=== PATIENT | female | born 1960 | race Caucasian/White ===

== ENCOUNTER → 2016-11-24 | Outpatient (CLI) | payer BC ==
[~2016-11-24] MED LIST: ACHD5005 PO; ASP325T PO; ATEN50TA PO; DULO60CA6 PO; GLIM4TAB PO; LOSA1TAB20 PO; LOVA20TA2 PO; OMEP-10 PO; SIMV20TA3 PO; SITA1TAB2 PO
--- NOTE | 2016-11-28 09:29 | Diagnostic Imaging Report ---
Bilateral screening mammogram The current study was also evaluated with a Computer Aided Detection (CAD) system. Indication: Screening. No current complaints stated on the questionnaire. COMPARISON: 6--16 FINDINGS: The breasts are composed of scattered fibroglandular densities. There are occasional benign-appearing calcifications. Allowing for technique and positional differences, no suspicious change is seen. IMPRESSION: No significant change. ACR BI-RADS Category 2: Benign findings. Result letter will be mailed to the patient. Note: At least 10% of breast cancer is not imaged by mammography. Dictated by: Dictated on workstation # [id number]
== END ==
LOC: RAD 12:47
PROVIDERS: ATTEND Obstetrics & Gynecology
DX: Z12.31 Encounter for screening mammogram for malignant neoplasm of breast (principal)
CPT/HCPCS: 77067

== ENCOUNTER → 2016-12-08 | Outpatient (CLI) | payer BC ==
--- NOTE | 2016-12-08 16:01 | Diagnostic Imaging Report ---
INDICATION: Knee pain, grinding. EXAMINATION: Three views of the right knee were obtained. FINDINGS: Tricompartmental osteoarthritic changes, medial greater than lateral, and most notably at the patellofemoral compartment. No opaque loose body. No fracture. IMPRESSION: Osteoarthritis with no acute bony abnormality. Dictated by: Dictated on workstation # [id number]
== END ==
LOC: RAD 13:23
PROVIDERS: ATTEND Nurse Practitioner Family
DX: M17.11 Unilateral primary osteoarthritis, right knee (principal)
CPT/HCPCS: 73562

== ENCOUNTER → 2016-12-27 | Outpatient (CLI) | payer BC ==
--- NOTE | 2016-12-27 11:31 | Diagnostic Imaging Report ---
PROCEDURE: MRI right joint lower extremity without contrast. TECHNIQUE: Multiplanar, multisequence MR imaging of the right knee was performed without contrast. COMPARISON: Knee radiographs of 12/08/2016. INDICATION: Knee pain. FINDINGS: MENISCI Medial meniscus: There is a complete versus near complete radial tear through the posterior horn of the medial meniscus. The posterior root insertional fibers have a heterogeneous frayed appearance but some may remain intact. The body of the medial meniscus is partially extruded into the medial gutter. Lateral meniscus: Mild degenerative free edge truncation of the posterior horn of the lateral meniscus. LIGAMENTS ACL: Intact. PCL: Intact. MCL: MCL is intact with moderate thickening of the proximal aspect, indicative of old MCL injury which has healed through mature scar formation. LCL: The lateral collateral ligamentous complex is intact. EXTENSOR MECHANISM The extensor mechanism is intact. CARTILAGE Medial compartment: Multifocal partial-thickness chondral fissuring and chondral loss. There is full-thickness chondral fissuring within the posterior weightbearing surface. Lateral compartment: Low-grade partial-thickness chondral wear throughout the lateral compartment without superimposed full-thickness chondromalacia. Patellofemoral compartment: Diffuse full-thickness chondral loss throughout the lateral patellar facet with underlying subchondral bone marrow edema and cystic change. There is full-thickness chondromalacia of the opposing lateral femoral trochlea as well. BONE No fracture, stress fracture or osteonecrosis. SOFT TISSUE: Small knee joint effusion with mild synovitis. Small Viramontes's cyst with partial rupture as fluid is seen tracking along the superficial aspect of the medial head of the gastrocnemius. IMPRESSION: 1. Complete versus near-complete radial tear of the posterior horn of the medial meniscus. The body of the medial meniscus is partially extruded into the gutter. 2. 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 3. Small Viramontes's cyst which is partially ruptured. 4. Small knee joint effusion with synovitis. Dictated by: Dictated on workstation # [id number]
== END ==
LOC: RAD 10:08
PROVIDERS: ATTEND Nurse Practitioner Family
DX: S83.241A Other tear of medial meniscus, current injury, right knee, initial encounter (principal); M22.41 Chondromalacia patellae, right knee; M71.21 Synovial cyst of popliteal space [Baker], right knee; M25.461 Effusion, right knee; X58.XXXA Exposure to other specified factors, initial encounter; Y99.8 Other external cause status
CPT/HCPCS: 73721

== ENCOUNTER → 2018-04-29 | Outpatient (CLI) | payer BC ==
--- NOTE | 2018-04-30 10:54 | Diagnostic Imaging Report ---
Digital mammogram. Bilateral screening with 3-D tomosynthesis. The study was compared to the prior exams of 11/24/2016, 11/11/2015, and 09/24/2014. At this time there are no current complaints. The current study was also evaluated with a Computer Aided Detection (CAD) system. FINDINGS: There are scattered fibroglandular densities in both breasts which could obscure a lesion. Overall, there does not appear to have been any significant change when compared to the prior exam. No primary or secondary sign of malignancy is noted. IMPRESSION: There is no radiographic evidence for malignancy. ACR BI-RADS Category 1: Negative. Result letter will be mailed to the patient. Note: At least 10% of breast cancer is not imaged by mammography. Dictated by: Dictated on workstation # [id number]
== END ==
LOC: RAD 07:53
PROVIDERS: ATTEND Obstetrics & Gynecology
DX: Z12.31 Encounter for screening mammogram for malignant neoplasm of breast (principal)
CPT/HCPCS: 77067

== ENCOUNTER 2018-05-30 12:28 | Outpatient (CLI) | payer BC ==
[~2018-05-30] VITALS: Ht 170.2 cm; Wt 108.4 kg
[~2018-05-30 12:28] MED LIST changes: +DULA0.75 SQ; +DULO20CA18 PO; +METF-397 PO
== END 2018-05-30 12:30 | disposition home or self-care (01) ==
LOC: PREOP 12:28
PROVIDERS: ATTEND Internal Medicine
DX: Z01.818 Encounter for other preprocedural examination (principal)

== ENCOUNTER 2018-05-31 07:25 | Day surgery (SDC) | payer BC ==
--- NOTE | 2018-05-17 06:04 | HISTORY AND PHYSICAL ---
DATE OF SERVICE: COLONOSCOPY HISTORY AND PHYSICAL HISTORY OF PRESENT ILLNESS: The patient is a 57-year-old white female referred by Dr. Salinas for screening colonoscopy. She was evaluated in the office on 05/09/2018. She is deemed to be a little higher than average risk as she has a grandmother diagnosed with colon cancer in her 60s. She reports that she has been feeling well. Dr. Salinas, local senior software development manager wanted my opinion on some lesions on her back. Sometimes, she has some itching associated. She has no history of skin cancer and is not aware of any family history for melanoma. She has had no change in bowel habit. Denies bright red blood per rectum or melena and has had no reported abdominal pain. PAST MEDICAL HISTORY: Significant for type 2 diabetes mellitus, hypertension, hyperlipidemia with no known history of vascular disease. MEDICATIONS ON ADMISSION: Include: 1. Trulicity 1.5 mg subcu weekly. 2. Atenolol 100 mg daily. 3. Simvastatin 40 mg daily. 4. Losartan and HCT 100/12.5 daily. 5. Glimepiride 4 mg daily. 6. Metformin 500 mg daily. 7. Duloxetine 30 mg daily. FAMILY HISTORY: Pertinent for colon cancer in grandmother diagnosed in her 60s. Both parents are living in their 80s. One may have had a history of colon polyps. 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 She has a 15 pack smoking history, but quit many years ago with no history of illicit drug use. PHYSICAL EXAMINATION: GENERAL: Reveals a pleasant white female in no acute distress. VITAL SIGNS: Weight is 243.8 pounds, he is up eight pounds from 5 years ago. Blood pressure 142/62. Heart rate 72 and regular. HEENT: Unremarkable. Sclerae nonicteric. CHEST: Clear to auscultation. CARDIOVASCULAR: Reveals regular rate and rhythm without murmur, S3 or S4. ABDOMEN: Soft, supple without mass, organomegaly or tenderness. EXTREMITIES: Reveal no cyanosis, clubbing or edema. SKIN: She has multiple lentigines on her back. No evidence for neoplasia is identified. Skin is slightly dry. ASSESSMENT AND PLAN: 1. The patient was set up for screening colonoscopy on . Prep instructions with Suprep kit were given and questions were answered. 2. The patient was reassured about multiple lentigines on her back. Discussed the importance of sunscreen. 3. Mild dyshidrotic eczema. Discussed the importance of moisturizing and avoiding soap to the back or extremities unless visible dirt is present. Otherwise, she is using it in moist areas of the body. I thank you for the referral of this pleasant lady. Sincerely, Job ID: [id number] DocumentID: [id number] Dictated Date: 05/09/2018 16:53:41 Regulatory Associate Date: 05/09/2018 18:02:46 Dictated By: LIBORIO العلي MD
[~2018-05-31] VITALS: Ht 170.2 cm; Wt 108.4 kg
[2018-05-31] MEDS ORDERED: D5 LR IV SOLUTION 1,000 ML IV ONE (07:36)
[2018-05-31 07:54] VITALS: BP 140/73
[2018-05-31] MEDS ORDERED: D5 LR IV SOLUTION 1,000 ML IV STA (08:05)
[2018-05-31] MEDS ORDERED: LIDOCAINE JELLY 2% 6 ML SYRINGE ONE (08:12)
[2018-05-31] MEDS ORDERED: MIDAZOLAM 2 MG/2 ML (VERSED) VIAL ONE ×3 (08:12)
[2018-05-31] MEDS ORDERED: fentaNYL INJECTION 100 MCG/2 ML AMP ONE ×2 (08:12→08:47)
[2018-05-31] MEDS ORDERED: LIDOCAINE JELLY 2% 6 ML SYRINGE MM PRN (08:15)
[2018-05-31] MEDS ORDERED: fentaNYL INJECTION 100 MCG/2 ML AMP IVP ONE (08:15)
[2018-05-31] MEDS ORDERED: MIDAZOLAM 2 MG/2 ML (VERSED) VIAL IVP ONE (08:15)
[2018-05-31 09:15] VITALS: BP 126/61
--- OUTSIDE RECORDS SUMMARY | 2018-05-31 09:15 | XMS REPORT | CCD ---
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 Name Role Phone PP Unavailable CCM Unavailable Summary Purpose Interface Exchange Insurance Providers Payer name Policy type / Coverage type Covered alliance party ID Effective Begin Date Effective End Date Blue Cross [facility] Blue Cross/[facility] [id number] Unknown Unknown Family history Mother Diagnosis Age At Onset Diabetes mellitus Type 2 Unknown Depression Unknown Brother Diagnosis Age At Onset Hypertension Unknown Diabetes mellitus Type 2 Unknown Daughter Diagnosis Age At Onset Hypertension Unknown Father Diagnosis Age At Onset Hypertension Unknown Social History Social History Element Codes Description Effective Dates Marital status Unknown Stuart 07/03/2017 Number of children Unknown 2 01/11/2015 Employment Unknown Currently employed [employer] 01/11/[address]: 0638688 Quit over 10 years ago 01/11/2015 Number of years using tobacco Unknown 10 - 20 01/11/2015 Number of cigarettes/day Unknown 20 (One Pack) 01/11/2015 Alcohol history Unknown occasionally drinks alcohol 01/11/2015 Allergies, Adverse Reactions, Alerts Substance Reaction Codes Entered Date Inactivated Date Status * NO KNOWN FOOD ALLERGIES Unknown 01/11/2015 No Inactive Date Active * NO KNOWN DRUG ALLERGIES Unknown 01/11/2015 No Inactive Date Active Past Medical History Illness Codes Condition Status Onset Date Resolved Date Encounter for screening mammogram for malignant neoplasm of breast ICD-9: V76.10 ICD-10: Z12.31 Active 05/03/2018 Unknown Acute laryngopharyngitis ICD-9: 465.0 ICD-10: J06.0 Active 07/03/2017 Unknown Acute upper respiratory infection, unspecified ICD-9: 465.9 ICD-10: J06.9 Active 01/09/2017 Unknown Gastro-esophageal reflux disease without esophagitis ICD-9: 530.81 ICD-10: K21.9 Active 04/05/2018 Unknown Other allergic rhinitis ICD-9: 477.8 ICD-10: J30.89 Active 07/03/2017 Unknown Rash and other nonspecific skin eruption ICD-9: 782.1 ICD-10: R21 Active 04/05/2018 Unknown Ocular pain, left eye ICD-9: 379.91 ICD-10: H57.12 Active 11/09/2017 Unknown Pain in right knee ICD -9: 719.46 ICD-10: M25.561 Active 12/08/2016 Unknown Other malaise ICD-9: 780.79 ICD-10: R53.81 Active 07/03/2017 Unknown Essential (primary) hypertension ICD-9: 401.9 ICD-10: I10 Active 06/12/2016 Unknown Type 2 diabetes mellitus without complications ICD-9: 250.00 ICD-10: E11.9 Active 12/13/2015 Unknown Cough ICD-9: 786.2 ICD-10: R05 Active 06/12/2016 Unknown Other instability, right knee ICD-9: 718.86 ICD-10: M25.361 Active 12/20/2016 Unknown Mixed hyperlipidemia ICD-9: 272.4 ICD-10: E78.2 Active 07/11/2015 Unknown Acute recurrent maxillary sinusitis ICD-9: 461.0 ICD-10: J01.01 Active 06/12/2016 Unknown Actinic keratosis ICD- 9: 702.0 ICD-10: L57.0 Active 12/13/2015 Unknown Diabetes Unknown Active 01/11/2015 Unknown Hyperlipidemia Unknown Active 01/11/2015 Unknown Hypertension Unknown Active 01/11/2015 Unknown ANXIETY STATE ICD-9: 300.00 Active 01/10/2015 Unknown DIABETES TYPE II ICD-9 : 250.00 Active 01/10/2015 Unknown ESSENTIAL HYPERTENSION ICD-9: 401.9 Active 01/10/2015 Unknown HYPERLIPIDEMIA ICD-9: 272.4 Active 01/10/2015 Unknown Problems Condition Codes Effective Dates Condition Status Encounter for screening mammogram for malignant neoplasm of breast ICD-9: V76.10 ICD-10: Z12.31 05/03/2018 Active Acute laryngopharyngitis ICD-9: 465.0 ICD-10: J06.0 07/03/2017 Active Acute upper respiratory infection, unspecified ICD-9: 465.9 ICD-10: J06.9 01/09/2017 Active Gastro-esophageal reflux disease without esophagitis ICD-9: 530.81 ICD-10: K21.9 04/05/2018 Active Other allergic rhinitis ICD-9: 477.8 ICD-10: J30.89 07/03/2017 Active Rash and other nonspecific skin eruption ICD-9: 782.1 ICD-10: R21 04/05/2018 Active Ocular pain, left eye ICD-9: 379.91 ICD-10: H57.12 11/09/2017 Active Pain in right knee ICD -9: 719.46 ICD-10: M25.561 12/08/2016 Active Other malaise ICD-9: 780.79 ICD-10: R53.81 07/03/2017 Active Essential (primary) hypertension ICD-9: 401.9 ICD-10: I10 06/12/2016 Active Type 2 diabetes mellitus without complications ICD-9: 250.00 ICD-10: E11.9 12/13/2015 Active Cough ICD-9: 786.2 ICD-10: R05 06/12/2016 Active Other instability, right knee ICD-9: 718.86 ICD-10: M25.361 12/20/2016 Active Mixed hyperlipidemia ICD-9: 272.4 ICD-10: E78.2 07/11/2015 Active Acute recurrent maxillary sinusitis ICD-9: 461.0 ICD-10: J01.01 06/12/2016 Active Actinic keratosis ICD- 9: 702.0 ICD-10: L57.0 12/13/2015 Active Diabetes Unknown 01/11/2015 Active Hyperlipidemia Unknown 01/11/2015 Active Hypertension Unknown 01/11/2015 Active ANXIETY STATE ICD-9: 300.00 01/10/2015 Active DIABETES TYPE II ICD-9 : 250.00 01/10/2015 Active ESSENTIAL HYPERTENSION ICD-9: 401.9 01/10/2015 Active HYPERLIPIDEMIA ICD-9: 272.4 01/10/2015 Active Medications Medication Codes Instructions Start Date Stop Date Status Fill Instructions ketoconazole 2 % topical cream RxNorm: 016356 1 Application TOP BID 04/05/2018 No Stop Date Active Zithromax Z-Vignesh 250 mg tablet RxNorm: 716043 1 Tablet(s) PO UD 04/05/2018 No Stop Date Active triamcinolone acetonide 0.025 % topical cream RxNorm: 7205156 1 Application TOP BID 04/05/2018 No Stop Date Active Diflucan 150 mg tablet RxNorm: 864835 1 Tablet(s) PO daily dont start until z- pack is finished 04/05/2018 04/11/2018 Inactive losartan 100 mg-hydrochlorothiazide 12.5 mg tablet RxNorm: 072679 TAKE ONE TABLET BY MOUTH DAILY 02/20/2018 07/19/2018 Active Cymbalta 30 mg capsule,delayed release RxNorm: 948302 TAKE ONE CAPSULE BY MOUTH DAILY 02/19/2018 07/18/2018 Active atenolol 100 mg tablet RxNorm: 116585 TAKE ONE TABLET BY MOUTH DAILY 01/25/2018 07/18/2019 Active glimepiride 4 mg tablet RxNorm: 964105 1 Tablet(s) PO daily -Managed by Dr. Hsu 11/09/2017 No Stop Date Active gentamicin 0.3 % eye drops RxNorm: 133079 2 Drop(s) ophthalmic (eye) QID 11/09/2017 11/15/2017 Inactive atenolol 100 mg tablet RxNorm: 180736 1 Tablet(s) PO daily TAKE ONE TABLET BY MOUTH DAILY 08/01/2017 01/24/2018 Inactive Cymbalta 30 mg capsule,delayed release RxNorm: 647811 TAKE ONE CAPSULE BY MOUTH DAILY 07/30/2017 01/25/2018 Inactive losartan 100 mg-hydrochlorothiazide 12.5 mg tablet RxNorm: 185759 TAKE ONE TABLET BY MOUTH DAILY 07/30/2017 01/25/2018 Inactive Trulicity 1.5 mg/0.5 mL subcutaneous pen injector RxNorm: 9378282 1 injection SQ QW -Managed by Dr. Hsu 07/03/2017 No Stop Date Active Zithromax Z-Vignesh 250 mg tablet RxNorm: 166082 1 Tablet(s) PO UD 07/03/2017 07/29/2017 Inactive Cymbalta 30 mg capsule,delayed release RxNorm: 152916 TAKE ONE CAPSULE BY MOUTH DAILY 03/12/2017 07/09/2017 Inactive losartan 100 mg-hydrochlorothiazide 12.5 mg tablet RxNorm: 881453 TAKE ONE TABLET BY MOUTH DAILY 03/07/2017 07/04/2017 Inactive Diflucan 150 mg tablet RxNorm: 445880 1 Tablet(s) PO daily 12/201601/21/2017 Inactive Diflucan 150 mg tablet RxNorm: 106424 1 Tablet(s) PO daily 12/201601/14/2017 Inactive ceftriaxone 500 mg solution for injection RxNorm: 0946477 1 Milliliter(s) Inj 01/09/2017 01/09/2017 Inactive Augmentin 875 mg-125 mg tablet RxNorm: 723738 1 Tablet(s) PO BID 01/09/2017 01/15/2017 Inactive Voltaren 1 % topical gel RxNorm: 767632 1 Application TOP TID as needed 12/08/2016 No Stop Date Active losartan 100 mg-hydrochlorothiazide 12.5 mg tablet RxNorm: 129973 TAKE ONE TABLET BY MOUTH DAILY 12/01/2016 02/28/2017 Inactive atenolol 100 mg tablet RxNorm: 523494 TAKE ONE TABLET BY MOUTH DAILY 12/01/2016 02/28/2017 Inactive atenolol 100 mg tablet RxNorm: 960619 1 Tablet(s) PO daily 11/30/2016 Inactive losartan 100 mg-hydrochlorothiazide 12.5 mg tablet RxNorm: 926330 1 Tablet(s) PO daily 11/01/2016 11/30/2016 Inactive atenolol 50 mg tablet RxNorm: 535630 TAKE ONE TABLET BY MOUTH DAILY 08/04/2016 10/23/2016 Inactive Cymbalta 30 mg capsule,delayed release RxNorm: 269290 TAKE ONE CAPSULE BY MOUTH DAILY 08/04/2016 12/31/2016 Inactive losartan 50 mg-hydrochlorothiazide 12.5 mg tablet RxNorm: 466804 TAKE ONE TABLET BY MOUTH DAILY 06/19/2016 10/23/2016 Inactive doxycycline hyclate 100 mg tablet RxNorm: 742477 1 Tablet(s) PO BID 06/13/2016 06/19/2016 Inactive Kenalog 40 mg/mL suspension for injection RxNorm: 1778033 Milliliter(s) Inj 06/13/2016 06/13/2016 Inactive atenolol 50 mg tablet RxNorm: 419360 1 Tablet(s) PO daily 201511/09/2015 Inactive atenolol 50 mg tablet RxNorm: 615201 1 Tablet(s) PO daily 201505/07/2016 Inactive Cymbalta 30 mg capsule,delayed release RxNorm: 097396 TAKE ONE CAPSULE BY MOUTH DAILY 09/16/2015 03/13/2016 Inactive losartan 50 mg-hydrochlorothiazide 12.5 mg tablet RxNorm: 315670 TAKE ONE TABLET BY MOUTH DAILY 08/06/2015 02/01/2016 Inactive Cymbalta 30 mg capsule,delayed release RxNorm: 732866 TAKE ONE CAPSULE BY MOUTH DAILY 06/28/2015 08/26/2015 Inactive losartan 50 mg-hydrochlorothiazide 12.5 mg tablet RxNorm: 104814 1 Tablet(s) PO daily 05/05/2015 07/03/2015 Inactive Cymbalta 60 mg capsule,delayed release RxNorm: 243512 1 Capsule(s) PO QHS 03/15/2015 07/11/2015 Inactive Cymbalta 30 mg capsule,delayed release RxNorm: 249857 1 Capsule(s) PO daily 01/11/2015 04/10/2015 Inactive Cymbalta 60 mg capsule,delayed release RxNorm: 742304 1 Capsule(s) PO QHS please call office for appointment 11/23/2014 Inactive Cymbalta 60 mg capsule,delayed release RxNorm: 809769 1 Capsule(s) PO QHS please call office for appointment 11/23/2014 Inactive simvastatin 20 mg tablet RxNorm: 864636 1 Tablet(s) PO daily No Start Date Active metformin 500 mg tablet RxNorm: 619259 2 Tablet(s) PO BID No Start Date Active glimepiride 4 mg tablet RxNorm: 020213 2 Tablet(s) PO daily No Start Date 11/08/2017 Inactive Lantus 100 unit/mL subcutaneous solution RxNorm: 148872 12 Unit(s) SQ QHS No Start Date 01/21/2017 Inactive atenolol oral RxNorm: 1202 oral No Start Date 12/14/2015 Inactive Bydureon 2 mg/0.65 mL subcutaneous pen injector RxNorm: 6272546 Milliliter(s) SQ weekly No Start Date 12/13/2015 Inactive losartan 50 mg-hydrochlorothiazide 12.5 mg tablet RxNorm: 480940 1 Tablet(s) PO daily No Start Date 05/04/2015 Inactive Trulicity 0.75 mg/0.5 mL subcutaneous pen injector RxNorm: 8266593 Milliliter(s) SQ QW No Start Date 07/02/2017 Inactive Medication Administered Medication Codes Instructions Start Date Status ceftriaxone 500 mg solution for injection RxNorm: 0373136 1Milliliter 01/09/2017 No longer Active Kenalog 40 mg/mL suspension for injection RxNorm: 1181772 Milliliter 06/13/2016 No longer Active Immunizations No Immunization data Assessments Condition Codes Effective Dates Encounter for screening mammogram for malignant neoplasm of breast ICD-10: Z12.31 ICD-9: V76.10 05/03/2018 Gastro-esophageal reflux disease without esophagitis ICD-10 : K21.9 ICD-9: 530.81 04/05/2018 Acute upper respiratory infection, unspecified ICD-10: J06.9 ICD-9: 465.9 04/05/2018 Other allergic rhinitis ICD-10: J30.89 ICD-9: 477.8 04/05/2018 Rash and other nonspecific skin eruption ICD-10: R21 ICD-9: 782.1 04/05/2018 Pain in right knee ICD-10: M25.561 ICD-9: 719.46 11/09/2017 Ocular pain, left eye ICD-10: H57.12 ICD-9: 379.91 11/09/2017 Acute laryngopharyngitis ICD-10: J06.0 ICD-9: 465.0 07/03/2017 Other malaise ICD-10: R53.81 ICD-9: 780.79 07/03/2017 Type 2 diabetes mellitus without complications ICD-10: E11.9 ICD-9: 250.00 03/30/2017 Essential (primary) hypertension ICD-10: I10 ICD-9: 401.9 03/30/2017 Cough ICD-10: R05 ICD-9: 786.2 01/09/2017 Other instability, right knee ICD-10: M25.361 ICD-9: 718.86 12/20/2016 Mixed hyperlipidemia ICD-10: E78.2 ICD-9: 272.4 09/29/2016 Acute recurrent maxillary sinusitis ICD-10: J01.01 ICD-9: 461.0 06/13/2016 Actinic keratosis ICD-10: L57.0 ICD-9: 702.0 12/14/2015 ESSENTIAL HYPERTENSION ICD-9: 401.9 01/11 ANXIETY STATE ICD-9: 300.00 01/11/2015 HYPERLIPIDEMIA ICD-9: 272.4 01/11/2015 DIABETES TYPE II ICD-9: 250.00 2014 Reason For Visit Reason For Visit Effective Dates Notes gastroesophageal reflux 04/05/2018 eyelid edema 11/09/2017 cough 07/03/2017 hypertension 03/30/2017 earache 01/09/2017 knee pain 12/20/2016 knee pain 12/08/2016 hypertension 11/30/2016 medication follow up 11/01/2016 hypertension 10/18/2016 anxiety 09/29/2016 sinus congestion 06/13/2016 skin lesion 12/14/2015 anxiety 07/12/2015 anxiety 01/11/2015 Results Observation Observation Code Item Item Code Result Date C A/B FLU 7269494 Influenza A Scr Negative 07/03/2017 C A/B FLU 0634800 Influenza B Scr Negative 07/03/2017 C A/B FLU 2475976 Influenza Intrp B AG: PRID:PT:NOSE:NOM:IF See Footnote 07/03/2017 Review of Systems System Result Effective Dates Constitutional recent illness 04/05/2018 Constitutional chills 04/05/2018 Constitutional No diaphoresis 04/05/2018 Eyes No eye erythema 04/05/2018 Ears/Nose/Throat/Neck nasal allergies Ears/Nose/Throat/Neck nasal discharge Ears/Nose/Throat/Neck postnasal drip Ears/Nose/Throat/Neck sinus congestion Cardiovascular No chest pain/pressure Cardiovascular No dyspnea 04/05/2018 Respiratory No chest congestion 2017 Respiratory cough 04/05/2018 Respiratory No dyspnea 04/05/2018 Gastrointestinal No constipation 2017 Gastrointestinal No diarrhea 04/05/2018 Gastrointestinal No nausea 04/05/2018 Gastrointestinal No vomiting 04/05/2018 Neurologic No alteration of consciousness 04/05/2018 Neurologic No mental status change 2017 Constitutional No fever 04/05/2018 Gastrointestinal gastroesophageal reflux 04/05/2018 Dermatologic rash 04/05/2018 Constitutional recent illness 11/09/2017 Constitutional No anorexia 11/09/2017 Constitutional No night sweats 2017 Constitutional No chills 11/09/2017 Constitutional No diaphoresis 11/09/2017 Constitutional No fatigue 11/09/2017 Constitutional No fever 11/09/2017 Constitutional No insomnia 11/09/2017 Constitutional No malaise 11/09/2017 Constitutional No weight loss 11/09/2017 Constitutional No weight gain 11/09/2017 Eyes eye erythema 11/09/2017 Ears/Nose/Throat/Neck nasal allergies 06/2017 Ears/Nose/Throat/Neck nasal discharge 06/2017 Musculoskeletal joint complaint 2017 Dermatologic No rash 11/09/2017 Neurologic No alteration of consciousness 11/09/2017 Respiratory No cough 11/09/2017 Constitutional recent illness 07/03/2017 Constitutional chills 07/03/2017 Constitutional No diaphoresis 07/03/2017 Constitutional fever 07/03/2017 Eyes No eye erythema 07/03/2017 Ears/Nose/Throat/Neck nasal allergies Ears/Nose/Throat/Neck nasal discharge Ears/Nose/Throat/Neck postnasal drip Ears/Nose/Throat/Neck sinus congestion Ears/Nose/Throat/Neck sore throat 2017 Cardiovascular No chest pain/pressure Cardiovascular No dyspnea 07/03/2017 Respiratory No chest congestion 2017 Respiratory cough 07/03/2017 Respiratory No dyspnea 07/03/2017 Gastrointestinal No constipation 2017 Gastrointestinal No diarrhea 07/03/2017 Gastrointestinal No nausea 07/03/2017 Gastrointestinal No vomiting 07/03/2017 Dermatologic No rash 07/03/2017 Neurologic No alteration of consciousness 07/03/2017 Neurologic No mental status change 2017 Constitutional No recent illness 2016 Constitutional No chills 03/30/2017 Constitutional No diaphoresis 03/30/2017 Constitutional No fever 03/30/2017 Eyes No blindness 03/30/2017 Ears/Nose/Throat/Neck No nasal allergies 03/30/2017 Ears/Nose/Throat/Neck No nasal discharge 03/30/2017 Cardiovascular No chest pain/pressure Cardiovascular No dyspnea 03/30/2017 Respiratory No cough 03/30/2017 Respiratory No dyspnea 03/30/2017 Dermatologic No rash 03/30/2017 Neurologic No alteration of consciousness 03/30/2017 Neurologic No mental status change 2016 Gastrointestinal No abdominal pain 2016 Gastrointestinal No constipation 2016 Gastrointestinal No diarrhea 03/30/2017 Genitourinary/Nephrology No dysuria 03/30 Musculoskeletal joint complaint 2016 Psychiatric No depression 03/30/2017 Endocrine No dry or coarse skin 2016 Constitutional recent illness 01/09/2017 Constitutional No anorexia 01/09/2017 Constitutional night sweats 01/09/2017 Constitutional chills 01/09/2017 Constitutional diaphoresis 01/09/2017 Constitutional fatigue 01/09/2017 Constitutional No fever 01/09/2017 Constitutional No insomnia 01/09/2017 Constitutional No malaise 01/09/2017 Constitutional No weight loss 01/09/2017 Constitutional No weight gain 01/09/2017 Eyes No eye erythema 01/09/2017 Eyes No eye discharge 01/09/2017 Ears/Nose/Throat/Neck No dizziness 2016 Ears/Nose/Throat/Neck headache 2016 Ears/Nose/Throat/Neck nasal allergies 06/2016 Ears/Nose/Throat/Neck nasal discharge 06/2016 Ears/Nose/Throat/Neck otalgia 01/09/2017 Ears/Nose/Throat/Neck sore throat 2016 Cardiovascular No chest pain/pressure 06/2016 Cardiovascular No dyspnea 01/09/2017 Cardiovascular No edema 01/09/2017 Respiratory No productive sputum 2016 Respiratory No chest congestion 2016 Respiratory cough 01/09/2017 Gastrointestinal No abdominal pain 2016 Gastrointestinal No constipation 2016 Gastrointestinal No diarrhea 01/09/2017 Genitourinary/Nephrology No dysuria 01/09 Musculoskeletal No joint complaint 2016 Dermatologic No rash 01/09/2017 Neurologic No alteration of consciousness 01/09/2017 Constitutional No recent illness 2016 Constitutional No chills 12/20/2016 Constitutional No diaphoresis 12/20/2016 Constitutional No fever 12/20/2016 Eyes No eye erythema 12/20/2016 Ears/Nose/Throat/Neck No nasal allergies 12/20/2016 Ears/Nose/Throat/Neck No nasal discharge 12/20/2016 Cardiovascular No chest pain/pressure 05/2017 Cardiovascular No dyspnea 12/20/2016 Respiratory No cough 12/20/2016 Respiratory No dyspnea 12/20/2016 Musculoskeletal joint complaint 2016 Dermatologic No rash 12/20/2016 Neurologic No alteration of consciousness 12/20/2016 Neurologic No mental status change 2016 Constitutional No recent illness 2016 Constitutional No chills 12/08/2016 Constitutional No diaphoresis 12/08/2016 Constitutional No fever 12/08/2016 Eyes No eye erythema 12/08/2016 Ears/Nose/Throat/Neck No nasal allergies 12/08/2016 Ears/Nose/Throat/Neck No nasal discharge 12/08/2016 Cardiovascular No chest pain/pressure Cardiovascular No dyspnea 12/08/2016 Respiratory No cough 12/08/2016 Respiratory No dyspnea 12/08/2016 Musculoskeletal joint complaint 2016 Dermatologic No rash 12/08/2016 Neurologic No alteration of consciousness 12/08/2016 Neurologic No mental status change 2016 Constitutional No recent illness 2016 Constitutional No chills 11/30/2016 Constitutional No diaphoresis 11/30/2016 Constitutional No fever 11/30/2016 Eyes No eye erythema 11/30/2016 Ears/Nose/Throat/Neck No nasal allergies 11/30/2016 Ears/Nose/Throat/Neck No nasal discharge 11/30/2016 Cardiovascular No chest pain/pressure Cardiovascular No dyspnea 11/30/2016 Cardiovascular hypertension 11/30/2016 Respiratory No cough 11/30/2016 Respiratory No dyspnea 11/30/2016 Neurologic No alteration of consciousness 11/30/2016 Neurologic No mental status change 2016 Dermatologic No rash 11/30/2016 Constitutional No recent illness 2016 Constitutional No fever 11/01/2016 Constitutional No chills 11/01/2016 Constitutional No diaphoresis 11/01/2016 Eyes No eye erythema 11/01/2016 Ears/Nose/Throat/Neck No nasal discharge 11/01/2016 Ears/Nose/Throat/Neck No nasal allergies 11/01/2016 Cardiovascular No chest pain/pressure Cardiovascular No dyspnea 11/01/2016 Cardiovascular hypertension 11/01/2016 Respiratory No cough 11/01/2016 Respiratory No dyspnea 11/01/2016 Neurologic No alteration of consciousness 11/01/2016 Neurologic No mental status change 2016 Constitutional No recent illness 2016 Constitutional No chills 10/18/2016 Constitutional No diaphoresis 10/18/2016 Constitutional No fever 10/18/2016 Eyes No eye erythema 10/18/2016 Ears/Nose/Throat/Neck No nasal discharge 10/18/2016 Ears/Nose/Throat/Neck No nasal allergies 10/18/2016 Cardiovascular No chest pain/pressure 03/2017 Cardiovascular No dyspnea 10/18/2016 Cardiovascular hypertension 10/18/2016 Cardiovascular No palpitations 2016 Respiratory No cough 10/18/2016 Respiratory No dyspnea 10/18/2016 Gastrointestinal No vomiting 10/18/2016 Gastrointestinal No nausea 10/18/2016 Gastrointestinal No abdominal pain 2016 Dermatologic No rash 10/18/2016 Neurologic No alteration of consciousness 10/18/2016 Neurologic No mental status change 2016 Neurologic headache 10/18/2016 Constitutional No recent illness 2016 Constitutional No anorexia 09/29/2016 Constitutional No night sweats 2016 Constitutional No chills 09/29/2016 Constitutional No diaphoresis 09/29/2016 Constitutional No fatigue 09/29/2016 Constitutional No fever 09/29/2016 Constitutional No insomnia 09/29/2016 Constitutional No malaise 09/29/2016 Constitutional No weight loss 09/29/2016 Constitutional No weight gain 09/29/2016 Eyes No eye discharge 09/29/2016 Eyes No eye erythema 09/29/2016 Ears/Nose/Throat/Neck No nasal allergies 09/29/2016 Ears/Nose/Throat/Neck No nasal discharge 09/29/2016 Cardiovascular No chest pain/pressure Cardiovascular No dyspnea 09/29/2016 Cardiovascular No edema 09/29/2016 Respiratory No productive sputum 2016 Gastrointestinal No abdominal pain 2016 Gastrointestinal No constipation 2016 Genitourinary/Nephrology No dysuria 09/29 Musculoskeletal joint complaint 2016 Neurologic No alteration of consciousness 09/29/2016 Endocrine No dry or coarse skin 2016 Gastrointestinal No diarrhea 09/29/2016 Dermatologic No rash 09/29/2016 Psychiatric anxiety 09/29/2016 Constitutional recent illness 06/13/2016 Constitutional No anorexia 06/13/2016 Constitutional night sweats 06/13/2016 Constitutional chills 06/13/2016 Constitutional diaphoresis 06/13/2016 Constitutional fatigue 06/13/2016 Constitutional fever 06/13/2016 Constitutional No insomnia 06/13/2016 Constitutional No malaise 06/13/2016 Constitutional No weight loss 06/13/2016 Constitutional No weight gain 06/13/2016 Eyes No eye erythema 06/13/2016 Eyes No eye discharge 06/13/2016 Ears/Nose/Throat/Neck dizziness 2016 Ears/Nose/Throat/Neck headache 2016 Ears/Nose/Throat/Neck nasal discharge 08/2016 Ears/Nose/Throat/Neck otalgia 06/13/2016 Ears/Nose/Throat/Neck No sinus congestion 06/13/2016 Ears/Nose/Throat/Neck No sore throat 08/2016 Cardiovascular No chest pain/pressure 08/2016 Respiratory cough 06/13/2016 Gastrointestinal No abdominal pain 2016 Gastrointestinal No constipation 2016 Gastrointestinal No diarrhea 06/13/2016 Gastrointestinal nausea 06/13/2016 Genitourinary/Nephrology No dysuria 06/13 Musculoskeletal No joint complaint 2016 Dermatologic No rash 06/13/2016 Neurologic No alteration of consciousness 06/13/2016 Constitutional No recent illness 2015 Constitutional No anorexia 12/14/2015 Constitutional No night sweats 2015 Constitutional No chills 12/14/2015 Constitutional No diaphoresis 12/14/2015 Constitutional No fever 12/14/2015 Constitutional No fatigue 12/14/2015 Constitutional No insomnia 12/14/2015 Constitutional No malaise 12/14/2015 Constitutional No weight loss 12/14/2015 Constitutional No weight gain 12/14/2015 Dermatologic actinic keratosis 2015 Musculoskeletal No joint complaint 2015 Genitourinary/Nephrology No dysuria 12/13 Gastrointestinal No abdominal pain 2015 Gastrointestinal No constipation 2015 Gastrointestinal diarrhea 12/14/2015 Eyes No eye discharge 12/14/2015 Eyes No eye erythema 12/14/2015 Ears/Nose/Throat/Neck No nasal discharge 12/14/2015 Ears/Nose/Throat/Neck No nasal allergies 12/14/2015 Cardiovascular No chest pain/pressure 10/2015 Cardiovascular No dyspnea 12/14/2015 Cardiovascular No edema 12/14/2015 Respiratory No productive sputum 2015 Neurologic No alteration of consciousness 12/14/2015 Endocrine No dry or coarse skin 2015 Constitutional No recent illness 2015 Constitutional No anorexia 07/12/2015 Constitutional night sweats 07/12/2015 Constitutional No chills 07/12/2015 Constitutional No diaphoresis 07/12/2015 Constitutional No fatigue 07/12/2015 Constitutional No fever 07/12/2015 Constitutional No insomnia 07/12/2015 Constitutional No malaise 07/12/2015 Constitutional No weight loss 07/12/2015 Constitutional No weight gain 07/12/2015 Eyes No eye discharge 07/12/2015 Eyes No eye erythema 07/12/2015 Ears/Nose/Throat/Neck No dizziness 2015 Ears/Nose/Throat/Neck No headache 2015 Ears/Nose/Throat/Neck nasal discharge 06/2015 Ears/Nose/Throat/Neck No sinus congestion 07/12/2015 Cardiovascular No chest pain/pressure 06/2015 Cardiovascular No dyspnea 07/12/2015 Cardiovascular No edema 07/12/2015 Respiratory cough 07/12/2015 Respiratory dyspnea on exertion 2015 Gastrointestinal No abdominal pain 2015 Gastrointestinal No constipation 2015 Gastrointestinal No diarrhea 07/12/2015 Genitourinary/Nephrology No dysuria 07/12 Dermatologic No rash 07/12/2015 Neurologic No alteration of consciousness 07/12/2015 Psychiatric anxiety 07/12/2015 Endocrine No dry or coarse skin 2015 Ears/Nose/Throat/Neck nasal allergies 06/2015 Musculoskeletal joint complaint 2015 Constitutional No recent illness 2014 Constitutional No anorexia 01/11/2015 Constitutional night sweats 01/11/2015 Constitutional No chills 01/11/2015 Constitutional No diaphoresis 01/11/2015 Constitutional No fatigue 01/11/2015 Constitutional No fever 01/11/2015 Constitutional No insomnia 01/11/2015 Constitutional No malaise 01/11/2015 Constitutional No weight loss 01/11/2015 Constitutional No weight gain 01/11/2015 Eyes No eye discharge 01/11/2015 Eyes No eye erythema 01/11/2015 Ears/Nose/Throat/Neck No dizziness 2014 Ears/Nose/Throat/Neck No headache 2014 Ears/Nose/Throat/Neck nasal discharge 08/2014 Ears/Nose/Throat/Neck No sinus congestion 01/11/2015 Cardiovascular No chest pain/pressure 08/2014 Cardiovascular No dyspnea 01/11/2015 Cardiovascular No edema 01/11/2015 Respiratory dyspnea on exertion 2014 Respiratory No cough 01/11/2015 Gastrointestinal No abdominal pain 2014 Gastrointestinal No constipation 2014 Gastrointestinal No diarrhea 01/11/2015 Genitourinary/Nephrology No dysuria 01/11 Musculoskeletal joint complaint 2014 Dermatologic No rash 01/11/2015 Neurologic No alteration of consciousness 01/11/2015 Psychiatric anxiety 01/11/2015 Endocrine No dry or coarse skin 2014 Physical Exam Exam Name System Name Item Name Status Result Effective Dates Notes Full Exam - ENT Constitutional general appearance Overall: well nourished 04/05/2018 None Full Exam - ENT Constitutional general appearance Overall: well developed 04/05/2018 None Full Exam - ENT Constitutional general appearance Overall: in no acute distress 04/05/2018 None Full Exam - ENT Ears/Nose/Throat otoscopic exam Overall: external auditory canals normal 04/05/2018 None Full Exam - ENT Ears/Nose/Throat otoscopic exam Left tympanic membrane: air -fluid level 04/05/2018 None Full Exam - ENT Ears/Nose/Throat otoscopic exam Right tympanic membrane: air-fluid level 04/05/2018 None Full Exam - ENT Ears/Nose/Throat lips/ teeth/gingiva Overall: benign lips 04/05/2018 None Full Exam - ENT Ears/Nose/Throat oropharynx Overall: oral mucosa clear 04/05/2018 None Full Exam - ENT Ears/Nose/Throat oropharynx Posterior Pharynx: clear post nasal drainage 04/05/2018 None Full Exam - ENT Ears/Nose/Throat oropharynx Posterior Pharynx: erythema 04/05/2018 None Full Exam - ENT Respiratory inspection Overall: no retractions 04/05/2018 None Full Exam - ENT Respiratory inspection Overall: normal rate None Full Exam - ENT Respiratory auscultation Overall: breath sounds clear bilaterally 04/05/2018 None Full Exam - ENT Cardiovascular auscultation of heart Rate: normal rate 04/05/2018 None Full Exam - ENT Cardiovascular auscultation of heart Rhythm: regular rhythm 04/05/2018 None Full Exam - ENT Lymphatic palpation of lymph nodes Overall: anterior cervical chain benign 04/05/2018 None Full Exam - ENT Lymphatic palpation of lymph nodes Overall: posterior cervical chain benign 04/05/2018 None Full Exam - ENT Neurologic mood and affect Overall: normal mood 04/05/2018 None Full Exam - ENT Neurologic mood and affect Overall: normal affect 04/05/2018 None Full Exam - ENT Neurologic orientation Overall: oriented to person, place and time 04/05/2018 None Full Exam - ENT Abdomen abdominal exam Overall: normal bowel sounds 04/05/2018 None Full Exam - ENT Abdomen abdominal exam Epigastric: tender to palpation 04/05/2018 None Full Exam - ENT Abdomen abdominal exam Epigastric: dull pain None Full Exam - ENT Abdomen abdominal exam Epigastric: no guarding 04/05/2018 None Full Exam - ENT Abdomen abdominal exam Epigastric: no rebound tenderness 04/05/2018 None Full Exam - ENT Abdomen abdominal exam Epigastric: soft 2017 None Full Exam - ENT Integument inspection of skin Location: back None Full Exam - ENT Integument inspection of skin Rash/Lesions: patch 04/05/2018 None Full Exam - General 1994 Constitutional general appearance Overall: well developed 11/09/2017 None Full Exam - General 1994 Constitutional general appearance Overall: in no acute distress 11/09/2017 None Full Exam - General 1994 Constitutional general appearance Overall: well nourished 11/09/2017 None Full Exam - General 1994 Ears/Nose/Throat lips/teeth/gingiva Overall: benign lips 11/09/2017 None Full Exam - General 1994 Ears/Nose/Throat oral cavity/pharynx/larynx Overall: oral mucosa clear 11/09/2017 None Full Exam - General 1994 Respiratory auscultation Overall: breath sounds clear bilaterally 11/09/2017 None Full Exam - General 1994 Respiratory respiratory effort/rhythm Overall: no retractions 11/09/2017 None Full Exam - General 1994 Respiratory respiratory effort/rhythm Overall: normal rate 11/09/2017 None Full Exam - General 1994 Cardiovascular auscultation of heart Overall: regular rate 11/09/2017 None Full Exam - General 1994 Cardiovascular auscultation of heart Overall: normal heart sounds 11/09/2017 None Full Exam - General 1994 Musculoskeletal head and neck Overall: head atraumatic 11/09/2017 None Full Exam - General 1994 Neurologic cranial nerves Overall: crainial nerves 2 - 12 grossly intact 11/09/2017 None Full Exam - General 1994 Psychiatric orientation/consciousness Overall: oriented to person, place and time 11/09/2017 None Full Exam - General 1994 Psychiatric mood and affect Overall: normal mood and affect 11/09/2017 None Full Exam - General 1994 Psychiatric appearance Overall: well-groomed, good eye contact 11/09/2017 None Full Exam - General 1994 Musculoskeletal lower extremity Inspection - knee: swelling 11/09/2017 None Full Exam - General 1994 Musculoskeletal lower extremity Palpation - knee: crepitus 11/09/2017 tender medial joint line Full Exam - General 1994 Eyes conjunctiva /eyelids Eyelid: edema 11/09/2017 lower eyelid Full Exam - ENT Constitutional general appearance Overall: well nourished 07/03/2017 None Full Exam - ENT Constitutional general appearance Overall: well developed 07/03/2017 None Full Exam - ENT Constitutional general appearance Overall: in no acute distress 07/03/2017 None Full Exam - ENT Ears/Nose/Throat otoscopic exam Overall: external auditory canals normal 07/03/2017 None Full Exam - ENT Ears/Nose/Throat otoscopic exam Left tympanic membrane: air -fluid level 07/03/2017 None Full Exam - ENT Ears/Nose/Throat otoscopic exam Right tympanic membrane: air-fluid level 07/03/2017 None Full Exam - ENT Ears/Nose/Throat lips/ teeth/gingiva Overall: benign lips 07/03/2017 None Full Exam - ENT Ears/Nose/Throat oropharynx Overall: oral mucosa clear 07/03/2017 None Full Exam - ENT Ears/Nose/Throat oropharynx Posterior Pharynx: clear post nasal drainage 07/03/2017 None Full Exam - ENT Ears/Nose/Throat oropharynx Posterior Pharynx: erythema 07/03/2017 None Full Exam - ENT Respiratory inspection Overall: no retractions 07/03/2017 None Full Exam - ENT Respiratory inspection Overall: normal rate None Full Exam - ENT Respiratory auscultation Overall: breath sounds clear bilaterally 07/03/2017 None Full Exam - ENT Cardiovascular auscultation of heart Rate: normal rate 07/03/2017 None Full Exam - ENT Cardiovascular auscultation of heart Rhythm: regular rhythm 07/03/2017 None Full Exam - ENT Lymphatic palpation of lymph nodes Overall: anterior cervical chain benign 07/03/2017 None Full Exam - ENT Lymphatic palpation of lymph nodes Overall: posterior cervical chain benign 07/03/2017 None Full Exam - ENT Neurologic mood and affect Overall: normal mood 07/03/2017 None Full Exam - ENT Neurologic mood and affect Overall: normal affect 07/03/2017 None Full Exam - ENT Neurologic orientation Overall: oriented to person, place and time 07/03/2017 None Full Exam - Cardiology Eyes conjunctiva/ eyelids Overall: conjunctiva clear 03/30/2017 None Full Exam - Cardiology Eyes conjunctiva/ eyelids Overall: eyelids normal 03/30/2017 None Full Exam - Cardiology Respiratory respiratory effort/rhythm Overall: no retractions 03/30/2017 None Full Exam - Cardiology Respiratory respiratory effort/rhythm Overall: normal rate 03/30/2017 None Full Exam - Cardiology Respiratory auscultation Overall: breath sounds clear bilaterally 03/30/2017 None Full Exam - Cardiology Cardiovascular auscultation of heart Overall: regular rate 03/30/2017 None Full Exam - Cardiology Cardiovascular auscultation of heart Overall: normal heart sounds 03/30/2017 None Full Exam - Cardiology Musculoskeletal gait and station Overall: normal gait 03/30/2017 None Full Exam - Cardiology Musculoskeletal gait and station Overall: normal station 03/30/2017 None Full Exam - Cardiology Neurologic cranial nerves CN 1: cranial nerves 2-12 grossly intact 03/30/2017 None Full Exam - Cardiology Psychiatric orientation/consciousness Overall: oriented to person, place and time 03/30/2017 None Full Exam - Cardiology Psychiatric mood and affect Overall: normal mood and affect 03/30/2017 None Full Exam - Cardiology Constitutional general appearance Overall: well nourished 03/30/2017 None Full Exam - Cardiology Constitutional general appearance Overall: well developed 03/30/2017 None Full Exam - Cardiology Constitutional general appearance Overall: in no acute distress 03/30/2017 None Full Exam - ENT Constitutional general appearance Overall: well nourished 01/09/2017 None Full Exam - ENT Constitutional general appearance Overall: well developed 01/09/2017 None Full Exam - ENT Constitutional general appearance Overall: in no acute distress 01/09/2017 None Full Exam - ENT Ears/Nose/Throat otoscopic exam Overall: external auditory canals normal 01/09/2017 None Full Exam - ENT Ears/Nose/Throat otoscopic exam Overall: tympanic membranes normal 01/09/2017 None Full Exam - ENT Ears/Nose/Throat oropharynx Overall: oral mucosa clear 01/09/2017 None Full Exam - ENT Face and Head palpation Overall: no sinus tenderness 01/09/2017 None Full Exam - ENT Respiratory inspection Overall: no retractions 01/09/2017 None Full Exam - ENT Respiratory inspection Overall: normal rate 06/2016 None Full Exam - ENT Respiratory auscultation Overall: breath sounds clear bilaterally 01/09/2017 None Full Exam - ENT Cardiovascular auscultation of heart Overall: regular rate 01/09/2017 None Full Exam - ENT Cardiovascular auscultation of heart Overall: normal heart sounds 01/09/2017 None Full Exam - ENT Integument inspection of skin Overall: no rash, lesions 01/09/2017 None Full Exam - ENT Neurologic orientation Overall: oriented to person, place and time 01/09/2017 None Full Exam - ENT Ears/Nose/Throat oropharynx Posterior Pharynx: erythema 01/09/2017 None Full Exam - ENT Lymphatic palpation of lymph nodes Overall: shotty lymphadenopathy 01/09/2017 None Full Exam - Orthopedics Constitutional general appearance Overall: well nourished 12/20/2016 None Full Exam - Orthopedics Constitutional general appearance Overall: well developed 12/20/2016 None Full Exam - Orthopedics Constitutional general appearance Overall: in no acute distress 12/20/2016 None Full Exam - Orthopedics Eyes conjunctiva/ eyelids Overall: conjunctiva clear 12/20/2016 None Full Exam - Orthopedics Eyes conjunctiva/ eyelids Overall: eyelids normal 12/20/2016 None Full Exam - Orthopedics Ears/Nose/Throat lips/teeth/gingiva Overall: benign lips 12/20/2016 None Full Exam - Orthopedics Ears/Nose/Throat oral cavity/pharynx/larynx Overall: oral mucosa clear 12/20/2016 None Full Exam - Orthopedics Respiratory auscultation Overall: breath sounds clear bilaterally 12/20/2016 None Full Exam - Orthopedics Respiratory respiratory effort/rhythm Overall: no retractions 12/20/2016 None Full Exam - Orthopedics Respiratory respiratory effort/rhythm Overall: normal rate 12/20/2016 None Full Exam - Orthopedics MS: right lower extremity insp & palp - RLE Knee: crepitus 12/20/2016 None Full Exam - Orthopedics MS: right lower extremity range of motion - RLE Knee: pain with flexion 12/20/2016 None Full Exam - Orthopedics MS: right lower extremity range of motion - RLE Knee: pain with extension 12/20/2016 None Full Exam - Orthopedics Psychiatric orientation/consciousness Overall: oriented to person, place and time 12/20/2016 None Full Exam - Orthopedics Psychiatric mood and affect Overall: normal mood and affect 12/20/2016 None Full Exam - Orthopedics Psychiatric appearance Overall: well-groomed, good eye contact 12/20/2016 None Full Exam - Orthopedics Constitutional general appearance Overall: well nourished 12/08/2016 None Full Exam - Orthopedics Constitutional general appearance Overall: well developed 12/08/2016 None Full Exam - Orthopedics Constitutional general appearance Overall: in no acute distress 12/08/2016 None Full Exam - Orthopedics Eyes conjunctiva/ eyelids Overall: conjunctiva clear 12/08/2016 None Full Exam - Orthopedics Eyes conjunctiva/ eyelids Overall: eyelids normal 12/08/2016 None Full Exam - Orthopedics Ears/Nose/Throat lips/teeth/gingiva Overall: benign lips 12/08/2016 None Full Exam - Orthopedics Ears/Nose/Throat oral cavity/pharynx/larynx Overall: oral mucosa clear 12/08/2016 None Full Exam - Orthopedics Respiratory auscultation Overall: breath sounds clear bilaterally 12/08/2016 None Full Exam - Orthopedics Respiratory respiratory effort/rhythm Overall: no retractions 12/08/2016 None Full Exam - Orthopedics Respiratory respiratory effort/rhythm Overall: normal rate 12/08/2016 None Full Exam - Orthopedics MS: right lower extremity insp & palp - RLE Knee: crepitus 12/08/2016 None Full Exam - Orthopedics MS: right lower extremity range of motion - RLE Knee: pain with flexion 12/08/2016 None Full Exam - Orthopedics MS: right lower extremity range of motion - RLE Knee: pain with extension 12/08/2016 None Full Exam - Orthopedics Psychiatric orientation/consciousness Overall: oriented to person, place and time 12/08/2016 None Full Exam - Orthopedics Psychiatric mood and affect Overall: normal mood and affect 12/08/2016 None Full Exam - Orthopedics Psychiatric appearance Overall: well-groomed, good eye contact 12/08/2016 None Full Exam - Cardiology Eyes conjunctiva/ eyelids Overall: conjunctiva clear 11/30/2016 None Full Exam - Cardiology Eyes conjunctiva/ eyelids Overall: eyelids normal 11/30/2016 None Full Exam - Cardiology Respiratory respiratory effort/rhythm Overall: no retractions 11/30/2016 None Full Exam - Cardiology Respiratory respiratory effort/rhythm Overall: normal rate 11/30/2016 None Full Exam - Cardiology Respiratory auscultation Overall: breath sounds clear bilaterally 11/30/2016 None Full Exam - Cardiology Cardiovascular auscultation of heart Overall: regular rate 11/30/2016 None Full Exam - Cardiology Cardiovascular auscultation of heart Overall: normal heart sounds 11/30/2016 None Full Exam - Cardiology Musculoskeletal gait and station Overall: normal gait 11/30/2016 None Full Exam - Cardiology Musculoskeletal gait and station Overall: normal station 11/30/2016 None Full Exam - Cardiology Neurologic cranial nerves CN 1: cranial nerves 2-12 grossly intact 11/30/2016 None Full Exam - Cardiology Psychiatric orientation/consciousness Overall: oriented to person, place and time 11/30/2016 None Full Exam - Cardiology Psychiatric mood and affect Overall: normal mood and affect 11/30/2016 None Full Exam - Cardiology Constitutional general appearance Overall: well nourished 11/30/2016 None Full Exam - Cardiology Constitutional general appearance Overall: well developed 11/30/2016 None Full Exam - Cardiology Constitutional general appearance Overall: in no acute distress 11/30/2016 None Full Exam - General 1994 Constitutional general appearance Overall: well developed 11/01/2016 None Full Exam - General 1994 Constitutional general appearance Overall: in no acute distress 11/01/2016 None Full Exam - General 1994 Constitutional general appearance Overall: well nourished 11/01/2016 None Full Exam - General 1994 Eyes conjunctiva /eyelids Overall: conjunctiva clear 11/01/2016 None Full Exam - General 1994 Eyes conjunctiva /eyelids Overall: eyelids normal 11/01/2016 None Full Exam - General 1994 Ears/Nose/Throat lips/teeth/gingiva Overall: benign lips 11/01/2016 None Full Exam - General 1994 Ears/Nose/Throat oral cavity/pharynx/larynx Overall: oral mucosa clear 11/01/2016 None Full Exam - General 1994 Respiratory auscultation Overall: breath sounds clear bilaterally 11/01/2016 None Full Exam - General 1994 Respiratory respiratory effort/rhythm Overall: no retractions 11/01/2016 None Full Exam - General 1994 Respiratory respiratory effort/rhythm Overall: normal rate 11/01/2016 None Full Exam - General 1994 Cardiovascular auscultation of heart Overall: regular rate 11/01/2016 None Full Exam - General 1994 Cardiovascular auscultation of heart Overall: normal heart sounds 11/01/2016 None Full Exam - General 1994 Musculoskeletal head and neck Overall: head atraumatic 11/01/2016 None Full Exam - General 1994 Psychiatric orientation/consciousness Overall: oriented to person, place and time 11/01/2016 None Full Exam - General 1994 Psychiatric mood and affect Overall: normal mood and affect 11/01/2016 None Full Exam - General 1994 Psychiatric appearance Overall: well-groomed, good eye contact 11/01/2016 None Full Exam - General 1994 Neurologic cranial nerves Overall: crainial nerves 2 - 12 grossly intact 11/01/2016 None Full Exam - General 1994 Constitutional general appearance Overall: well developed 10/18/2016 None Full Exam - General 1994 Constitutional general appearance Overall: in no acute distress 10/18/2016 None Full Exam - General 1994 Constitutional general appearance Overall: well nourished 10/18/2016 None Full Exam - General 1994 Eyes conjunctiva /eyelids Overall: conjunctiva clear 10/18/2016 None Full Exam - General 1994 Eyes conjunctiva /eyelids Overall: eyelids normal 10/18/2016 None Full Exam - General 1994 Ears/Nose/Throat lips/teeth/gingiva Overall: benign lips 10/18/2016 None Full Exam - General 1994 Ears/Nose/Throat oral cavity/pharynx/larynx Overall: oral mucosa clear 10/18/2016 None Full Exam - General 1994 Ears/Nose/Throat oral cavity/pharynx/larynx Overall: oropharyngeal mucosa clear 10/18/2016 None Full Exam - General 1994 Ears/Nose/Throat otoscopic exam Overall: external auditory canals clear 10/18/2016 None Full Exam - General 1994 Ears/Nose/Throat otoscopic exam Overall: tympanic membranes clear 10/18/2016 None Full Exam - General 1994 Respiratory respiratory effort/rhythm Overall: no retractions 10/18/2016 None Full Exam - General 1994 Respiratory respiratory effort/rhythm Overall: normal rate 10/18/2016 None Full Exam - General 1994 Respiratory auscultation Overall: breath sounds clear bilaterally 10/18/2016 None Full Exam - General 1994 Cardiovascular auscultation of heart Overall: regular rate 10/18/2016 None Full Exam - General 1994 Cardiovascular auscultation of heart Overall: normal heart sounds 10/18/2016 None Full Exam - General 1994 Musculoskeletal head and neck Overall: head atraumatic 10/18/2016 None Full Exam - General 1994 Integument inspection of skin Overall: no rash, lesions 10/18/2016 None Full Exam - General 1994 Neurologic cranial nerves Overall: crainial nerves 2 - 12 grossly intact 10/18/2016 None Full Exam - General 1994 Psychiatric orientation/consciousness Overall: oriented to person, place and time 10/18/2016 None Full Exam - General 1994 Psychiatric mood and affect Overall: normal mood and affect 10/18/2016 None Full Exam - General 1994 Psychiatric appearance Overall: well-groomed, good eye contact 10/18/2016 None Full Exam - General 1994 Constitutional general appearance Overall: well developed 09/29/2016 None Full Exam - General 1994 Constitutional general appearance Overall: in no acute distress 09/29/2016 None Full Exam - General 1994 Constitutional general appearance Overall: well nourished 09/29/2016 None Full Exam - General 1994 Eyes conjunctiva /eyelids Overall: conjunctiva clear 09/29/2016 None Full Exam - General 1994 Eyes pupils and irises Overall: pupils equal, round, reactive to light and accomodation 09/29/2016 None Full Exam - General 1994 Ears/Nose/Throat otoscopic exam Overall: external auditory canals clear 09/29/2016 None Full Exam - General 1994 Ears/Nose/Throat otoscopic exam Overall: tympanic membranes clear 09/29/2016 None Full Exam - General 1994 Ears/Nose/Throat oral cavity/pharynx/larynx Overall: oral mucosa clear 09/29/2016 None Full Exam - General 1994 Respiratory auscultation Overall: breath sounds clear bilaterally 09/29/2016 None Full Exam - General 1994 Respiratory respiratory effort/rhythm Overall: no retractions 09/29/2016 None Full Exam - General 1994 Respiratory respiratory effort/rhythm Overall: normal rate 09/29/2016 None Full Exam - General 1994 Cardiovascular auscultation of heart Overall: regular rate 09/29/2016 None Full Exam - General 1994 Cardiovascular auscultation of heart Overall: normal heart sounds 09/29/2016 None Full Exam - General 1994 Cardiovascular auscultation of heart Overall: no murmurs 09/29/2016 None Full Exam - General 1994 Abdomen abdominal exam Overall: no tenderness 09/29/2016 None Full Exam - General 1994 Abdomen abdominal exam Overall: normal bowel sounds 09/29/2016 None Full Exam - General 1994 Musculoskeletal digits and nails Overall: no clubbing 09/29/2016 None Full Exam - General 1994 Musculoskeletal digits and nails Overall: digits benign 09/29/2016 None Full Exam - General 1994 Neurologic cranial nerves Overall: crainial nerves 2 - 12 grossly intact 09/29/2016 None Full Exam - General 1994 Psychiatric orientation/consciousness Overall: oriented to person, place and time 09/29/2016 None Full Exam - ENT Constitutional general appearance Overall: well nourished 06/13/2016 None Full Exam - ENT Constitutional general appearance Overall: well developed 06/13/2016 None Full Exam - ENT Constitutional general appearance Overall: in no acute distress 06/13/2016 None Full Exam - ENT Neurologic orientation Overall: oriented to person, place and time 06/13/2016 None Full Exam - ENT Integument inspection of skin Overall: no rash, lesions 06/13/2016 None Full Exam - ENT Lymphatic palpation of lymph nodes Overall: anterior cervical chain benign 06/13/2016 None Full Exam - ENT Lymphatic palpation of lymph nodes Overall: posterior cervical chain benign 06/13/2016 None Full Exam - ENT Cardiovascular auscultation of heart Overall: regular rate 06/13/2016 None Full Exam - ENT Cardiovascular auscultation of heart Overall: normal heart sounds 06/13/2016 None Full Exam - ENT Respiratory auscultation Overall: breath sounds clear bilaterally 06/13/2016 None Full Exam - ENT Respiratory inspection Overall: no retractions 06/13/2016 None Full Exam - ENT Respiratory inspection Overall: normal rate 08/2016 None Full Exam - ENT Face and Head palpation Overall: no sinus tenderness 06/13/2016 None Full Exam - ENT Ears/Nose/Throat otoscopic exam Overall: external auditory canals normal 06/13/2016 None Full Exam - ENT Ears/Nose/Throat otoscopic exam Overall: tympanic membranes normal 06/13/2016 None Full Exam - ENT Ears/Nose/Throat oropharynx Overall: oral mucosa clear 06/13/2016 None Full Exam - General 1994 Constitutional general appearance Overall: well developed 12/14/2015 None Full Exam - General 1994 Constitutional general appearance Overall: in no acute distress 12/14/2015 None Full Exam - General 1994 Constitutional general appearance Overall: well nourished 12/14/2015 None Full Exam - General 1994 Eyes conjunctiva /eyelids Overall: conjunctiva clear 12/14/2015 None Full Exam - General 1994 Eyes pupils and irises Overall: pupils equal, round, reactive to light and accomodation 12/14/2015 None Full Exam - General 1994 Ears/Nose/Throat otoscopic exam Overall: external auditory canals clear 12/14/2015 None Full Exam - General 1994 Ears/Nose/Throat otoscopic exam Overall: tympanic membranes clear 12/14/2015 None Full Exam - General 1994 Ears/Nose/Throat oral cavity/pharynx/larynx Overall: oral mucosa clear 12/14/2015 None Full Exam - General 1994 Respiratory auscultation Overall: breath sounds clear bilaterally 12/14/2015 None Full Exam - General 1994 Respiratory respiratory effort/rhythm Overall: no retractions 12/14/2015 None Full Exam - General 1994 Respiratory respiratory effort/rhythm Overall: normal rate 12/14/2015 None Full Exam - General 1994 Cardiovascular extremities Edema present: pitting 12/14/2015 None Full Exam - General 1994 Cardiovascular extremities Edema present: severity 1+ - 4 +: trace 12/14/2015 None Full Exam - General 1994 Cardiovascular extremities Edema present: bilateral 12/14/2015 None Full Exam - General 1994 Cardiovascular auscultation of heart Overall: regular rate 12/14/2015 None Full Exam - General 1994 Cardiovascular auscultation of heart Overall: normal heart sounds 12/14/2015 None Full Exam - General 1994 Cardiovascular auscultation of heart Overall: no murmurs 12/14/2015 None Full Exam - General 1994 Abdomen abdominal exam Overall: no tenderness 12/14/2015 None Full Exam - General 1994 Abdomen abdominal exam Overall: normal bowel sounds 12/14/2015 None Full Exam - General 1994 Musculoskeletal digits and nails Overall: no clubbing 12/14/2015 None Full Exam - General 1994 Musculoskeletal digits and nails Overall: digits benign 12/14/2015 None Full Exam - General 1994 Neurologic cranial nerves Overall: crainial nerves 2 - 12 grossly intact 12/14/2015 None Full Exam - General 1994 Psychiatric orientation/consciousness Overall: oriented to person, place and time 12/14/2015 None Full Exam - General 1994 Integument inspection of skin Location: left leg 12/14/2015 None Full Exam - General 1994 Integument inspection of skin Location: right leg 12/14/2015 AK left and right posterior calf Full Exam - General 1994 Constitutional general appearance Overall: well developed 07/12/2015 None Full Exam - General 1994 Constitutional general appearance Overall: in no acute distress 07/12/2015 None Full Exam - General 1994 Constitutional general appearance Overall: well nourished 07/12/2015 None Full Exam - General 1994 Eyes conjunctiva /eyelids Overall: conjunctiva clear 07/12/2015 None Full Exam - General 1994 Eyes pupils and irises Overall: pupils equal, round, reactive to light and accomodation 07/12/2015 None Full Exam - General 1994 Ears/Nose/Throat otoscopic exam Overall: external auditory canals clear 07/12/2015 None Full Exam - General 1994 Ears/Nose/Throat otoscopic exam Overall: tympanic membranes clear 07/12/2015 None Full Exam - General 1994 Ears/Nose/Throat oral cavity/pharynx/larynx Overall: oral mucosa clear 07/12/2015 None Full Exam - General 1994 Respiratory auscultation Overall: breath sounds clear bilaterally 07/12/2015 None Full Exam - General 1994 Respiratory respiratory effort/rhythm Overall: no retractions 07/12/2015 None Full Exam - General 1994 Respiratory respiratory effort/rhythm Overall: normal rate 07/12/2015 None Full Exam - General 1994 Cardiovascular extremities Edema present: pitting 07/12/2015 None Full Exam - General 1994 Cardiovascular extremities Edema present: severity 1+ - 4 +: trace 07/12/2015 None Full Exam - General 1994 Cardiovascular extremities Edema present: bilateral 07/12/2015 None Full Exam - General 1994 Cardiovascular auscultation of heart Overall: regular rate 07/12/2015 None Full Exam - General 1994 Cardiovascular auscultation of heart Overall: normal heart sounds 07/12/2015 None Full Exam - General 1994 Cardiovascular auscultation of heart Overall: no murmurs 07/12/2015 None Full Exam - General 1994 Abdomen abdominal exam Overall: no tenderness 07/12/2015 None Full Exam - General 1994 Abdomen abdominal exam Overall: normal bowel sounds 07/12/2015 None Full Exam - General 1994 Musculoskeletal digits and nails Overall: no clubbing 07/12/2015 None Full Exam - General 1994 Musculoskeletal digits and nails Overall: digits benign 07/12/2015 None Full Exam - General 1994 Integument inspection of skin Overall: no rash, lesions 07/12/2015 None Full Exam - General 1994 Neurologic cranial nerves Overall: crainial nerves 2 - 12 grossly intact 07/12/2015 None Full Exam - General 1994 Psychiatric orientation/consciousness Overall: oriented to person, place and time 07/12/2015 None Full Exam - General 1994 Psychiatric orientation/consciousness Overall: oriented to person, place and time 01/11/2015 None Full Exam - General 1994 Neurologic cranial nerves Overall: crainial nerves 2 - 12 grossly intact 01/11/2015 None Full Exam - General 1994 Integument inspection of skin Overall: no rash, lesions 01/11/2015 None Full Exam - General 1994 Musculoskeletal digits and nails Overall: digits benign 01/11/2015 None Full Exam - General 1994 Musculoskeletal digits and nails Overall: no clubbing 01/11/2015 None Full Exam - General 1994 Abdomen abdominal exam Overall: no tenderness 01/11/2015 None Full Exam - General 1994 Abdomen abdominal exam Overall: normal bowel sounds 01/11/2015 None Full Exam - General 1994 Cardiovascular auscultation of heart Overall: regular rate 01/11/2015 None Full Exam - General 1994 Cardiovascular auscultation of heart Overall: normal heart sounds 01/11/2015 None Full Exam - General 1994 Cardiovascular auscultation of heart Overall: no murmurs 01/11/2015 None Full Exam - General 1994 Cardiovascular extremities Edema present: pitting 01/11/2015 None Full Exam - General 1994 Cardiovascular extremities Edema present: bilateral 01/11/2015 None Full Exam - General 1994 Cardiovascular extremities Edema present: severity 1+ - 4 +: trace 01/11/2015 None Full Exam - General 1994 Respiratory auscultation Overall: breath sounds clear bilaterally 01/11/2015 None Full Exam - General 1994 Respiratory respiratory effort/rhythm Overall: no retractions 01/11/2015 None Full Exam - General 1994 Respiratory respiratory effort/rhythm Overall: normal rate 01/11/2015 None Full Exam - General 1994 Ears/Nose/Throat otoscopic exam Overall: tympanic membranes clear 01/11/2015 None Full Exam - General 1994 Ears/Nose/Throat otoscopic exam Overall: external auditory canals clear 01/11/2015 None Full Exam - General 1994 Ears/Nose/Throat oral cavity/pharynx/larynx Overall: oral mucosa clear 01/11/2015 None Full Exam - General 1994 Constitutional general appearance Overall: well developed 01/11/2015 None Full Exam - General 1994 Constitutional general appearance Overall: in no acute distress 01/11/2015 None Full Exam - General 1994 Constitutional general appearance Overall: well nourished 01/11/2015 None Full Exam - General 1994 Eyes conjunctiva /eyelids Overall: conjunctiva clear 01/11/2015 None Full Exam - General 1994 Eyes pupils and irises Overall: pupils equal, round, reactive to light and accomodation 01/11/2015 None Procedures Procedure Codes Date ROCEPHIN, PER 250 MG CPT-4: J0696 01/09/2017 TRIAMCINOLONE ACET INJ NOS CPT-4: J3301 06/13/2016 DESTRUCT PREMALG LESION CPT-4: 08896 12/14/2015 Vital Signs Date Vital 04/05/2018 Blood Pressure 1: 140/66 Code : 8480-6 BMI: 38.1 Code : 38311-2 Heart Rate 1 : 73 bpm Height: 5'7" SpO2: 98% Weight: 243 lbs 11/09/2017 Blood Pressure 1: 118/70 Code : 8480-6 BMI: 37.6 Code : 90439-0 Heart Rate 1 : 78 bpm Height: 5'7" SpO2: 99% Weight: 240 lbs 07/03/2017 Blood Pressure 1: 130/72 Code : 8480-6 BMI: 38.1 Code : 14220-0 Heart Rate 1 : 78 bpm Height: 5'7" SpO2: 97% Temperature: 36.3 (C) / 97.4 (F) Weight: 243 lbs 03/30/2017 Blood Pressure 1: 124/74 Code : 8480-6 BMI: 38.5 Code : 50952-4 Heart Rate 1 : 80 bpm Height: 5'7" SpO2: 97% Weight: 246 lbs 01/09/2017 Blood Pressure 1: 148/80 Code : 8480-6 BMI: 38.7 Code : 82124-6 Heart Rate 1 : 80 bpm Height: 5'7" SpO2: 97% Weight: 247 lbs 12/20/2016 Blood Pressure 1: 136/74 Code : 8480-6 Heart Rate 1: 78 bpm Height: SpO2: 98% Weight: 12/08/2016 Blood Pressure 1: 136/82 Code : 8480-6 BMI: 39.0 Code : 99625-2 Heart Rate 1 : 75 bpm Height: 5'7" SpO2: 97% Weight: 249 lbs 11/30/2016 Blood Pressure 1: 150/82 Code : 8480-6 BMI: 39.0 Code : 27076-0 Heart Rate 1 : 75 bpm Height: 5'7" SpO2: 98% Weight: 249 lbs 11/01/2016 Blood Pressure 1: 136/80 Code : 8480-6 BMI: 39.8 Code : 81792-8 Heart Rate 1 : 79 bpm Height: 5'7" SpO2: 98% Weight: 254 lbs 10/18/2016 Blood Pressure 1: 142/80 Code : 8480-6 BMI: 39.0 Code : 12541-1 Heart Rate 1 : 74 bpm Height: 5'7" SpO2: 97% Weight: 249 lbs 09/29/2016 Blood Pressure 1: 136/76 Code : 8480-6 BMI: 39.2 Code : 65412-8 Heart Rate 1 : 70 bpm Height: 5'7" SpO2: 96% Weight: 250 lbs 06/13/2016 Blood Pressure 1: 178/82 Code : 8480-6 Blood Pressure 1: 152/72 Code: 8480-6 BMI: 37.7 Code: 36643-1 Heart Rate 1: 108 bpm Height: 5'7" SpO2: 97% Weight: 241 lbs 12/14/2015 Blood Pressure 1: 136/80 Code : 8480-6 BMI: 38.4 Code : 54052-9 Heart Rate 1 : 97 bpm Height: 5'7" SpO2: 98% Weight: 245 lbs 07/12/2015 Blood Pressure 1: 138/78 Code : 8480-6 Blood Pressure 1: 160/68 Code: 8480-6 BMI: 38.4 Code: 48203-9 Heart Rate 1: 96 bpm Height: 5'7" SpO2: 98% Weight: 245 lbs 01/11/2015 Blood Pressure 1: 132/84 Code : 8480-6 BMI: 39.2 Code : 28114-9 Heart Rate 1 : 86 bpm Height: 5'7" SpO2: 98% Weight: 250 lbs Functional Status No Functional Status data History of Present Illness Symptom Name Status Result Effective Date Notes gastroesophageal reflux Quality constant 04/05/2018 None gastroesophageal reflux Onset and Resolution sudden in onset 04/05/2018 None gastroesophageal reflux Onset of Symptom 2 weeks ago 04/05/2018 None shortness of breath Quality breathlessness 04/05/2018 None shortness of breath Quality chest tightness 04/05/2018 None shortness of breath Onset and Resolution sudden in onset 04/05/2018 None shortness of breath Onset of Symptom 2 weeks ago 04/05/2018 None shortness of breath Pertinent Findings chest discomfort 04/05/2018 None shortness of breath Pertinent Findings cough 04/05/2018 None shortness of breath Pertinent Findings increased work of breathing 04/05/2018 None shortness of breath Pertinent Findings sputum production 04/05/2018 None rash Location-Major on the back 04/05/2018 None eyelid edema Location on the left eyelid 11/09/2017 None eyelid edema Quality acute 11/09/2017 None eyelid edema Onset and Resolution sudden in onset 11/09/2017 None eyelid edema Quality worsening 11/09/2017 None eyelid edema Onset of Symptom 3-4 days ago 11/09/2017 None eyelid edema Frequency of Episodes daily 11/09/2017 None eyelid edema Pertinent Findings Denies eye discharge 11/09/2017 None knee pain Location on the right 11/09/2017 None knee pain Location in the medial region 11/09/2017 None knee pain Quality chronic 11/09/2017 None knee pain Quality intermittent 11/09/2017 None knee pain Quality worsening 11/09/2017 None knee pain Limitation on Activities allows weight bearing activity 11/09/2017 None knee pain Limitation on Activities moderately limits activities 11/09/2017 None cough Quality acute None cough Quality intermittent 07/03/2017 None cough Quality productive 07/03/2017 None cough Onset and Resolution sudden in onset 07/03/2017 None cough Onset and Resolution ongoing 07/03/2017 None cough Quality worsening 07/03/2017 None cough Onset of Symptom 4-5 days ago 07/03/2017 None cough Frequency of Episodes daily 07/03/2017 None cough Pertinent Findings fever 07/03/2017 last night per patient report cough Pertinent Findings nasal congestion 07/03/2017 None cough Pertinent Findings post nasal drip 07/03/2017 (clear) cough Pertinent Findings sputum production 07/03/2017 (green) sore throat Quality acute 07/03/2017 None sore throat Onset and Resolution sudden in onset 07/03/2017 None sore throat Onset and Resolution ongoing 07/03/2017 None sore throat Onset of Symptom 4-5 days ago 07/03/2017 None sore throat Pertinent Findings cough 07/03/2017 None sore throat Pertinent Findings nasal congestion 07/03/2017 None hypertension Quality chronic 03/30/2017 None hypertension Onset and Resolution ongoing 03/30/2017 None hypertension Blood Pressure Values Stage 1:SBP 140-159 mmHg / DBP 90-99 mmHg 03/30/2017 None hypertension Severity not consistently severe symptoms, the symptoms fluctuate from no symptoms to anxiety and headaches 03/30/2017 None hypertension Triggers stress 03/30/2017 None hypertension Alleviating Factors medication 03/30/2017 None hypertension Exacerbating Factors change in dietary habits 03/30/2017 None hypertension Exacerbating Factors stress 03/30/2017 None hypertension Pertinent Findings Denies dyspnea 03/30/2017 None hypertension Onset of Symptom during adulthood 03/30/2017 None hypertension Severity mild 03/30/2017 None hypertension Significant Family History heart disease 03/30/2017 None hypertension Significant Medical Conditions cardiac disease 03/30/2017 None hypertension Pertinent Findings Denies decreased energy 03/30/2017 None hypertension Pertinent Findings dizziness 03/30/2017 None hypertension Pertinent Findings Denies edema 03/30/2017 None diabetes mellitus Quality non-insulin dependent 03/30/2017 None diabetes mellitus Significant Medications glucagon 03/30/2017 None diabetes mellitus Alleviating Factors medication 03/30/2017 None diabetes mellitus Pertinent Findings dizziness 03/30/2017 None diabetes mellitus Pertinent Findings Denies dyspnea 03/30/2017 None diabetes mellitus Pertinent Findings Denies lethargy 03/30/2017 None diabetes mellitus Pertinent Findings Denies numbness 03/30/2017 None diabetes mellitus Pertinent Findings Denies tingling 03/30/2017 None diabetes mellitus Pertinent Findings Denies vomiting 03/30/2017 None diabetes mellitus Onset of Symptom onset as an adult 03/30/2017 None hyperlipidemia Onset of Symptom during adulthood 03/30/2017 None hyperlipidemia Severity moderate 03/30/2017 None hyperlipidemia Frequency of Episodes unchanged 03/30/2017 None hyperlipidemia Alleviating Factors medication 03/30/2017 None hyperlipidemia Pertinent Findings Denies edema 03/30/2017 None hyperlipidemia Pertinent Findings Denies nausea 03/30/2017 None diabetes mellitus Test results Pt checking blood glucose at home, see scanned readings 2016 None diabetes mellitus Glucose monitoring daily 03/30/2017 None diabetes mellitus Nutrition regular diet 03/30/2017 None diabetes mellitus Exercise minimal exercise 03/30/2017 None earache Location both ears 01/09/2017 None earache Location left ear 01/09/2017 None earache Quality acute 01/09/2017 None earache Onset and Resolution sudden in onset 01/09/2017 None earache Onset of Symptom 4 days ago 01/09/2017 None earache Severity moderate 01/09/2017 None earache Triggers no known triggers 01/09/2017 None sore throat Location diffusely 01/09/2017 None sore throat Quality aching 01/09/2017 None sore throat Onset and Resolution sudden in onset 01/09/2017 None sore throat Onset of Symptom 3 days ago 01/09/2017 None sore throat Pertinent Findings cough 01/09/2017 None sore throat Pertinent Findings decreased energy level 01/09/2017 None sore throat Pertinent Findings Denies fever 01/09/2017 None sore throat Pertinent Findings nasal congestion 01/09/2017 None knee pain Location on the right 12/20/2016 None knee pain Alleviating Factors rest 12/20/2016 None knee pain Pertinent Findings pain with movement 12/20/2016 None knee pain Pertinent Findings Denies redness 12/20/2016 None knee pain Pertinent Findings Denies warmth 12/20/2016 None knee pain Quality popping 12/20/2016 None knee pain Quality worsening 12/20/2016 None knee pain Severity severe 12/20/2016 None knee pain Limitation on Activities restricts weight bearing activity 12/20/2016 None knee pain Limitation on Activities moderately limits activities 12/20/2016 None knee pain Limitation on Activities unable to perform any activities without pain 12/20/2016 None knee pain Exacerbating Factors exertion 12/20/2016 None knee pain Exacerbating Factors weight bearing 12/20/2016 None knee pain Location on the right 12/08/2016 None knee pain Alleviating Factors rest 12/08/2016 None knee pain Pertinent Findings Denies warmth 12/08/2016 None knee pain Pertinent Findings pain with movement 12/08/2016 None knee pain Pertinent Findings Denies redness 12/08/2016 None knee pain Severity moderate 12/08/2016 None hypertension Quality chronic 11/30/2016 None hypertension Onset and Resolution ongoing 11/30/2016 None hypertension Blood Pressure Values Stage 1:SBP 140-159 mmHg / DBP 90-99 mmHg 11/30/2016 None hypertension Severity not consistently severe symptoms, the symptoms fluctuate from no symptoms to anxiety and headaches 11/30/2016 None hypertension Triggers stress 11/30/2016 None hypertension Alleviating Factors medication 11/30/2016 None hypertension Exacerbating Factors stress 11/30/2016 None hypertension Exacerbating Factors change in dietary habits 11/30/2016 None hypertension Pertinent Findings Denies dyspnea 11/30/2016 None medication follow up Additional Comments medication use 11/01/2016 None medication follow up Location oral intake 11/01/2016 None hypertension Quality chronic 11/01/2016 None hypertension Onset and Resolution ongoing 11/01/2016 None hypertension Blood Pressure Values Stage 1:SBP 140-159 mmHg / DBP 90-99 mmHg 11/01/2016 None hypertension Pertinent Findings Denies dyspnea 11/01/2016 None hypertension Quality constant 10/18/2016 None hypertension Onset and Resolution sudden in onset 10/18/2016 None hypertension Onset of Symptom 2 days ago 10/18/2016 None anxiety Quality improving 09/29/2016 she has learned how to control it a little better- reports has a stressful job anxiety Quality stable 09/29/2016 None anxiety Onset and Resolution ongoing 09/29/2016 None anxiety Onset of Symptom during adulthood 09/29/2016 None anxiety Frequency of Episodes unchanged 09/29/2016 None anxiety Significant Family History anxiety disorder 09/29/2016 None anxiety Triggers stress 09/29/2016 stressful job at [facility] [employer] anxiety Alleviating Factors medication 09/29/2016 decreased cymbalta to 30mg and that helps hypertension Quality chronic 09/29/2016 None hypertension Onset and Resolution ongoing 09/29/2016 does not take regularly hypertension Onset of Symptom during adulthood 09/29/2016 None hypertension Severity mild 09/29/2016 None hypertension Significant Family History heart disease 09/29/2016 None hypertension Significant Medical Conditions cardiac disease 09/29/2016 None hypertension Pertinent Findings dizziness 09/29/2016 None diabetes mellitus Quality non-insulin dependent 09/29/2016 None diabetes mellitus Significant Medications glucagon 09/29/2016 None diabetes mellitus Alleviating Factors medication 09/29/2016 None diabetes mellitus Pertinent Findings dizziness 09/29/2016 None diabetes mellitus Pertinent Findings Denies vomiting 09/29/2016 None diabetes mellitus Onset of Symptom onset as an adult 09/29/2016 None hyperlipidemia Onset of Symptom during adulthood 09/29/2016 None hyperlipidemia Severity moderate 09/29/2016 None hyperlipidemia Frequency of Episodes unchanged 09/29/2016 None hyperlipidemia Alleviating Factors medication 09/29/2016 None hypertension Pertinent Findings Denies dyspnea 09/29/2016 None hypertension Pertinent Findings Denies edema 09/29/2016 None hypertension Pertinent Findings Denies decreased energy 09/29/2016 None diabetes mellitus Test results Pt checking blood glucose readings, did not bring results to clinic 09/29/2016 135 this AM diabetes mellitus Glucose monitoring occasional glucose testing 09/29/2016 None diabetes mellitus Pertinent Findings Denies dyspnea 09/29/2016 None diabetes mellitus Pertinent Findings Denies lethargy 09/29/2016 None diabetes mellitus Pertinent Findings Denies numbness 09/29/2016 None diabetes mellitus Pertinent Findings Denies tingling 09/29/2016 None hyperlipidemia Pertinent Findings Denies nausea 09/29/2016 None hyperlipidemia Pertinent Findings Denies edema 09/29/2016 None sinus congestion Onset and Resolution sudden in onset 06/13/2016 None sinus congestion Onset of Symptom 4 days ago 06/13/2016 None sinus congestion Pertinent Findings cough 06/13/2016 None sinus congestion Location on both sides 06/13/2016 None sinus congestion Quality constant 06/13/2016 None sinus congestion Quality fullness 06/13/2016 None sinus congestion Quality pressure 06/13/2016 None sinus congestion Pertinent Findings fever 06/13/2016 None sinus congestion Pertinent Findings hoarseness 06/13/2016 None sinus congestion Severity moderate 06/13/2016 None sinus congestion Frequency of Episodes increasing 06/13/2016 None sinus congestion Significant Medical Conditions allergic rhinitis 06/13/2016 None sinus congestion Triggers no known associated factors 06/13/2016 None anxiety Quality improving 12/14/2015 she has learned how to control it a little better- reports has a stressful job anxiety Quality stable 12/14/2015 None anxiety Onset and Resolution ongoing 12/14/2015 None anxiety Onset of Symptom during adulthood 12/14/2015 None anxiety Frequency of Episodes unchanged 12/14/2015 None anxiety Significant Family History anxiety disorder 12/14/2015 None anxiety Triggers stress 12/14/2015 stressful job at [facility] [employer] anxiety Alleviating Factors medication 12/14/2015 decreased cymbalta to 30mg and that helps hypertension Quality chronic 12/14/2015 None hypertension Onset and Resolution ongoing 12/14/2015 does not take regularly hypertension Onset of Symptom during adulthood 12/14/2015 None hypertension Severity mild 12/14/2015 None hypertension Significant Family History heart disease 12/14/2015 None hypertension Significant Medical Conditions cardiac disease 12/14/2015 None hypertension Pertinent Findings Denies dizziness 12/14/2015 None diabetes mellitus Quality non-insulin dependent 12/14/2015 None diabetes mellitus Significant Medications glucagon 12/14/2015 None diabetes mellitus Alleviating Factors medication 12/14/2015 None diabetes mellitus Pertinent Findings Denies dizziness 12/14/2015 None diabetes mellitus Pertinent Findings Denies vomiting 12/14/2015 None diabetes mellitus Onset of Symptom onset as an adult 12/14/2015 None hyperlipidemia Onset of Symptom during adulthood 12/14/2015 None hyperlipidemia Severity moderate 12/14/2015 None hyperlipidemia Frequency of Episodes unchanged 12/14/2015 None hyperlipidemia Alleviating Factors medication 12/14/2015 None skin lesion Quality enlarging 12/14/2015 None skin lesion Quality firm 12/14/2015 None skin lesion Location left lower leg 12/14/2015 None skin lesion Onset and Resolution gradual in onset 12/14/2015 None anxiety Quality improving 07/12/2015 she has learned how to control it a little better- reports has a stressful job anxiety Quality stable 07/12/2015 None anxiety Onset and Resolution ongoing 07/12/2015 None hypertension Quality chronic 07/12/2015 None hypertension Onset and Resolution ongoing 07/12/2015 does not take regularly hypertension Onset of Symptom during adulthood 07/12/2015 None hypertension Severity mild 07/12/2015 None hypertension Significant Family History heart disease 07/12/2015 None hypertension Significant Medical Conditions cardiac disease 07/12/2015 None hypertension Pertinent Findings Denies dizziness 07/12/2015 None diabetes mellitus Quality non-insulin dependent 07/12/2015 None diabetes mellitus Alleviating Factors medication 07/12/2015 None diabetes mellitus Pertinent Findings Denies dizziness 07/12/2015 None diabetes mellitus Pertinent Findings Denies vomiting 07/12/2015 None diabetes mellitus Onset of Symptom onset as an adult 07/12/2015 None hyperlipidemia Onset of Symptom during adulthood 07/12/2015 None hyperlipidemia Severity moderate 07/12/2015 None hyperlipidemia Frequency of Episodes unchanged 07/12/2015 None hyperlipidemia Alleviating Factors medication 07/12/2015 None anxiety Onset of Symptom during adulthood 07/12/2015 None anxiety Frequency of Episodes unchanged 07/12/2015 None anxiety Significant Family History anxiety disorder 07/12/2015 None anxiety Triggers stress 07/12/2015 stressful job at [facility] [employer] anxiety Alleviating Factors medication 07/12/2015 decreased cymbalta to 30mg and that helps diabetes mellitus Test results Pt checking blood glucose readings, did not bring results to clinic 07/12/2015 None diabetes mellitus Glucose monitoring daily 07/12/2015 None diabetes mellitus Significant Medications glucagon 07/12/2015 None anxiety Onset and Resolution ongoing 01/11/2015 None anxiety Quality stable 01/11/2015 None anxiety Quality improving 01/11/2015 she has learned how to control it a little better- reports has a stressful job hypertension Onset and Resolution ongoing 01/11/2015 does not take regularly hypertension Pertinent Findings Denies dizziness 01/11/2015 None diabetes mellitus Test results Pt checking blood glucose readings, did not bring results to clinic 01/11/2015 135 during lunch- sees Dr. Hsu diabetes mellitus Glucose monitoring daily 01/11/2015 None hyperlipidemia Alleviating Factors medication 01/11/2015 None diabetes mellitus Quality non-insulin dependent 01/11/2015 None diabetes mellitus Blood glucose levels greater than 120 01/11/2015 None diabetes mellitus Alleviating Factors medication 01/11/2015 None diabetes mellitus Onset of Symptom onset as an adult 01/11/2015 None diabetes mellitus Pertinent Findings Denies dizziness 01/11/2015 None diabetes mellitus Pertinent Findings Denies vomiting 01/11/2015 None hyperlipidemia Onset of Symptom during adulthood 01/11/2015 None hyperlipidemia Severity moderate 01/11/2015 None hyperlipidemia Frequency of Episodes unchanged 01/11/2015 None hypertension Quality chronic 01/11/2015 None hypertension Onset of Symptom during adulthood 01/11/2015 None hypertension Severity mild 01/11/2015 None hypertension Significant Family History heart disease 01/11/2015 None hypertension Significant Medical Conditions cardiac disease 01/11/2015 None Advance Directives No Advance Directive data Encounters Encounter Performer Location Codes Date EST. PATIENT, LEVEL III Diagnosis: Other allergic rhinitis[ICD10: J30.89] Diagnosis: Acute upper respiratory infection, unspecified[ICD10: J06.9] Diagnosis: Gastro-esophageal reflux disease without esophagitis[ICD10: K21.9] Diagnosis: Rash and other nonspecific skin eruption[ICD10: R21] [facility] CPT-4: 81606 04/05/2018 [id number]) 16571 EST. PATIENT, LEVEL III Diagnosis: Pain in right knee[ICD10: M25.561] Diagnosis: Ocular pain, left eye[ICD10: H57.12] [facility] CPT-4: 17278 11/09/2017 07712 EST. PATIENT, LEVEL III Diagnosis: Other malaise[ICD10: R53.81] Diagnosis: Acute laryngopharyngitis[ICD10: J06.0] Diagnosis: Other allergic rhinitis[ICD10: J30.89] [facility] CPT-4: 52186 07/03/2017 [id number]) 26032 EST. PATIENT, LEVEL III Diagnosis: Essential (primary) hypertension[ICD10: I10] Diagnosis: Type 2 diabetes mellitus without complications[ICD10: E11.9] Desiree Aguirre MD, [facility] CPT-4: 18971 03/30/2017 ([id number]) 16581 EST. PATIENT, LEVEL III Diagnosis: Cough[ICD10: R05] Diagnosis: Acute upper respiratory infection, unspecified[ICD10: J06.9] Desiree Aguirre MD, [facility] CPT-4: 12372 01/09/2017 32967 EST. PATIENT, LEVEL III Diagnosis: Pain in right knee[ICD10: M25.561] Diagnosis: Other instability, right knee[ICD10: M25.361] Camille Aguirre MD, [facility] CPT-4: 96767 12/20/2016 65161 EST. PATIENT, LEVEL III Diagnosis: Pain in right knee[ICD10: M25.561] Camille Aguirre MD, [facility] CPT-4: 32669 12/08/2016 80129 EST. PATIENT, LEVEL III Diagnosis: Essential (primary) hypertension[ICD10: I10] Camille Aguirre MD, [facility] CPT-4: 05714 11/30/2016 04885 EST. PATIENT, LEVEL IV Diagnosis: Essential (primary) hypertension[ICD10: I10] Camille Aguirre MD, [facility] CPT-4: 52026 11/01/2016 71624 EST. PATIENT, LEVEL III Diagnosis: Essential (primary) hypertension[ICD10: I10] Camille Aguirre MD, [facility] CPT-4: 24902 10/18/2016 ([id number]) 49701 EST. PATIENT, LEVEL IV Diagnosis: Essential (primary) hypertension[ICD10: I10] Diagnosis: Type 2 diabetes mellitus without complications[ICD10: E11.9] Diagnosis: Mixed hyperlipidemia[ICD10: E78.2] Desiree Aguirre MD, [facility] CPT-4: 68878 09/29/2016 ([id number]) 93284 EST. PATIENT, LEVEL III Diagnosis: Essential (primary) hypertension[ICD10: I10] Diagnosis: Cough[ICD10: R05] Diagnosis: Acute recurrent maxillary sinusitis[ICD10: J01.01] Desiree Aguirre MD, [facility] CPT-4: 68887 06/13/2016 ([id number]) 90727 EST. PATIENT, LEVEL III Diagnosis: Type 2 diabetes mellitus without complications[ICD10: E11.9] Diagnosis: Essential (primary) hypertension[ICD10: I10] Diagnosis: Actinic keratosis[ICD10: L57.0] [facility] CPT-4: 86227 12/14/2015 ([id number]) 15929 EST. PATIENT, LEVEL IV Diagnosis: Essential (primary) hypertension[ICD10: I10] Diagnosis: Type 2 diabetes mellitus without complications[ICD10: E11.9] Diagnosis: Mixed hyperlipidemia[ICD10: E78.2] [facility] CPT-4: 71674 07/12/2015 ([id number]) OFFICE VISIT, NEW - LEVEL 4 Diagnosis: ESSENTIAL HYPERTENSION[ICD9: 401.9] Diagnosis: DIABETES TYPE II[ICD9: 250.00] Diagnosis: HYPERLIPIDEMIA[ICD9: 272.4] Diagnosis: ANXIETY STATE[ICD9: 300.00] [facility] CPT-4: 04790 01/11/2015 Plan of Care Planned Activity Notes Codes Status Date Patient Education: Patient Medication Summary Completed 05/03/2018 Visit Plan: URI - Pt advised to increase fluids, vitamin C. Discussed natural and expected course of this diagnosis and need to alert me if symptoms do not follow expected course, or if any worse. RX sent to patient' s pharmacy. Allergies - chronic - recommended pt to use allergy medication as prescribed. Pt has been counseled as to the appropriate use of the medication. Pt to call if allergy symptoms are not controlled with the medication. If using nasal spray, instructions as follows: Nasal spray- use twice daily, one spray per nostril twice daily, after 30 minutes, rinse out nose with saline spray.. Use opposite hand per nostril to spray in the nasal steroid allergy spray. Esophageal Reflux - the patient has been counseled against excessive intake of caffeine, spicy foods, peppermint, and cinnamon - all of which can exacerbate esophageal reflux. The patient is to take medications as prescribed and call the office if the symptoms are not improving. Rash - The patient was instructed to use the ointment as per RX. The patient is to call for any change in symptoms , increase in size of the lesion, increase in pain, worsening redness, warmth, discharge. 04/05/2018 Appointment: Camille Hanna WPtel: [phone] [id number] (15 min) Moderate 04/05/2018 Patient Education: Patient Medication Summary Completed 04/05/2018 Visit Plan: Right knee pain-swelling -DJD-patient to get knee brace Left lower eyelid swelling/drainage-rx for eye drops sent electronically and instructed patient on use -instructed patient to call if symptoms do not resolve or if any worse 11/09/2017 Appointment: Desiree Hernandez WPtel: [facility] [place] [phone] (15 min) Moderate 11/09/2017 Patient Education: Patient Medication Summary Completed 11/09/2017 Visit Plan: URI - Pt advised to increase fluids, vitamin C. Discussed natural and expected course of this diagnosis and need to alert me if symptoms do not follow expected course, or if any worse. RX sent to patient' s pharmacy. Allergies - chronic - recommended pt to use allergy medication as prescribed. Pt has been counseled as to the appropriate use of the medication. Pt to call if allergy symptoms are not controlled with the medication. If using nasal spray, instructions as follows: Nasal spray- use twice daily, one spray per nostril twice daily, after 30 minutes, rinse out nose with saline spray.. Use opposite hand per nostril to spray in the nasal steroid allergy spray. 07/03/2017 Appointment: Camille Hanna WPtel: [facility]9 [facility] (15 min) Moderate 07/03/2017 Patient Education: Patient Medication Summary Completed 07/03/2017 Visit Plan: Hypertension - well controlled - continue with current medications, continue with no added salt diet. Pt has been encouraged to exercise daily. The pt has been advised to call the office if there are any acute concerns about change in blood pressure readings at home. DM-sees Dr Hsu-will get labs before appt with Dr Hsu in 03/30/2017 Appointment: Desiree Hernandez WPtel: [facility] [place] [phone] [place] (30 min) Complex 03/30/2017 Patient Education: Patient Medication Summary Completed 03/30/2017 Patient Education: Hypertension Completed 03/30/2017 Visit Plan: URI - Pt advised to increase fluids, vitamin C. Discussed natural and expected course of this diagnosis and need to alert me if symptoms do not follow expected course, or if any worse. RX sent to patient' s pharmacy. 01/09/2017 Appointment: Desiree Hernandez WPtel: [phone] [place] (15 min) Moderate 01/09/2017 Patient Education: Patient Medication Summary Completed 01/09/2017 Referral: Sekou Hollingsworth Appointment on 01/01/17 at 9 AM - pt is to arrive at 8:45 and bring disc of MRI Appointment Confirmed 01/01/2017 Visit Plan: Right knee pain - worsening, with instability and popping - will order MRI, will refer to Dr. Hollingsworth - pt is to use RICE - Rest, Ice, Compression, Elevation - The pt is to use prn antiinflammatories to manage acute pain. The patient is to call the office if the pain is worsening or does not improve. 12/20/2016 Appointment: Camille Hanna WPtel: [facility] [place] (15 min) Moderate 12/20/2016 Patient Education: Patient Medication Summary Completed 12/20/2016 Care Plan: Referral Order SNOMED-CT : [id number] Pending 12/20/2016 Visit Plan: Right knee pain - pt is to use RICE - Rest, Ice , Compression, Elevation - The pt is to use prn antiinflammatories to manage acute pain. The patient is to call the office if the pain is worsening or does not improve. 12/08/2016 Appointment: Camille Hanna WPtel: [facility] [place] (30 min) Complex 12/08/2016 Patient Education: Patient Medication Summary Completed 12/08/2016 Patient Education: Obesity Completed 12/08/2016 Visit Plan: Hypertension - continue with current medications, continue with no added salt diet. Pt has been encouraged to exercise daily. The pt has been advised to call the office if there are any acute concerns about change in blood pressure readings at home. 11/30/2016 Appointment: Camille Hanna [facility]el[facility] [phone] [facility] (15 min) Moderate 11/30/2016 Patient Education: Patient Medication Summary Completed 11/30/2016 Visit Plan: Hypertension - uncontrolled - the patient's medications have been modified as documented in the visit note. The patient has been counseled to cut back on salt in diet for a no added salt diet, low fat diet, start an exercise program with low weight bearing exercises and higher aerobic activity for heart health. The patient is to check blood pressure readings as an outpatient and either fax, call, or email the readings to the office next week for practitioner to review. The pt is to call for acute concerns. 11/01/2016 Appointment: Camille Hanna [facility]el[facility] [phone] [facility] (15 min) Moderate 11/01/2016 Patient Education: Patient Medication Summary Completed 11/01/2016 Patient Education: Obesity Completed 11/01/2016 Patient Education: Hypertension Completed 11/01/2016 Visit Plan: Hypertension - uncontrolled - the patient's medications have been modified as documented in the visit note. The patient has been counseled to cut back on salt in diet for a no added salt diet, low fat diet, start an exercise program with low weight bearing exercises and higher aerobic activity for heart health. The patient is to check blood pressure readings as an outpatient and either fax, call, or email the readings to the office next week for practitioner to review. The pt is to call for acute concerns. 10/18/2016 Patient Education: Patient Medication Summary Completed 10/18/2016 Patient Education: Obesity Completed 10/18/2016 Patient Education: Hypertension Completed 10/18/2016 Visit Plan: Hypertension - well controlled - continue with current medications, continue with no added salt diet. Pt has been encouraged to exercise daily. The pt has been advised to call the office if there are any acute concerns about change in blood pressure readings at home. Diabetes Mellitus - controlled - per recent FSBS reports. I have recommended for the patient to have follow up labs prior to the next office visit. The patient has been instructed to continue with current medications as previously directed, continue with regular FSBS monitoring to assure continued control of diabetes. Pt to call for any acute concerns, complaints, or if the blood glucose readings are starting to become less controlled. Hyperlipidemia - pt has been counseled about appropriate diet, exercise, and need for low fat food choices. I have discussed the need for the patient to take medications as prescribed. If the patient has negative side effects from the medication, they are to CALL the office and not abruptly discontinue the medication without discussion with a practitioner in the office. We will check labs in 3-6 months for follow up on the patient's chronic medical problem and to assure normal liver response to medications. 09/29/2016 Appointment: Desiree Hernandez WPtel: [facility] (15 min) Moderate 09/29/2016 Patient Education: Patient Medication Summary Completed 09/29/2016 Visit Plan: HTN-elevated today but she didn't take her blood pressure medications today-get new blood pressure machine-monitor blood pressure and pulse at home and call if readings consistently 140/90. Patient verbalized understanding of plan. Hhtii-jvdvdgbox-sfvnhyszka - Pt has acute infection - Pt informed to use decongestant, RX given to patient, kenalog injection today in the office-start daily anti histamine such as jacki. Call if symptoms do not show improvement. 06/13/2016 Appointment: Desiree Hernandez WPtel: [facility] (15 min) Moderate 06/13/2016 Patient Education: Patient Medication Summary Completed 06/13/2016 Appointment: Desiree Hernandez WPtel: [facility] [place] [phone] (30 min) Complex 03/14/2016 Visit Plan: Hypertension - well controlled - continue with current medications, continue with no added salt diet. Pt has been encouraged to exercise daily. The pt has been advised to call the office if there are any acute concerns about change in blood pressure readings at home. Diabetes Mellitus - controlled - per recent FSBS reports. I have recommended for the patient to have follow up labs prior to the next office visit. The patient has been instructed to continue with current medications as previously directed, continue with regular FSBS monitoring to assure continued control of diabetes. Pt to call for any acute concerns, complaints, or if the blood glucose readings are starting to become less controlled. Wound Instructions-cryotherapy AK left and right calf - Pt was instructed to keep the wound clean, wash with antibacterial soap, use triple antibiotic ointment, call if redness, pustular drainage, or any other acute concerns. 12/14/2015 Appointment: Desiree Hernandez WPtel: [phone] (30 min) [facility] 12/14/2015 Patient Education: Patient Medication Summary Completed 12/14/2015 Patient Education: Hypertension Completed 12/14/2015 Visit Plan: Hypertension - well controlled - continue with current medications, continue with no added salt diet. Pt has been encouraged to exercise daily. The pt has been advised to call the office if there are any acute concerns about change in blood pressure readings at home. Diabetes Mellitus - controlled - per recent FSBS reports. I have recommended for the patient to have follow up labs prior to the next office visit. The patient has been instructed to continue with current medications as previously directed, continue with regular FSBS monitoring to assure continued control of diabetes. Pt to call for any acute concerns, complaints, or if the blood glucose readings are starting to become less controlled. Hyperlipidemia - pt has been counseled about appropriate diet, exercise, and need for low fat food choices. I have discussed the need for the patient to take medications as prescribed. If the patient has negative side effects from the medication, they are to CALL the office and not abruptly discontinue the medication without discussion with a practitioner in the office. We will check labs in 3-6 months for follow up on the patient's chronic medical problem and to assure normal liver response to medications. Left shoulder pain-tiger balm-avoid sleeping on left shoulder-call if pain does not resolve or if any worse 07/12/2015 Patient Education: Patient Medication Summary Completed 07/12/2015 Patient Education: Hypertension Completed 07/12/2015 Care Plan: COMPLETE CBC AUTOMATED LOINC : 29827-9 Ordered 07/12/2015 Visit Plan: Hypertension - well controlled - continue with current medications, continue with no added salt diet. Pt has been encouraged to exercise daily. The pt has been advised to call the office if there are any acute concerns about change in blood pressure readings at home. Diabetes Mellitus - controlled - per recent FSBS reports. I have recommended for the patient to have follow up labs prior to the next office visit. The patient has been instructed to continue with current medications as previously directed, continue with regular FSBS monitoring to assure continued control of diabetes. Pt to call for any acute concerns, complaints, or if the blood glucose readings are starting to become less controlled. Hyperlipidemia - pt has been counseled about appropriate diet, exercise, and need for low fat food choices. I have discussed the need for the patient to take medications as prescribed. If the patient has negative side effects from the medication, they are to CALL the office and not abruptly discontinue the medication without discussion with a practitioner in the office. We will check labs in 3-6 months for follow up on the patient's chronic medical problem and to assure normal liver response to medications. Anxiety-improved but stress increasing at work and wants to restart lower dose of cymbalta-RX sent to patient's pharmacy and instructed on use. Patient verbalized understanding of plan. 01/11/2015 Appointment: (S) New Patient 01/11/2015 Patient Education: Patient Medication Summary Completed 01/11/2015 Patient Education: Hypertension Completed 01/11/2015 Care Plan: COMPLETE CBC AUTOMATED LOINC : 99171-2 Ordered 01/11/2015 Referral: Sekou Hollingsworth Referral Initiated Instructions Comment . Hypertension - uncontrolled - the patient's medications have been modified as documented in the visit note. The patient has been counseled to cut back on salt in diet for a no added salt diet, low fat diet, start an exercise program with low weight bearing exercises and higher aerobic activity for heart health. The patient is to check blood pressure readings as an outpatient and either fax , call, or email the readings to the office next week for practitioner to review. The pt is to call for acute concerns. [place] - if voltaren gel is too expensive. Use RICE - Rest, Ice, Compression, Elevation. . Right knee pain - pt is to use RICE - Rest, Ice, Compression, Elevation - The pt is to use prn antiinflammatories to manage acute pain. The patient is to call the office if the pain is worsening or does not improve. . HTN-elevated today but she didn't take her blood pressure medications today-get new blood pressure machine-monitor blood pressure and pulse at home and call if readings consistently 140/90. Patient verbalized understanding of plan. Adpeg-trztohgmc-kuppyslaxb - Pt has acute infection - Pt informed to use decongestant, RX given to patient, kenalog injection today in the office-start daily anti histamine such as jacki. Call if symptoms do not show improvement. . Hypertension - well controlled - continue with current medications, continue with no added salt diet. Pt has been encouraged to exercise daily. The pt has been advised to call the office if there are any acute concerns about change in blood pressure readings at home. Diabetes Mellitus - controlled - per recent FSBS reports. I have recommended for the patient to have follow up labs prior to the next office visit. The patient has been instructed to continue with current medications as previously directed, continue with regular FSBS monitoring to assure continued control of diabetes. Pt to call for any acute concerns, complaints, or if the blood glucose readings are starting to become less controlled. Hyperlipidemia - pt has been counseled about appropriate diet, exercise, and need for low fat food choices. I have discussed the need for the patient to take medications as prescribed. If the patient has negative side effects from the medication, they are to CALL the office and not abruptly discontinue the medication without discussion with a practitioner in the office. We will check labs in 3-6 months for follow up on the patient's chronic medical problem and to assure normal liver response to medications. . URI - Pt advised to increase fluids, vitamin C. Discussed natural and expected course of this diagnosis and need to alert me if symptoms do not follow expected course, or if any worse. RX sent to patient's pharmacy. Allergies - chronic - recommended pt to use allergy medication as prescribed. Pt has been counseled as to the appropriate use of the medication. Pt to call if allergy symptoms are not controlled with the medication. If using nasal spray, instructions as follows: Nasal spray- use twice daily, one spray per nostril twice daily, after 30 minutes, rinse out nose with saline spray.. Use opposite hand per nostril to spray in the nasal steroid allergy spray. . Hypertension - well controlled - continue with current medications, continue with no added salt diet. Pt has been encouraged to exercise daily. The pt has been advised to call the office if there are any acute concerns about change in blood pressure readings at home. DM-sees Dr Hsu-will get labs before appt with Dr Hsu in May recommend anti histamine such as jacki or zyrtec . URI - Pt advised to increase fluids, vitamin C. Discussed natural and expected course of this diagnosis and need to alert me if symptoms do not follow expected course, or if any worse. RX sent to patient's pharmacy. . Hypertension - well controlled - continue with current medications, continue with no added salt diet. Pt has been encouraged to exercise daily. The pt has been advised to call the office if there are any acute concerns about change in blood pressure readings at home. Diabetes Mellitus - controlled - per recent FSBS reports. I have recommended for the patient to have follow up labs prior to the next office visit. The patient has been instructed to continue with current medications as previously directed, continue with regular FSBS monitoring to assure continued control of diabetes. Pt to call for any acute concerns, complaints, or if the blood glucose readings are starting to become less controlled. Wound Instructions-cryotherapy AK left and right calf - Pt was instructed to keep the wound clean, wash with antibacterial soap, use triple antibiotic ointment, call if redness, pustular drainage, or any other acute concerns. Tylenol - no more than 3,000 mg day. Right knee pain - worsening, with instability and popping - will order MRI, will refer to Dr. Hollingsworth - pt is to use RICE - Rest, Ice, Compression, Elevation - The pt is to use prn antiinflammatories to manage acute pain. The patient is to call the office if the pain is worsening or does not improve. . Hypertension - continue with current medications, continue with no added salt diet. Pt has been encouraged to exercise daily. The pt has been advised to call the office if there are any acute concerns about change in blood pressure readings at home. . URI - Pt advised to increase fluids, vitamin C. Discussed natural and expected course of this diagnosis and need to alert me if symptoms do not follow expected course, or if any worse. RX sent to patient's pharmacy. Allergies - chronic - recommended pt to use allergy medication as prescribed. Pt has been counseled as to the appropriate use of the medication. Pt to call if allergy symptoms are not controlled with the medication. If using nasal spray, instructions as follows: Nasal spray- use twice daily, one spray per nostril twice daily, after 30 minutes, rinse out nose with saline spray.. Use opposite hand per nostril to spray in the nasal steroid allergy spray. Esophageal Reflux - the patient has been counseled against excessive intake of caffeine, spicy foods, peppermint, and cinnamon - all of which can exacerbate esophageal reflux. The patient is to take medications as prescribed and call the office if the symptoms are not improving. Rash - The patient was instructed to use the ointment as per RX. The patient is to call for any change in symptoms, increase in size of the lesion, increase in pain, worsening redness, warmth, discharge. . Hypertension - uncontrolled - the patient's medications have been modified as documented in the visit note. The patient has been counseled to cut back on salt in diet for a no added salt diet, low fat diet, start an exercise program with low weight bearing exercises and higher aerobic activity for heart health. The patient is to check blood pressure readings as an outpatient and either fax , call, or email the readings to the office next week for practitioner to review. The pt is to call for acute concerns. [place] balm to left shoulder-call if pain does not resolve or it it worsens . Hypertension - well controlled - continue with current medications, continue with no added salt diet. Pt has been encouraged to exercise daily. The pt has been advised to call the office if there are any acute concerns about change in blood pressure readings at home. Diabetes Mellitus - controlled - per recent FSBS reports. I have recommended for the patient to have follow up labs prior to the next office visit. The patient has been instructed to continue with current medications as previously directed, continue with regular FSBS monitoring to assure continued control of diabetes. Pt to call for any acute concerns, complaints, or if the blood glucose readings are starting to become less controlled. Hyperlipidemia - pt has been counseled about appropriate diet, exercise, and need for low fat food choices. I have discussed the need for the patient to take medications as prescribed. If the patient has negative side effects from the medication, they are to CALL the office and not abruptly discontinue the medication without discussion with a practitioner in the office. We will check labs in 3-6 months for follow up on the patient's chronic medical problem and to assure normal liver response to medications. Left shoulder pain-tiger balm-avoid sleeping on left shoulder-call if pain does not resolve or if any worse . Hypertension - well controlled - continue with current medications, continue with no added salt diet. Pt has been encouraged to exercise daily. The pt has been advised to call the office if there are any acute concerns about change in blood pressure readings at home. Diabetes Mellitus - controlled - per recent FSBS reports. I have recommended for the patient to have follow up labs prior to the next office visit. The patient has been instructed to continue with current medications as previously directed, continue with regular FSBS monitoring to assure continued control of diabetes. Pt to call for any acute concerns, complaints, or if the blood glucose readings are starting to become less controlled. Hyperlipidemia - pt has been counseled about appropriate diet, exercise, and need for low fat food choices. I have discussed the need for the patient to take medications as prescribed. If the patient has negative side effects from the medication, they are to CALL the office and not abruptly discontinue the medication without discussion with a practitioner in the office. We will check labs in 3-6 months for follow up on the patient's chronic medical problem and to assure normal liver response to medications. Anxiety-improved but stress increasing at work and wants to restart lower dose of cymbalta-RX sent to patient's pharmacy and instructed on use. Patient verbalized understanding of plan. . 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
--- OUTSIDE RECORDS SUMMARY | 2018-05-31 09:16 | XMS REPORT | CCD ---
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 01/11/2015 Number [...] Instructions ketoconazole 2 % topical cream RxNorm: 745029 1 Application TOP BID 04/05/2018 No Stop Date Active Zithromax Z-Vignesh 250 mg tablet RxNorm: 092675 1 Tablet(s) PO UD 04/05/2018 No Stop Date Active triamcinolone acetonide 0.025 % topical cream RxNorm: 6111988 1 Application TOP BID 04/05/2018 No Stop Date Active Diflucan 150 mg tablet RxNorm: 430790 1 Tablet(s) PO daily dont start until z- pack is finished 04/05/2018 04/11/2018 Inactive losartan 100 mg-hydrochlorothiazide 12.5 mg tablet RxNorm: 947662 TAKE ONE TABLET BY MOUTH DAILY 02/20/2018 07/19/2018 Active Cymbalta 30 mg capsule,delayed release RxNorm: 913252 TAKE ONE CAPSULE BY MOUTH DAILY 02/19/2018 07/18/2018 Active atenolol 100 mg tablet RxNorm: 978998 TAKE ONE TABLET BY MOUTH DAILY 01/25/2018 07/18/2019 Active glimepiride 4 mg tablet RxNorm: 608692 1 Tablet(s) PO daily -Managed by Dr. Hsu 11/09/2017 No Stop Date Active gentamicin 0.3 % eye drops RxNorm: 489631 2 Drop(s) ophthalmic (eye) QID 11/09/2017 11/15/2017 Inactive atenolol 100 mg tablet RxNorm: 304136 1 Tablet(s) PO daily TAKE ONE TABLET BY MOUTH DAILY 08/01/2017 01/24/2018 Inactive Cymbalta 30 mg capsule,delayed release RxNorm: 297140 TAKE ONE CAPSULE BY MOUTH DAILY 07/30/2017 01/25/2018 Inactive losartan 100 mg-hydrochlorothiazide 12.5 mg tablet RxNorm: 149345 TAKE ONE TABLET BY MOUTH DAILY 07/30/2017 01/25/2018 Inactive Trulicity 1.5 mg/0.5 mL subcutaneous pen injector RxNorm: 9426218 1 injection SQ QW -Managed by Dr. Hsu 07/03/2017 No Stop Date Active Zithromax Z-Vignesh 250 mg tablet RxNorm: 529613 1 Tablet(s) PO UD 07/03/2017 07/29/2017 Inactive Cymbalta 30 mg capsule,delayed release RxNorm: 820316 TAKE ONE CAPSULE BY MOUTH DAILY 03/12/2017 07/09/2017 Inactive losartan 100 mg-hydrochlorothiazide 12.5 mg tablet RxNorm: 098458 TAKE ONE TABLET BY MOUTH DAILY 03/07/2017 07/04/2017 Inactive Diflucan 150 mg tablet RxNorm: 796254 1 Tablet(s) PO daily 12/201601/21/2017 Inactive Diflucan 150 mg tablet RxNorm: 497481 1 Tablet(s) PO daily 12/201601/14/2017 Inactive ceftriaxone 500 mg solution for injection RxNorm: 1356864 1 Milliliter(s) Inj 01/09/2017 01/09/2017 Inactive Augmentin 875 mg-125 mg tablet RxNorm: 836823 1 Tablet(s) PO BID 01/09/2017 01/15/2017 Inactive Voltaren 1 % topical gel RxNorm: 317267 1 Application TOP TID as needed 12/08/2016 No Stop Date Active losartan 100 mg-hydrochlorothiazide 12.5 mg tablet RxNorm: 710747 TAKE ONE TABLET BY MOUTH DAILY 12/01/2016 02/28/2017 Inactive atenolol 100 mg tablet RxNorm: 477932 TAKE ONE TABLET BY MOUTH DAILY 12/01/2016 02/28/2017 Inactive atenolol 100 mg tablet RxNorm: 809831 1 Tablet(s) PO daily 11/30/2016 Inactive losartan 100 mg-hydrochlorothiazide 12.5 mg tablet RxNorm: 345951 1 Tablet(s) PO daily 11/01/2016 11/30/2016 Inactive atenolol 50 mg tablet RxNorm: 082879 TAKE ONE TABLET BY MOUTH DAILY 08/04/2016 10/23/2016 Inactive Cymbalta 30 mg capsule,delayed release RxNorm: 089225 TAKE ONE CAPSULE BY MOUTH DAILY 08/04/2016 12/31/2016 Inactive losartan 50 mg-hydrochlorothiazide 12.5 mg tablet RxNorm: 696480 TAKE ONE TABLET BY MOUTH DAILY 06/19/2016 10/23/2016 Inactive doxycycline hyclate 100 mg tablet RxNorm: 940387 1 Tablet(s) PO BID 06/13/2016 06/19/2016 Inactive Kenalog 40 mg/mL suspension for injection RxNorm: 8085312 Milliliter(s) Inj 06/13/2016 06/13/2016 Inactive atenolol 50 mg tablet RxNorm: 551447 1 Tablet(s) PO daily 201511/09/2015 Inactive atenolol 50 mg tablet RxNorm: 355433 1 Tablet(s) PO daily 201505/07/2016 Inactive Cymbalta 30 mg capsule,delayed release RxNorm: 711144 TAKE ONE CAPSULE BY MOUTH DAILY 09/16/2015 03/13/2016 Inactive losartan 50 mg-hydrochlorothiazide 12.5 mg tablet RxNorm: 282509 TAKE ONE TABLET BY MOUTH DAILY 08/06/2015 02/01/2016 Inactive Cymbalta 30 mg capsule,delayed release RxNorm: 778619 TAKE ONE CAPSULE BY MOUTH DAILY 06/28/2015 08/26/2015 Inactive losartan 50 mg-hydrochlorothiazide 12.5 mg tablet RxNorm: 727014 1 Tablet(s) PO daily 05/05/2015 07/03/2015 Inactive Cymbalta 60 mg capsule,delayed release RxNorm: 843635 1 Capsule(s) PO QHS 03/15/2015 07/11/2015 Inactive Cymbalta 30 mg capsule,delayed release RxNorm: 823108 1 Capsule(s) PO daily 01/11/2015 04/10/2015 Inactive Cymbalta 60 mg capsule,delayed release RxNorm: 344525 1 Capsule(s) PO QHS please call office for appointment 11/23/2014 Inactive Cymbalta 60 mg capsule,delayed release RxNorm: 937643 1 Capsule(s) PO QHS please call office for appointment 11/23/2014 Inactive simvastatin 20 mg tablet RxNorm: 282753 1 Tablet(s) PO daily No Start Date Active metformin 500 mg tablet RxNorm: 546931 2 Tablet(s) PO BID No Start Date Active glimepiride 4 mg tablet RxNorm: 821547 2 Tablet(s) PO daily No Start Date 11/08/2017 Inactive Lantus 100 unit/mL subcutaneous solution RxNorm: 124251 12 Unit(s) SQ QHS No Start Date 01/21/2017 Inactive atenolol oral RxNorm: 1202 oral No Start Date 12/14/2015 Inactive Bydureon 2 mg/0.65 mL subcutaneous pen injector RxNorm: 1880477 Milliliter(s) SQ weekly No Start Date 12/13/2015 Inactive losartan 50 mg-hydrochlorothiazide 12.5 mg tablet RxNorm: 241636 1 Tablet(s) PO daily No Start Date 05/04/2015 Inactive Trulicity 0.75 mg/0.5 mL subcutaneous pen injector RxNorm: 6925789 Milliliter(s) SQ QW No Start Date 07/02/2017 Inactive Medication Administered Medication Codes Instructions Start Date Status ceftriaxone 500 mg solution for injection RxNorm: 0908673 1Milliliter 01/09/2017 No longer Active Kenalog 40 mg/mL suspension for injection RxNorm: 9548856 Milliliter 06/13/2016 No longer Active Immunizations No [...] Item Code Result Date C A/B FLU 7093411 Influenza A Scr Negative 07/03/2017 C A/B FLU 1459830 Influenza B Scr Negative 07/03/2017 C A/B FLU 0094623 Influenza Intrp B AG: PRID:PT:NOSE:NOM:IF See Footnote [...] CPT-4: J3301 06/13/2016 DESTRUCT PREMALG LESION CPT-4: 57783 12/14/2015 Vital Signs Date Vital 04/05/2018 Blood Pressure 1: 140/66 Code : 8480-6 BMI: 38.1 Code : 71388-2 Heart Rate 1 : 73 bpm Height: 5'7" SpO2: 98% Weight: 243 lbs 11/09/2017 Blood Pressure 1: 118/70 Code : 8480-6 BMI: 37.6 Code : 65214-4 Heart Rate 1 : 78 bpm Height: 5'7" SpO2: 99% Weight: 240 lbs 07/03/2017 Blood Pressure 1: 130/72 Code : 8480-6 BMI: 38.1 Code : 66711-6 Heart Rate 1 : 78 bpm Height: 5'7" SpO2: 97% Temperature: 36.3 (C) / 97.4 (F) Weight: 243 lbs 03/30/2017 Blood Pressure 1: 124/74 Code : 8480-6 BMI: 38.5 Code : 00692-0 Heart Rate 1 : 80 bpm Height: 5'7" SpO2: 97% Weight: 246 lbs 01/09/2017 Blood Pressure 1: 148/80 Code : 8480-6 BMI: 38.7 Code : 94215-0 Heart Rate 1 : 80 bpm Height: 5'7" SpO2: 97% Weight: 247 lbs 12/20/2016 Blood Pressure 1: 136/74 Code : 8480-6 Heart Rate 1: 78 bpm Height: SpO2: 98% Weight: 12/08/2016 Blood Pressure 1: 136/82 Code : 8480-6 BMI: 39.0 Code : 57983-7 Heart Rate 1 : 75 bpm Height: 5'7" SpO2: 97% Weight: 249 lbs 11/30/2016 Blood Pressure 1: 150/82 Code : 8480-6 BMI: 39.0 Code : 15753-6 Heart Rate 1 : 75 bpm Height: 5'7" SpO2: 98% Weight: 249 lbs 11/01/2016 Blood Pressure 1: 136/80 Code : 8480-6 BMI: 39.8 Code : 30784-9 Heart Rate 1 : 79 bpm Height: 5'7" SpO2: 98% Weight: 254 lbs 10/18/2016 Blood Pressure 1: 142/80 Code : 8480-6 BMI: 39.0 Code : 56349-6 Heart Rate 1 : 74 bpm Height: 5'7" SpO2: 97% Weight: 249 lbs 09/29/2016 Blood Pressure 1: 136/76 Code : 8480-6 BMI: 39.2 Code : 10199-6 Heart Rate 1 : 70 bpm Height: 5'7" SpO2: 96% Weight: 250 lbs 06/13/2016 Blood Pressure 1: 178/82 Code : 8480-6 Blood Pressure 1: 152/72 Code: 8480-6 BMI: 37.7 Code: 73885-1 Heart Rate 1: 108 bpm Height: 5'7" SpO2: 97% Weight: 241 lbs 12/14/2015 Blood Pressure 1: 136/80 Code : 8480-6 BMI: 38.4 Code : 02739-5 Heart Rate 1 : 97 bpm Height: 5'7" SpO2: 98% Weight: 245 lbs 07/12/2015 Blood Pressure 1: 160/68 Code : 8480-6 Blood Pressure 1: 138/78 Code: 8480-6 BMI: 38.4 Code: 47145-6 Heart Rate 1: 96 bpm Height: 5'7" SpO2: 98% Weight: 245 lbs 01/11/2015 Blood Pressure 1: 132/84 Code : 8480-6 BMI: 39.2 Code : 59266-9 Heart Rate 1 : 86 bpm Height: [...] anxiety Triggers stress 09/29/2016 stressful job at [employer] anxiety Alleviating Factors medication 09/29/2016 decreased cymbalta [...] anxiety Triggers stress 12/14/2015 stressful job at [employer] anxiety Alleviating Factors medication 12/14/2015 decreased cymbalta [...] anxiety Triggers stress 07/12/2015 stressful job at [employer] anxiety Alleviating Factors medication 07/12/2015 decreased cymbalta [...] eruption[ICD10: R21] [facility] CPT-4: 58655 04/05/2018 [id number]) 56981 EST. PATIENT, LEVEL III Diagnosis: Pain in right knee[ICD10: M25.561] Diagnosis: Ocular pain, left eye[ICD10: H57.12] [facility] CPT-4: 07940 11/09/2017 31802 EST. PATIENT, LEVEL III Diagnosis: Other malaise[ICD10: R53.81] Diagnosis: Acute laryngopharyngitis[ICD10: J06.0] Diagnosis: Other allergic rhinitis[ICD10: J30.89] [facility] CPT-4: 55094 07/03/2017 [id number]) 28973 EST. PATIENT, LEVEL III Diagnosis: Essential (primary) hypertension[ICD10: I10] Diagnosis: Type 2 diabetes mellitus without complications[ICD10: E11.9] Desiree Aguirre MD, [facility] CPT-4: 45794 03/30/2017 ([id number]) 36354 EST. PATIENT, LEVEL III Diagnosis: Cough[ICD10: R05] Diagnosis: Acute upper respiratory infection, unspecified[ICD10: J06.9] Desiree Aguirre MD, [facility] CPT-4: 14644 01/09/2017 09129 EST. PATIENT, LEVEL III Diagnosis: Pain in right knee[ICD10: M25.561] Diagnosis: Other instability, right knee[ICD10: M25.361] Camille Aguirre MD, [facility] CPT-4: 41910 12/20/2016 43518 EST. PATIENT, LEVEL III Diagnosis: Pain in right knee[ICD10: M25.561] Camille Aguirre MD, [facility] CPT-4: 86847 12/08/2016 02729 EST. PATIENT, LEVEL III Diagnosis: Essential (primary) hypertension[ICD10: I10] Camille Aguirre MD, [facility] CPT-4: 51856 11/30/2016 54894 EST. PATIENT, LEVEL IV Diagnosis: Essential (primary) hypertension[ICD10: I10] Camille Aguirre MD, [facility] CPT-4: 43938 11/01/2016 63998 EST. PATIENT, LEVEL III Diagnosis: Essential (primary) hypertension[ICD10: I10] Camille Aguirre MD, [facility] CPT-4: 73813 10/18/2016 ([id number]) 28144 EST. PATIENT, LEVEL IV Diagnosis: Essential (primary) hypertension[ICD10: I10] Diagnosis: Type 2 diabetes mellitus without complications[ICD10: E11.9] Diagnosis: Mixed hyperlipidemia[ICD10: E78.2] Desiree Aguirre MD, [facility] CPT-4: 83971 09/29/2016 ([id number]) 47901 EST. PATIENT, LEVEL III Diagnosis: Essential (primary) hypertension[ICD10: I10] Diagnosis: Cough[ICD10: R05] Diagnosis: Acute recurrent maxillary sinusitis[ICD10: J01.01] Desiree Aguirre MD, [facility] CPT-4: 63263 06/13/2016 ([id number]) 43917 EST. PATIENT, LEVEL III Diagnosis: Type 2 diabetes mellitus without complications[ICD10: E11.9] Diagnosis: Essential (primary) hypertension[ICD10: I10] Diagnosis: Actinic keratosis[ICD10: L57.0] [facility] CPT-4: 13080 12/14/2015 [id number]) 03712 EST. PATIENT, LEVEL IV Diagnosis: Essential (primary) hypertension[ICD10: I10] Diagnosis: Type 2 diabetes mellitus without complications[ICD10: E11.9] Diagnosis: Mixed hyperlipidemia[ICD10: E78.2] [facility] CPT-4: 62872 07/12/2015 ([id number]) OFFICE VISIT, NEW - LEVEL 4 Diagnosis: ESSENTIAL HYPERTENSION[ICD9: 401.9] Diagnosis: DIABETES TYPE II[ICD9: 250.00] Diagnosis: HYPERLIPIDEMIA[ICD9: 272.4] Diagnosis: ANXIETY STATE[ICD9: 300.00] [facility] CPT-4: 36937 01/11/2015 Plan of Care Planned Activity Notes Codes Status Date Patient Education: Patient Medication Summary Completed 05/03/2018 Care Plan: SCREENINGMAMMOGRAPHYDIGITAL LOINC : 95340-4 Pending 05/03/2018 [facility]ointment[facility] [place] (15 min) Moderate 04/05/2018 Patient Education: Patient Medication Summary Completed 04/05/2018 Appointment: Desiree Hernandez [facility] [phone] [place] (15 min) Moderate 11/09/2017 Patient Education: Patient Medication Summary Completed 11/09/2017 Appointment: Camille Hanna [facility] [place] (15 min) Moderate 07/03/2017 Patient Education: Patient Medication Summary Completed 07/03/2017 Appointment: Desiree Hernandez [facility] [phone] [place] (30 min) Complex 03/30/2017 Patient Education: Patient Medication Summary Completed 03/30/2017 Patient Education: Hypertension Completed 03/30/2017 Appointment: Desiree Hernandez WPtel: [phone] [phone] [place] (15 min) Moderate 01/09/2017 Patient Education: Patient Medication Summary Completed 01/09/2017 Referral: Sekou Hollingsworth Appointment on 01/01/17 at 9 AM - pt is to arrive at 8:45 and bring disc of MRI Appointment Confirmed 01/01/2017 Appointment: Camille Hanna [facility] [phone] [facility] [place] [place] (15 min) Moderate 12/20/2016 Patient Education: Patient Medication Summary Completed 12/20/2016 Care Plan: Referral Order SNOMED-CT : [id number] Pending 12/20/2016 Appointment: Camille Hanna WPtel: [facility] [place] (30 min) Complex 12/08/2016 Patient Education: Patient Medication Summary Completed 12/08/2016 Patient Education: Obesity Completed 12/08/2016 Appointment: Camille Hanna [facility] [place] [place] (15 min) Moderate 11/30/2016 Patient Education: Patient Medication Summary Completed 11/30/2016 Appointment: Camille Hanna [facility] [place] [place] (15 min) Moderate 11/01/2016 Patient Education: Patient Medication Summary Completed 11/01/2016 Patient Education: Obesity Completed 11/01/2016 Patient Education: Hypertension Completed 11/01/2016 Patient Education: Patient Medication Summary Completed 10/18/2016 Patient Education: Obesity Completed 10/18/2016 Patient Education: Hypertension Completed 10/18/2016 Appointment: Desiree Hernandez WPtel: [phone] [place] (15 min) Moderate 09/29/2016 Patient Education: Patient Medication Summary Completed 09/29/2016 Appointment: [facility]ire[facility] [phone] [facility] [phone] (15 min) Moderate 06/13/2016 Patient Education: Patient Medication Summary Completed 06/13/2016 Appointment: Desiree Hernandez [phone] (30 min) Complex 03/14/2016 Appointment: Desiree Hernandez [phone] (30 min) Complex 12/14/2015 Patient Education: Patient Medication Summary Completed 12/14/2015 Patient Education: Hypertension Completed 12/14/2015 Patient Education: Patient Medication Summary Completed 07/12/2015 Patient Education: Hypertension Completed 07/12/2015 Care Plan: COMPLETE CBC AUTOMATED LOINC : 38004-6 Ordered 07/12/2015 Appointment: (S) New Patient 01/11/2015 Patient Education: Patient Medication Summary Completed 01/11/2015 Patient Education: Hypertension Completed 01/11/2015 Care Plan: COMPLETE CBC AUTOMATED LOINC : 64250-7 Ordered 01/11/2015 Referral: Sekou Hollingsworth Referral Initiated Instructions No Instructions
--- NOTE | 2018-05-31 09:17 | Pre-Op Note & Conscious Sedat ---
Pre-Operative Progress Note H&P Reviewed The H&P was reviewed, patient examined and no changes noted. Date H&P Reviewed: May 31, 2018 Time H&P Reviewed: 07:55 Conscious Sedation Pre-Proced ASA Score 2 For ASA 3 and 4: Consider anesthesia and medical clearance. Also, for patients with a history of failed moderate sedation consider anesthesia. Airway Lungs Heart ASA score ASA 1: a normal healthy patient ASA 2: a patient with a mild systemic disease (mid diabetes, controlled hypertension, obesity ASA 3: a patient with a severe systemic disease that limits activity (angina , COPD, prior Myocardial infarction) ASA 4: a patient with an incapacitating disease that is a constant threat to life (CHF, renal failure) ASA 5: a moribund patient not expected to survive 24 hrs. (ruptured aneurysm) ASA 6: a declared brain patient whose organs are being harvested. For emergent operations, add the letter E after the classification Mallampati Classification Grade 2 Sedation Plan Analgesia, Amnesia, Plan communicated to team members, Discussed options with patient/fam, Discussed risks with patient/fam The patient is an appropriate candidate to undergo the planned procedure, sedation, and anesthesia. The patient immediately re-assessed prior to indication. LIBORIO العلي MD May 31, 2018 09:17
--- OUTSIDE RECORDS SUMMARY | 2018-05-31 09:17 | XMS REPORT | CCD ---
Author Author [facility] Address [address] [place] [address] Phone Care Team Providers Care Sanitary Plumber Name Role Phone PP Unavailable CCM Unavailable Summary Purpose Interface Exchange Insurance Providers Payer name Policy type / Coverage type Covered democrat ID Effective Begin Date Effective End Date Blue [facility] Blue Cross/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/11/[address]: 4645453 Quit over 10 years ago 01/11/2015 Number [...] Codes Condition Status Onset Date Resolved Date Acute laryngopharyngitis ICD-9: 465.0 ICD-10: J06.0 Active [...] Problems Condition Codes Effective Dates Condition Status Acute laryngopharyngitis ICD-9: 465.0 ICD-10: J06.0 07/03/2017 [...] Instructions ketoconazole 2 % topical cream RxNorm: 883609 1 Application TOP BID 04/05/2018 No Stop Date Active Diflucan 150 mg tablet RxNorm: 348764 1 Tablet(s) PO daily dont start until z- pack is finished 04/05/2018 04/11/2018 Active Zithromax Z-Vignesh 250 mg tablet RxNorm: 436385 1 Tablet(s) PO UD 04/05/2018 No Stop Date Active triamcinolone acetonide 0.025 % topical cream RxNorm: 9503635 1 Application TOP BID 04/05/2018 No Stop Date Active losartan 100 mg-hydrochlorothiazide 12.5 mg tablet RxNorm: 342877 TAKE ONE TABLET BY MOUTH DAILY 02/20/2018 07/19/2018 Active Cymbalta 30 mg capsule,delayed release RxNorm: 284285 TAKE ONE CAPSULE BY MOUTH DAILY 02/19/2018 07/18/2018 Active atenolol 100 mg tablet RxNorm: 827236 TAKE ONE TABLET BY MOUTH DAILY 01/25/2018 07/18/2019 Active glimepiride 4 mg tablet RxNorm: 865557 1 Tablet(s) PO daily -Managed by Dr. Hsu 11/09/2017 No Stop Date Active gentamicin 0.3 % eye drops RxNorm: 624014 2 Drop(s) ophthalmic (eye) QID 11/09/2017 11/15/2017 Inactive atenolol 100 mg tablet RxNorm: 443540 1 Tablet(s) PO daily TAKE ONE TABLET BY MOUTH DAILY 08/01/2017 01/24/2018 Inactive Cymbalta 30 mg capsule,delayed release RxNorm: 838759 TAKE ONE CAPSULE BY MOUTH DAILY 07/30/2017 01/25/2018 Inactive losartan 100 mg-hydrochlorothiazide 12.5 mg tablet RxNorm: 920745 TAKE ONE TABLET BY MOUTH DAILY 07/30/2017 01/25/2018 Inactive Trulicity 1.5 mg/0.5 mL subcutaneous pen injector RxNorm: 1147119 1 injection SQ QW -Managed by Dr. Hsu 07/03/2017 No Stop Date Active Zithromax Z-Vignesh 250 mg tablet RxNorm: 294151 1 Tablet(s) PO UD 07/03/2017 07/29/2017 Inactive Cymbalta 30 mg capsule,delayed release RxNorm: 425812 TAKE ONE CAPSULE BY MOUTH DAILY 03/12/2017 07/09/2017 Inactive losartan 100 mg-hydrochlorothiazide 12.5 mg tablet RxNorm: 338464 TAKE ONE TABLET BY MOUTH DAILY 03/07/2017 07/04/2017 Inactive Diflucan 150 mg tablet RxNorm: 438283 1 Tablet(s) PO daily 12/201601/21/2017 Inactive Diflucan 150 mg tablet RxNorm: 250029 1 Tablet(s) PO daily 12/201601/14/2017 Inactive ceftriaxone 500 mg solution for injection RxNorm: 8297598 1 Milliliter(s) Inj 01/09/2017 01/09/2017 Inactive Augmentin 875 mg-125 mg tablet RxNorm: 916319 1 Tablet(s) PO BID 01/09/2017 01/15/2017 Inactive Voltaren 1 % topical gel RxNorm: 159387 1 Application TOP TID as needed 12/08/2016 No Stop Date Active losartan 100 mg-hydrochlorothiazide 12.5 mg tablet RxNorm: 110616 TAKE ONE TABLET BY MOUTH DAILY 12/01/2016 02/28/2017 Inactive atenolol 100 mg tablet RxNorm: 266492 TAKE ONE TABLET BY MOUTH DAILY 12/01/2016 02/28/2017 Inactive atenolol 100 mg tablet RxNorm: 058892 1 Tablet(s) PO daily 11/30/2016 Inactive losartan 100 mg-hydrochlorothiazide 12.5 mg tablet RxNorm: 213641 1 Tablet(s) PO daily 11/01/2016 11/30/2016 Inactive atenolol 50 mg tablet RxNorm: 527951 TAKE ONE TABLET BY MOUTH DAILY 08/04/2016 10/23/2016 Inactive Cymbalta 30 mg capsule,delayed release RxNorm: 908409 TAKE ONE CAPSULE BY MOUTH DAILY 08/04/2016 12/31/2016 Inactive losartan 50 mg-hydrochlorothiazide 12.5 mg tablet RxNorm: 356748 TAKE ONE TABLET BY MOUTH DAILY 06/19/2016 10/23/2016 Inactive doxycycline hyclate 100 mg tablet RxNorm: 547739 1 Tablet(s) PO BID 06/13/2016 06/19/2016 Inactive Kenalog 40 mg/mL suspension for injection RxNorm: 2557751 Milliliter(s) Inj 06/13/2016 06/13/2016 Inactive atenolol 50 mg tablet RxNorm: 812140 1 Tablet(s) PO daily 201511/09/2015 Inactive atenolol 50 mg tablet RxNorm: 708011 1 Tablet(s) PO daily 201505/07/2016 Inactive Cymbalta 30 mg capsule,delayed release RxNorm: 269710 TAKE ONE CAPSULE BY MOUTH DAILY 09/16/2015 03/13/2016 Inactive losartan 50 mg-hydrochlorothiazide 12.5 mg tablet RxNorm: 619283 TAKE ONE TABLET BY MOUTH DAILY 08/06/2015 02/01/2016 Inactive Cymbalta 30 mg capsule,delayed release RxNorm: 837523 TAKE ONE CAPSULE BY MOUTH DAILY 06/28/2015 08/26/2015 Inactive losartan 50 mg-hydrochlorothiazide 12.5 mg tablet RxNorm: 095343 1 Tablet(s) PO daily 05/05/2015 07/03/2015 Inactive Cymbalta 60 mg capsule,delayed release RxNorm: 625751 1 Capsule(s) PO QHS 03/15/2015 07/11/2015 Inactive Cymbalta 30 mg capsule,delayed release RxNorm: 940803 1 Capsule(s) PO daily 01/11/2015 04/10/2015 Inactive Cymbalta 60 mg capsule,delayed release RxNorm: 411701 1 Capsule(s) PO QHS please call office for appointment 11/23/2014 Inactive Cymbalta 60 mg capsule,delayed release RxNorm: 175185 1 Capsule(s) PO QHS please call office for appointment 11/23/2014 Inactive simvastatin 20 mg tablet RxNorm: 359871 1 Tablet(s) PO daily No Start Date Active metformin 500 mg tablet RxNorm: 706549 2 Tablet(s) PO BID No Start Date Active glimepiride 4 mg tablet RxNorm: 554449 2 Tablet(s) PO daily No Start Date 11/08/2017 Inactive Lantus 100 unit/mL subcutaneous solution RxNorm: 672335 12 Unit(s) SQ QHS No Start Date 01/21/2017 Inactive atenolol oral RxNorm: 1202 oral No Start Date 12/14/2015 Inactive Bydureon 2 mg/0.65 mL subcutaneous pen injector RxNorm: 7683200 Milliliter(s) SQ weekly No Start Date 12/13/2015 Inactive losartan 50 mg-hydrochlorothiazide 12.5 mg tablet RxNorm: 956086 1 Tablet(s) PO daily No Start Date 05/04/2015 Inactive Trulicity 0.75 mg/0.5 mL subcutaneous pen injector RxNorm: 7329518 Milliliter(s) SQ QW No Start Date 07/02/2017 Inactive Medication Administered Medication Codes Instructions Start Date Status ceftriaxone 500 mg solution for injection RxNorm: 5978440 1Milliliter 01/09/2017 No longer Active Kenalog 40 mg/mL suspension for injection RxNorm: 9687864 Milliliter 06/13/2016 No longer Active Immunizations No Immunization data Assessments Condition Codes Effective Dates Gastro-esophageal reflux disease without esophagitis ICD-10 : [...] Item Code Result Date C A/B FLU 8366215 Influenza A Scr Negative 07/03/2017 C A/B FLU 4375690 Influenza B Scr Negative 07/03/2017 C A/B FLU 9064252 Influenza Intrp B AG: PRID:PT:NOSE:NOM:IF See Footnote [...] CPT-4: J3301 06/13/2016 DESTRUCT PREMALG LESION CPT-4: 64214 12/14/2015 Vital Signs Date Vital 04/05/2018 Blood Pressure 1: 140/66 Code : 8480-6 BMI: 38.1 Code : 16878-0 Heart Rate 1 : 73 bpm Height: 5'7" SpO2: 98% Weight: 243 lbs 11/09/2017 Blood Pressure 1: 118/70 Code : 8480-6 BMI: 37.6 Code : 62042-6 Heart Rate 1 : 78 bpm Height: 5'7" SpO2: 99% Weight: 240 lbs 07/03/2017 Blood Pressure 1: 130/72 Code : 8480-6 BMI: 38.1 Code : 41108-6 Heart Rate 1 : 78 bpm Height: 5'7" SpO2: 97% Temperature: 36.3 (C) / 97.4 (F) Weight: 243 lbs 03/30/2017 Blood Pressure 1: 124/74 Code : 8480-6 BMI: 38.5 Code : 89583-2 Heart Rate 1 : 80 bpm Height: 5'7" SpO2: 97% Weight: 246 lbs 01/09/2017 Blood Pressure 1: 148/80 Code : 8480-6 BMI: 38.7 Code : 54321-9 Heart Rate 1 : 80 bpm Height: 5'7" SpO2: 97% Weight: 247 lbs 12/20/2016 Blood Pressure 1: 136/74 Code : 8480-6 Heart Rate 1: 78 bpm Height: SpO2: 98% Weight: 12/08/2016 Blood Pressure 1: 136/82 Code : 8480-6 BMI: 39.0 Code : 52088-8 Heart Rate 1 : 75 bpm Height: 5'7" SpO2: 97% Weight: 249 lbs 11/30/2016 Blood Pressure 1: 150/82 Code : 8480-6 BMI: 39.0 Code : 40682-6 Heart Rate 1 : 75 bpm Height: 5'7" SpO2: 98% Weight: 249 lbs 11/01/2016 Blood Pressure 1: 136/80 Code : 8480-6 BMI: 39.8 Code : 61108-3 Heart Rate 1 : 79 bpm Height: 5'7" SpO2: 98% Weight: 254 lbs 10/18/2016 Blood Pressure 1: 142/80 Code : 8480-6 BMI: 39.0 Code : 79193-6 Heart Rate 1 : 74 bpm Height: 5'7" SpO2: 97% Weight: 249 lbs 09/29/2016 Blood Pressure 1: 136/76 Code : 8480-6 BMI: 39.2 Code : 51835-2 Heart Rate 1 : 70 bpm Height: 5'7" SpO2: 96% Weight: 250 lbs 06/13/2016 Blood Pressure 1: 178/82 Code : 8480-6 Blood Pressure 1: 152/72 Code: 8480-6 BMI: 37.7 Code: 45690-5 Heart Rate 1: 108 bpm Height: 5'7" SpO2: 97% Weight: 241 lbs 12/14/2015 Blood Pressure 1: 136/80 Code : 8480-6 BMI: 38.4 Code : 91756-0 Heart Rate 1 : 97 bpm Height: 5'7" SpO2: 98% Weight: 245 lbs 07/12/2015 Blood Pressure 1: 160/68 Code : 8480-6 Blood Pressure 1: 138/78 Code: 8480-6 BMI: 38.4 Code: 19728-3 Heart Rate 1: 96 bpm Height: 5'7" SpO2: 98% Weight: 245 lbs 01/11/2015 Blood Pressure 1: 132/84 Code : 8480-6 BMI: 39.2 Code : 63071-6 Heart Rate 1 : 86 bpm Height: [...] anxiety Triggers stress 09/29/2016 stressful job at [employer] anxiety Alleviating Factors medication 09/29/2016 decreased [...] anxiety Triggers stress 12/14/2015 stressful job at [employer] anxiety Alleviating Factors medication 12/14/2015 decreased [...] anxiety Triggers stress 07/12/2015 stressful job at [employer] anxiety Alleviating Factors medication 07/12/2015 decreased cymbalta [...] data Encounters Encounter Performer Location Codes Date 20156 EST. PATIENT, LEVEL III Diagnosis: Other allergic rhinitis[ICD10: J30.89] Diagnosis: Acute upper respiratory infection, unspecified[ICD10: J06.9] Diagnosis: Gastro-esophageal reflux disease without esophagitis[ICD10: K21.9] Diagnosis: Rash and other nonspecific skin eruption[ICD10: R21] Camille Aguirre MD, [facility] CPT-4: 77846 04/05/2018 ([id number]) 16077 EST. PATIENT, LEVEL III Diagnosis: Pain in right knee[ICD10: M25.561] Diagnosis: Ocular pain, left eye[ICD10: H57.12] Desiree Aguirre MD, [facility] CPT-4: 53382 11/09/2017 23016 EST. PATIENT, LEVEL III Diagnosis: Other malaise[ICD10: R53.81] Diagnosis: Acute laryngopharyngitis[ICD10: J06.0] Diagnosis: Other allergic rhinitis[ICD10: J30.89] Camille Aguirre MD, [facility] CPT-4: 01158 07/03/2017 [id number]) 91097 EST. PATIENT, LEVEL III Diagnosis: Essential (primary) hypertension[ICD10: I10] Diagnosis: Type 2 diabetes mellitus without complications[ICD10: E11.9] Desiree Aguirre MD, [facility] CPT-4: 12076 03/30/2017 ([id number]) 62940 EST. PATIENT, LEVEL III Diagnosis: Cough[ICD10: R05] Diagnosis: Acute upper respiratory infection, unspecified[ICD10: J06.9] Desiree Aguirre MD, [facility] CPT-4: 19468 01/09/2017 95960 EST. PATIENT, LEVEL III Diagnosis: Pain in right knee[ICD10: M25.561] Diagnosis: Other instability, right knee[ICD10: M25.361] Camille Aguirre MD, [facility] CPT-4: 61931 12/20/2016 02111 EST. PATIENT, LEVEL III Diagnosis: Pain in right knee[ICD10: M25.561] Camille Aguirre MD, [facility] CPT-4: 15834 12/08/2016 77796 EST. PATIENT, LEVEL III Diagnosis: Essential (primary) hypertension[ICD10: I10] Camille Aguirre MD, [facility] CPT-4: 37686 11/30/2016 83453 EST. PATIENT, LEVEL IV Diagnosis: Essential (primary) hypertension[ICD10: I10] Camille Aguirre MD, [facility] CPT-4: 72316 11/01/2016 28623 EST. PATIENT, LEVEL III Diagnosis: Essential (primary) hypertension[ICD10: I10] Camille Aguirre MD, [facility] CPT-4: 11540 10/18/2016 ([id number]) 61921 EST. PATIENT, LEVEL IV Diagnosis: Essential (primary) hypertension[ICD10: I10] Diagnosis: Type 2 diabetes mellitus without complications[ICD10: E11.9] Diagnosis: Mixed hyperlipidemia[ICD10: E78.2] Desiree Aguirre MD, [facility] CPT-4: 96461 09/29/2016 ([id number]) 79316 EST. PATIENT, LEVEL III Diagnosis: Essential (primary) hypertension[ICD10: I10] Diagnosis: Cough[ICD10: R05] Diagnosis: Acute recurrent maxillary sinusitis[ICD10: J01.01] Desiree Aguirre MD, [facility] CPT-4: 59856 06/13/2016 ([id number]) 41709 EST. PATIENT, LEVEL III Diagnosis: Type 2 diabetes mellitus without complications[ICD10: E11.9] Diagnosis: Essential (primary) hypertension[ICD10: I10] Diagnosis: Actinic keratosis[ICD10: L57.0] Desiree Aguirre MD, [facility] CPT-4: 15371 12/14/2015 ([id number]) 50040 EST. PATIENT, LEVEL IV Diagnosis: Essential (primary) hypertension[ICD10: I10] Diagnosis: Type 2 diabetes mellitus without complications[ICD10: E11.9] Diagnosis: Mixed hyperlipidemia[ICD10: E78.2] [facility] CPT-4: 69253 07/12/2015 ([id number]) OFFICE VISIT, NEW - LEVEL 4 Diagnosis: ESSENTIAL HYPERTENSION[ICD9: 401.9] Diagnosis: DIABETES TYPE II[ICD9: 250.00] Diagnosis: HYPERLIPIDEMIA[ICD9: 272.4] Diagnosis: ANXIETY STATE[ICD9: 300.00] [facility] CPT-4: 31774 01/11/2015 Plan of Care Planned Activity Notes Codes Status Date Visit Plan: URI - Pt advised to [...] warmth, discharge. 04/05/2018 Appointment: Camille Hanna WPtel: [address] [place], [place] [address] (15 min) Moderate 04/05/2018 Patient Education: Patient Medication Summary Completed 04/05/2018 Visit Plan: Right knee pain-swelling -DJD-patient to get knee brace Left lower eyelid swelling/drainage-rx for eye drops sent electronically and instructed patient on use -instructed patient to call if symptoms do not resolve or if any worse 11/09/2017 Appointment: Desiree Hernandez WPtel: [address] [place], [place] [phone] (15 min) Moderate 11/09/2017 Patient Education: Patient [...] allergy spray. 07/03/2017 Appointment: Camille Hanna WPtel: [facility] (15 min) Moderate 07/03/2017 Patient Education: Patient [...] Hsu in 03/30/2017 Appointment: Desiree Hernandez WPtel: [address] [place], [place] [phone] (30 min) Complex 03/30/2017 Patient Education: Patient Medication Summary Completed 03/30/2017 Patient Education: Hypertension Completed 03/30/2017 Visit Plan: URI - Pt advised to increase fluids, vitamin C. Discussed natural and expected course of this diagnosis and need to alert me if symptoms do not follow expected course, or if any worse. RX sent to patient' s pharmacy. 01/09/2017 Appointment: Deisree Hernandez WPtel: [address] [place], [place] [phone] [place] (15 min) Moderate 01/09/2017 Patient Education: [...] not improve. 12/20/2016 Appointment: Cam[facility] Hanna WPtel[facility] [place] (15 min) Moderate 12/20/2016 Patient Education: Patient Medication Summary Completed 12/20/2016 Care Plan: Referral Order SNOMED-CT : [id number] Pending 12/20/2016 Visit Plan: Right knee pain - pt is to use RICE - Rest, Ice , Compression, Elevation - The pt is to use prn antiinflammatories to manage acute pain. The patient is to call the office if the pain is worsening or does not improve. 12/08/2016 Appointment: [facility] [phone] [facility] [place] (30 min) Complex 12/08/2016 Patient Education: [...] at home. 11/30/2016 Appointment: Camille Hanna WPtel: [facility] [place] (15 min) Moderate 11/30/2016 Patient Education: [...] acute concerns. 11/01/2016 Appointment: Camille Hanna WPtel: [facility] (15 min) Moderate 11/01/2016 Patient Education: Patient [...] to medications. 09/29/2016 Appointment: Desiree Hernandez WPtel: [address] [place] [address] (15 min) Moderate 09/29/2016 Patient Education: Patient Medication Summary Completed 09/29/2016 Visit Plan: HTN-elevated today but she didn't take her blood pressure medications today-get new blood pressure machine-monitor blood pressure and pulse at home and call if readings consistently 140/90. Patient verbalized understanding of plan. Etwbm-usvjfenaa-fesxxacqmq - Pt has acute infection - Pt informed to use decongestant, RX given to patient, kenalog injection today in the office-start daily anti histamine such as jacki. Call if symptoms do not show improvement. 06/13/2016 Appointment: Desiree Hernandez WPtel: [facility] (15 min) Moderate 06/13/2016 Patient Education: Patient Medication Summary Completed 06/13/2016 Appointment: Desiree Hernandez WPtel: [facility] [address] (30 min) Complex 03/14/2016 Visit Plan: Hypertension [...] acute concerns. 12/14/2015 Appointment: Desiree Hernandez WPtel: [facility] [address] (30 min) [facility] 12/14/2015 Patient Education: Patient Medication Summary [...] Care Plan: COMPLETE CBC AUTOMATED LOINC : 62111-8 Ordered 07/12/2015 Visit Plan: Hypertension - well [...] Care Plan: COMPLETE CBC AUTOMATED LOINC : 00375-3 Ordered 01/11/2015 Referral: Sekou Hollingsworth Referral Initiated [...] pt is to call for acute concerns. [place] - if voltaren gel is too expensive. [...] consistently 140/90. Patient verbalized understanding of plan. [id number]-[id number] - Pt has acute infection - Pt [...] pt is to call for acute concerns. [place] balm to left shoulder-call if pain does [...]
--- OUTSIDE RECORDS SUMMARY | 2018-05-31 09:19 | XMS REPORT | CCD ---
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/[address]: 0329278 Quit over 10 years ago 01/11/2015 Number [...] Instructions ketoconazole 2 % topical cream RxNorm: 604262 1 Application TOP BID 04/05/2018 No Stop Date Active Diflucan 150 mg tablet RxNorm: 143045 1 Tablet(s) PO daily dont start until z- pack is finished 04/05/2018 04/11/2018 Active Zithromax Z-Vignesh 250 mg tablet RxNorm: 425401 1 Tablet(s) PO UD 04/05/2018 No Stop Date Active triamcinolone acetonide 0.025 % topical cream RxNorm: 6686716 1 Application TOP BID 04/05/2018 No Stop Date Active losartan 100 mg-hydrochlorothiazide 12.5 mg tablet RxNorm: 042310 TAKE ONE TABLET BY MOUTH DAILY 02/20/2018 07/19/2018 Active Cymbalta 30 mg capsule,delayed release RxNorm: 866678 TAKE ONE CAPSULE BY MOUTH DAILY 02/19/2018 07/18/2018 Active atenolol 100 mg tablet RxNorm: 760652 TAKE ONE TABLET BY MOUTH DAILY 01/25/2018 07/18/2019 Active glimepiride 4 mg tablet RxNorm: 476280 1 Tablet(s) PO daily -Managed by Dr. Hsu 11/09/2017 No Stop Date Active gentamicin 0.3 % eye drops RxNorm: 880267 2 Drop(s) ophthalmic (eye) QID 11/09/2017 11/15/2017 Inactive atenolol 100 mg tablet RxNorm: 686343 1 Tablet(s) PO daily TAKE ONE TABLET BY MOUTH DAILY 08/01/2017 01/24/2018 Inactive Cymbalta 30 mg capsule,delayed release RxNorm: 975663 TAKE ONE CAPSULE BY MOUTH DAILY 07/30/2017 01/25/2018 Inactive losartan 100 mg-hydrochlorothiazide 12.5 mg tablet RxNorm: 190432 TAKE ONE TABLET BY MOUTH DAILY 07/30/2017 01/25/2018 Inactive Trulicity 1.5 mg/0.5 mL subcutaneous pen injector RxNorm: 9738093 1 injection SQ QW -Managed by Dr. Hsu 07/03/2017 No Stop Date Active Zithromax Z-Vignesh 250 mg tablet RxNorm: 573945 1 Tablet(s) PO UD 07/03/2017 07/29/2017 Inactive Cymbalta 30 mg capsule,delayed release RxNorm: 647706 TAKE ONE CAPSULE BY MOUTH DAILY 03/12/2017 07/09/2017 Inactive losartan 100 mg-hydrochlorothiazide 12.5 mg tablet RxNorm: 867062 TAKE ONE TABLET BY MOUTH DAILY 03/07/2017 07/04/2017 Inactive Diflucan 150 mg tablet RxNorm: 364740 1 Tablet(s) PO daily 12/201601/21/2017 Inactive Diflucan 150 mg tablet RxNorm: 484074 1 Tablet(s) PO daily 12/201601/14/2017 Inactive ceftriaxone 500 mg solution for injection RxNorm: 9968253 1 Milliliter(s) Inj 01/09/2017 01/09/2017 Inactive Augmentin 875 mg-125 mg tablet RxNorm: 831613 1 Tablet(s) PO BID 01/09/2017 01/15/2017 Inactive Voltaren 1 % topical gel RxNorm: 123951 1 Application TOP TID as needed 12/08/2016 No Stop Date Active losartan 100 mg-hydrochlorothiazide 12.5 mg tablet RxNorm: 358234 TAKE ONE TABLET BY MOUTH DAILY 12/01/2016 02/28/2017 Inactive atenolol 100 mg tablet RxNorm: 935144 TAKE ONE TABLET BY MOUTH DAILY 12/01/2016 02/28/2017 Inactive atenolol 100 mg tablet RxNorm: 523116 1 Tablet(s) PO daily 11/30/2016 Inactive losartan 100 mg-hydrochlorothiazide 12.5 mg tablet RxNorm: 443788 1 Tablet(s) PO daily 11/01/2016 11/30/2016 Inactive atenolol 50 mg tablet RxNorm: 137747 TAKE ONE TABLET BY MOUTH DAILY 08/04/2016 10/23/2016 Inactive Cymbalta 30 mg capsule,delayed release RxNorm: 249634 TAKE ONE CAPSULE BY MOUTH DAILY 08/04/2016 12/31/2016 Inactive losartan 50 mg-hydrochlorothiazide 12.5 mg tablet RxNorm: 700710 TAKE ONE TABLET BY MOUTH DAILY 06/19/2016 10/23/2016 Inactive doxycycline hyclate 100 mg tablet RxNorm: 431500 1 Tablet(s) PO BID 06/13/2016 06/19/2016 Inactive Kenalog 40 mg/mL suspension for injection RxNorm: 2896635 Milliliter(s) Inj 06/13/2016 06/13/2016 Inactive atenolol 50 mg tablet RxNorm: 294607 1 Tablet(s) PO daily 201511/09/2015 Inactive atenolol 50 mg tablet RxNorm: 546822 1 Tablet(s) PO daily 201505/07/2016 Inactive Cymbalta 30 mg capsule,delayed release RxNorm: 426812 TAKE ONE CAPSULE BY MOUTH DAILY 09/16/2015 03/13/2016 Inactive losartan 50 mg-hydrochlorothiazide 12.5 mg tablet RxNorm: 360902 TAKE ONE TABLET BY MOUTH DAILY 08/06/2015 02/01/2016 Inactive Cymbalta 30 mg capsule,delayed release RxNorm: 798761 TAKE ONE CAPSULE BY MOUTH DAILY 06/28/2015 08/26/2015 Inactive losartan 50 mg-hydrochlorothiazide 12.5 mg tablet RxNorm: 375042 1 Tablet(s) PO daily 05/05/2015 07/03/2015 Inactive Cymbalta 60 mg capsule,delayed release RxNorm: 365740 1 Capsule(s) PO QHS 03/15/2015 07/11/2015 Inactive Cymbalta 30 mg capsule,delayed release RxNorm: 354780 1 Capsule(s) PO daily 01/11/2015 04/10/2015 Inactive Cymbalta 60 mg capsule,delayed release RxNorm: 639036 1 Capsule(s) PO QHS please call office for appointment 11/23/2014 Inactive Cymbalta 60 mg capsule,delayed release RxNorm: 319144 1 Capsule(s) PO QHS please call office for appointment 11/23/2014 Inactive simvastatin 20 mg tablet RxNorm: 911766 1 Tablet(s) PO daily No Start Date Active metformin 500 mg tablet RxNorm: 099949 2 Tablet(s) PO BID No Start Date Active glimepiride 4 mg tablet RxNorm: 379565 2 Tablet(s) PO daily No Start Date 11/08/2017 Inactive Lantus 100 unit/mL subcutaneous solution RxNorm: 307820 12 Unit(s) SQ QHS No Start Date 01/21/2017 Inactive atenolol oral RxNorm: 1202 oral No Start Date 12/14/2015 Inactive Bydureon 2 mg/0.65 mL subcutaneous pen injector RxNorm: 2254052 Milliliter(s) SQ weekly No Start Date 12/13/2015 Inactive losartan 50 mg-hydrochlorothiazide 12.5 mg tablet RxNorm: 828813 1 Tablet(s) PO daily No Start Date 05/04/2015 Inactive Trulicity 0.75 mg/0.5 mL subcutaneous pen injector RxNorm: 5477407 Milliliter(s) SQ QW No Start Date 07/02/2017 Inactive Medication Administered Medication Codes Instructions Start Date Status ceftriaxone 500 mg solution for injection RxNorm: 8037565 1Milliliter 01/09/2017 No longer Active Kenalog 40 mg/mL suspension for injection RxNorm: 5584249 Milliliter 06/13/2016 No longer Active Immunizations No [...] Item Code Result Date C A/B FLU 5829196 Influenza A Scr Negative 07/03/2017 C A/B FLU 6234576 Influenza B Scr Negative 07/03/2017 C A/B FLU 9957692 Influenza Intrp B AG: PRID:PT:NOSE:NOM:IF See Footnote [...] CPT-4: J3301 06/13/2016 DESTRUCT PREMALG LESION CPT-4: 67028 12/14/2015 Vital Signs Date Vital 04/05/2018 Blood Pressure 1: 140/66 Code : 8480-6 BMI: 38.1 Code : 01311-4 Heart Rate 1 : 73 bpm Height: 5'7" SpO2: 98% Weight: 243 lbs 11/09/2017 Blood Pressure 1: 118/70 Code : 8480-6 BMI: 37.6 Code : 08780-7 Heart Rate 1 : 78 bpm Height: 5'7" SpO2: 99% Weight: 240 lbs 07/03/2017 Blood Pressure 1: 130/72 Code : 8480-6 BMI: 38.1 Code : 56525-3 Heart Rate 1 : 78 bpm Height: 5'7" SpO2: 97% Temperature: 36.3 (C) / 97.4 (F) Weight: 243 lbs 03/30/2017 Blood Pressure 1: 124/74 Code : 8480-6 BMI: 38.5 Code : 56898-7 Heart Rate 1 : 80 bpm Height: 5'7" SpO2: 97% Weight: 246 lbs 01/09/2017 Blood Pressure 1: 148/80 Code : 8480-6 BMI: 38.7 Code : 01290-0 Heart Rate 1 : 80 bpm Height: 5'7" SpO2: 97% Weight: 247 lbs 12/20/2016 Blood Pressure 1: 136/74 Code : 8480-6 Heart Rate 1: 78 bpm Height: SpO2: 98% Weight: 12/08/2016 Blood Pressure 1: 136/82 Code : 8480-6 BMI: 39.0 Code : 13245-2 Heart Rate 1 : 75 bpm Height: 5'7" SpO2: 97% Weight: 249 lbs 11/30/2016 Blood Pressure 1: 150/82 Code : 8480-6 BMI: 39.0 Code : 64076-8 Heart Rate 1 : 75 bpm Height: 5'7" SpO2: 98% Weight: 249 lbs 11/01/2016 Blood Pressure 1: 136/80 Code : 8480-6 BMI: 39.8 Code : 82112-5 Heart Rate 1 : 79 bpm Height: 5'7" SpO2: 98% Weight: 254 lbs 10/18/2016 Blood Pressure 1: 142/80 Code : 8480-6 BMI: 39.0 Code : 03438-3 Heart Rate 1 : 74 bpm Height: 5'7" SpO2: 97% Weight: 249 lbs 09/29/2016 Blood Pressure 1: 136/76 Code : 8480-6 BMI: 39.2 Code : 76911-4 Heart Rate 1 : 70 bpm Height: 5'7" SpO2: 96% Weight: 250 lbs 06/13/2016 Blood Pressure 1: 178/82 Code : 8480-6 Blood Pressure 1: 152/72 Code: 8480-6 BMI: 37.7 Code: 98043-4 Heart Rate 1: 108 bpm Height: 5'7" SpO2: 97% Weight: 241 lbs 12/14/2015 Blood Pressure 1: 136/80 Code : 8480-6 BMI: 38.4 Code : 98584-4 Heart Rate 1 : 97 bpm Height: 5'7" SpO2: 98% Weight: 245 lbs 07/12/2015 Blood Pressure 1: 160/68 Code : 8480-6 Blood Pressure 1: 138/78 Code: 8480-6 BMI: 38.4 Code: 85804-5 Heart Rate 1: 96 bpm Height: 5'7" SpO2: 98% Weight: 245 lbs 01/11/2015 Blood Pressure 1: 132/84 Code : 8480-6 BMI: 39.2 Code : 54104-1 Heart Rate 1 : 86 bpm Height: [...] anxiety Triggers stress 09/29/2016 stressful job at [employer] anxiety Alleviating Factors medication 09/29/2016 [...] anxiety Triggers stress 12/14/2015 stressful job at [employer] [facility] [employer] anxiety Alleviating Factors medication 12/14/2015 [...] anxiety Triggers stress 07/12/2015 stressful job at [employer] anxiety Alleviating Factors medication 07/12/2015 decreased [...] data Encounters Encounter Performer Location Codes Date 44544 EST. PATIENT, LEVEL III Diagnosis: Other allergic rhinitis[ICD10: J30.89] Diagnosis: Acute upper respiratory infection, unspecified[ICD10: J06.9] Diagnosis: Gastro-esophageal reflux disease without esophagitis[ICD10: K21.9] Diagnosis: Rash and other nonspecific skin eruption[ICD10: R21] Camille Aguirre MD, [facility] CPT-4: 57981 04/05/2018 ([id number]) 34162 EST. PATIENT, LEVEL III Diagnosis: Pain in right knee[ICD10: M25.561] Diagnosis: Ocular pain, left eye[ICD10: H57.12] Desiree Aguirre MD, [facility] CPT-4: 63335 11/09/2017 63065 EST. PATIENT, LEVEL III Diagnosis: Other malaise[ICD10: R53.81] Diagnosis: Acute laryngopharyngitis[ICD10: J06.0] Diagnosis: Other allergic rhinitis[ICD10: J30.89] Camille Aguirre MD, [facility] CPT-4: 07218 07/03/2017 [id number]) 43975 EST. PATIENT, LEVEL III Diagnosis: Essential (primary) hypertension[ICD10: I10] Diagnosis: Type 2 diabetes mellitus without complications[ICD10: E11.9] Desiree Aguirre MD, [facility] CPT-4: 04570 03/30/2017 ([id number]) 26905 EST. PATIENT, LEVEL III Diagnosis: Cough[ICD10: R05] Diagnosis: Acute upper respiratory infection, unspecified[ICD10: J06.9] Desiree Aguirre MD, [facility] CPT-4: 12639 01/09/2017 32249 EST. PATIENT, LEVEL III Diagnosis: Pain in right knee[ICD10: M25.561] Diagnosis: Other instability, right knee[ICD10: M25.361] Camille Aguirre MD, [facility] CPT-4: 03935 12/20/2016 65716 EST. PATIENT, LEVEL III Diagnosis: Pain in right knee[ICD10: M25.561] Camille Aguirre MD, [facility] CPT-4: 83796 12/08/2016 43073 EST. PATIENT, LEVEL III Diagnosis: Essential (primary) hypertension[ICD10: I10] Camille Aguirre MD, [facility] CPT-4: 34202 11/30/2016 02855 EST. PATIENT, LEVEL IV Diagnosis: Essential (primary) hypertension[ICD10: I10] Camille Aguirre MD, [facility] CPT-4: 80345 11/01/2016 19846 EST. PATIENT, LEVEL III Diagnosis: Essential (primary) hypertension[ICD10: I10] Camille Aguirre MD, [facility] CPT-4: 01139 10/18/2016 ([id number]) 51296 EST. PATIENT, LEVEL IV Diagnosis: Essential (primary) hypertension[ICD10: I10] Diagnosis: Type 2 diabetes mellitus without complications[ICD10: E11.9] Diagnosis: Mixed hyperlipidemia[ICD10: E78.2] Desiree Aguirre MD, [facility] CPT-4: 10946 09/29/2016 ([id number]) 77874 EST. PATIENT, LEVEL III Diagnosis: Essential (primary) hypertension[ICD10: I10] Diagnosis: Cough[ICD10: R05] Diagnosis: Acute recurrent maxillary sinusitis[ICD10: J01.01] Desiree Aguirre MD, [facility] CPT-4: 95884 06/13/2016 ([id number]) 77513 EST. PATIENT, LEVEL III Diagnosis: Type 2 diabetes mellitus without complications[ICD10: E11.9] Diagnosis: Essential (primary) hypertension[ICD10: I10] Diagnosis: Actinic keratosis[ICD10: L57.0] Desriee Aguirre MD, [facility] CPT-4: 72117 12/14/2015 ([id number]) 53058 EST. PATIENT, LEVEL IV Diagnosis: Essential (primary) hypertension[ICD10: I10] Diagnosis: Type 2 diabetes mellitus without complications[ICD10: E11.9] Diagnosis: Mixed hyperlipidemia[ICD10: E78.2] [facility] CPT-4: 58414 07/12/2015 ([id number]) OFFICE VISIT, NEW - LEVEL 4 Diagnosis: ESSENTIAL HYPERTENSION[ICD9: 401.9] Diagnosis: DIABETES TYPE II[ICD9: 250.00] Diagnosis: HYPERLIPIDEMIA[ICD9: 272.4] Diagnosis: ANXIETY STATE[ICD9: 300.00] [facility] CPT-4: 47923 01/11/2015 Plan of Care Planned Activity Notes [...] warmth, discharge. 04/05/2018 Appointment: Camille Hanna WPtel: [address] [place], [place] [address] (15 min) Moderate 04/05/2018 Patient Education: Patient Medication Summary Completed 04/05/2018 Visit Plan: Right knee pain-swelling -DJD-patient to get knee brace Left lower eyelid swelling/drainage-rx for eye drops sent electronically and instructed patient on use -instructed patient to call if symptoms do not resolve or if any worse 11/09/2017 Appointment: Desiree Hernandez WPtel: [address] [place], [place] [phone] (15 min) Moderate 11/09/2017 Patient Education: Patient [...] allergy spray. 07/03/2017 Appointment: Camille Hanna WPtel: [facility] (15 min) Moderate 07/03/2017 Patient Education: [...] Hsu in 03/30/2017 Appointment: Desiree Hernandez WPtel: [address] [place], [place] [phone] (30 min) Complex 03/30/2017 Patient Education: Patient Medication Summary Completed 03/30/2017 Patient Education: Hypertension Completed 03/30/2017 Visit Plan: URI - Pt advised to increase fluids, vitamin C. Discussed natural and expected course of this diagnosis and need to alert me if symptoms do not follow expected course, or if any worse. RX sent to patient' s pharmacy. 01/09/2017 Appointment: Desiree Hernandez WPtel: [address] [place], [place] [id number] [place] (15 min) Moderate 01/09/2017 Patient Education: [...] not improve. 12/20/2016 Appointment: [facility]Ptel[facility] [place] (15 min) Moderate 12/20/2016 Patient Education: Patient Medication Summary Completed 12/20/2016 Care Plan: Referral Order SNOMED-CT : [id number] Pending 12/20/2016 Visit Plan: Right knee pain - pt is to use RICE - Rest, Ice , Compression, Elevation - The pt is to use prn antiinflammatories to manage acute pain. The patient is to call the office if the pain is worsening or does not improve. 12/08/2016 App[facility]ment: [facility] [phone] [facility] [place] (30 min) Complex 12/08/2016 Patient Education: [...] at home. 11/30/2016 Appointment: Cam[facility] Hanna WPtel[facility] [place] (15 min) Moderate 11/30/2016 Patient Education: [...] acute concerns. 11/01/2016 Appointment: Cam[facility] Hanna WPtel[facility] (15 min) Moderate 11/01/2016 Patient Education: Patient [...] to medications. 09/29/2016 Appointment: Desiree Hernandez WPtel: [address] [place] [phone] (15 min) Moderate 09/29/2016 Patient Education: Patient Medication Summary Completed 09/29/2016 Visit Plan: HTN-elevated today but she didn't take her blood pressure medications today-get new blood pressure machine-monitor blood pressure and pulse at home and call if readings consistently 140/90. Patient verbalized understanding of plan. Ucrki-ytuozdaop-pjiocyuclc - Pt has acute infection - Pt informed to use decongestant, RX given to patient, kenalog injection today in the office-start daily anti histamine such as jacki. Call if symptoms do not show improvement. 06/13/2016 Appointment: Desiree Hernandez WPtel: [facility] [address] (15 min) Moderate 06/13/2016 Patient Education: Patient Medication Summary Completed 06/13/2016 Appointment: Desiree Hernandez WPtel: [facility] [address] (30 min) Complex 03/14/2016 Visit Plan: [...] acute concerns. 12/14/2015 Appointment: Desiree Hernandez WPtel: [facility] [phone] (30 min) [facility] 12/14/2015 Patient Education: Patient Medication Summary [...] Care Plan: COMPLETE CBC AUTOMATED LOINC : 96349-4 Ordered 07/12/2015 Visit Plan: Hypertension - well [...] Care Plan: COMPLETE CBC AUTOMATED LOINC : 26505-6 Ordered 01/11/2015 Referral: Sekou Hollingsworth Referral Initiated [...] pt is to call for acute concerns. [place] - if voltaren gel is too expensive. [...] consistently 140/90. Patient verbalized understanding of plan. Fauhh-mwjvqcyiv-gndprwzfmf - Pt has acute infection - Pt [...] pt is to call for acute concerns. [place] balm to left shoulder-call if pain does [...]
--- OUTSIDE RECORDS SUMMARY | 2018-05-31 09:20 | XMS REPORT | CCD ---
Author Author [facility] Address [address] [place] [address] Phone Care Team Providers Care National Account Manager Name Role Phone PP Unavailable CCM Unavailable Summary Purpose Interface Exchange Insurance Providers Payer name Policy type / Coverage type Covered libertarian ID Effective Begin Date Effective End Date [facility] Blue Cross/Blue 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[address]: 7990461 Quit over 10 years ago 01/11/2015 Number [...] Codes Condition Status Onset Date Resolved Date Ocular pain, left eye ICD-9: 379.91 ICD-10: H57.12 Active 11/09/2017 Unknown Pain in right knee ICD -9: 719.46 ICD-10: M25.561 Active 12/08/2016 Unknown Acute laryngopharyngitis ICD-9: 465.0 ICD-10: J06.0 Active 07/03/2017 Unknown Other allergic rhinitis ICD-9: 477.8 ICD-10: J30.89 Active 07/03/2017 Unknown Other malaise ICD-9: 780.79 ICD-10: R53.81 Active 07/03/2017 Unknown Essential (primary) hypertension ICD-9: 401.9 ICD-10: I10 Active 06/12/2016 Unknown Type 2 diabetes mellitus without complications ICD-9: 250.00 ICD-10: E11.9 Active 12/13/2015 Unknown Acute upper respiratory infection, unspecified ICD-9: 465.9 ICD-10: J06.9 Active 01/09/2017 Unknown Cough ICD-9: 786.2 ICD-10: R05 Active [...] Problems Condition Codes Effective Dates Condition Status Ocular pain, left eye ICD-9: 379.91 ICD-10: H57.12 11/09/2017 Active Pain in right knee ICD -9: 719.46 ICD-10: M25.561 12/08/2016 Active Acute laryngopharyngitis ICD-9: 465.0 ICD-10: J06.0 07/03/2017 Active Other allergic rhinitis ICD-9: 477.8 ICD-10: J30.89 07/03/2017 Active Other malaise ICD-9: 780.79 ICD-10: R53.81 07/03/2017 Active Essential (primary) hypertension ICD-9: 401.9 ICD-10: I10 06/12/2016 Active Type 2 diabetes mellitus without complications ICD-9: 250.00 ICD-10: E11.9 12/13/2015 Active Acute upper respiratory infection, unspecified ICD-9: 465.9 ICD-10: J06.9 01/09/2017 Active Cough ICD-9: 786.2 ICD-10: R05 06/12/2016 [...] Start Date Stop Date Status Fill Instructions atenolol 100 mg tablet RxNorm: 893533 TAKE ONE TABLET BY MOUTH DAILY 01/25/2018 07/18/2019 Active glimepiride 4 mg tablet RxNorm: 997727 1 Tablet(s) PO daily -Managed by Dr. Hsu 11/09/2017 No Stop Date Active gentamicin 0.3 % eye drops RxNorm: 235036 2 Drop(s) ophthalmic (eye) QID 11/09/2017 11/15/2017 Inactive atenolol 100 mg tablet RxNorm: 054973 1 Tablet(s) PO daily TAKE ONE TABLET BY MOUTH DAILY 08/01/2017 01/24/2018 Inactive Cymbalta 30 mg capsule,delayed release RxNorm: 422052 TAKE ONE CAPSULE BY MOUTH DAILY 07/30/2017 01/25/2018 Inactive losartan 100 mg-hydrochlorothiazide 12.5 mg tablet RxNorm: 977867 TAKE ONE TABLET BY MOUTH DAILY 07/30/2017 01/25/2018 Inactive Trulicity 1.5 mg/0.5 mL subcutaneous pen injector RxNorm: 7592527 1 injection SQ QW -Managed by Dr. Hsu 07/03/2017 No Stop Date Active Zithromax Z-Vignesh 250 mg tablet RxNorm: 185005 1 Tablet(s) PO UD 07/03/2017 07/29/2017 Inactive Cymbalta 30 mg capsule,delayed release RxNorm: 238048 TAKE ONE CAPSULE BY MOUTH DAILY 03/12/2017 07/09/2017 Inactive losartan 100 mg-hydrochlorothiazide 12.5 mg tablet RxNorm: 183012 TAKE ONE TABLET BY MOUTH DAILY 03/07/2017 07/04/2017 Inactive Diflucan 150 mg tablet RxNorm: 329436 1 Tablet(s) PO daily 12/201601/21/2017 Inactive Diflucan 150 mg tablet RxNorm: 383970 1 Tablet(s) PO daily 12/201601/14/2017 Inactive ceftriaxone 500 mg solution for injection RxNorm: 9168103 1 Milliliter(s) Inj 01/09/2017 01/09/2017 Inactive Augmentin 875 mg-125 mg tablet RxNorm: 442729 1 Tablet(s) PO BID 01/09/2017 01/15/2017 Inactive Voltaren 1 % topical gel RxNorm: 965877 1 Application TOP TID as needed 12/08/2016 No Stop Date Active losartan 100 mg-hydrochlorothiazide 12.5 mg tablet RxNorm: 228505 TAKE ONE TABLET BY MOUTH DAILY 12/01/2016 02/28/2017 Inactive atenolol 100 mg tablet RxNorm: 645301 TAKE ONE TABLET BY MOUTH DAILY 12/01/2016 02/28/2017 Inactive atenolol 100 mg tablet RxNorm: 945506 1 Tablet(s) PO daily 11/30/2016 Inactive losartan 100 mg-hydrochlorothiazide 12.5 mg tablet RxNorm: 681697 1 Tablet(s) PO daily 11/01/2016 11/30/2016 Inactive atenolol 50 mg tablet RxNorm: 573089 TAKE ONE TABLET BY MOUTH DAILY 08/04/2016 10/23/2016 Inactive Cymbalta 30 mg capsule,delayed release RxNorm: 827838 TAKE ONE CAPSULE BY MOUTH DAILY 08/04/2016 12/31/2016 Inactive losartan 50 mg-hydrochlorothiazide 12.5 mg tablet RxNorm: 734024 TAKE ONE TABLET BY MOUTH DAILY 06/19/2016 10/23/2016 Inactive doxycycline hyclate 100 mg tablet RxNorm: 440077 1 Tablet(s) PO BID 06/13/2016 06/19/2016 Inactive Kenalog 40 mg/mL suspension for injection RxNorm: 2472988 Milliliter(s) Inj 06/13/2016 06/13/2016 Inactive atenolol 50 mg tablet RxNorm: 977597 1 Tablet(s) PO daily 201511/09/2015 Inactive atenolol 50 mg tablet RxNorm: 768646 1 Tablet(s) PO daily 201505/07/2016 Inactive Cymbalta 30 mg capsule,delayed release RxNorm: 397315 TAKE ONE CAPSULE BY MOUTH DAILY 09/16/2015 03/13/2016 Inactive losartan 50 mg-hydrochlorothiazide 12.5 mg tablet RxNorm: 064708 TAKE ONE TABLET BY MOUTH DAILY 08/06/2015 02/01/2016 Inactive Cymbalta 30 mg capsule,delayed release RxNorm: 115924 TAKE ONE CAPSULE BY MOUTH DAILY 06/28/2015 08/26/2015 Inactive losartan 50 mg-hydrochlorothiazide 12.5 mg tablet RxNorm: 370507 1 Tablet(s) PO daily 05/05/2015 07/03/2015 Inactive Cymbalta 60 mg capsule,delayed release RxNorm: 124174 1 Capsule(s) PO QHS 03/15/2015 07/11/2015 Inactive Cymbalta 30 mg capsule,delayed release RxNorm: 985629 1 Capsule(s) PO daily 01/11/2015 04/10/2015 Inactive Cymbalta 60 mg capsule,delayed release RxNorm: 723683 1 Capsule(s) PO QHS please call office for appointment 11/23/2014 Inactive Cymbalta 60 mg capsule,delayed release RxNorm: 313009 1 Capsule(s) PO QHS please call office for appointment 11/23/2014 Inactive simvastatin 20 mg tablet RxNorm: 654429 1 Tablet(s) PO daily No Start Date Active metformin 500 mg tablet RxNorm: 096162 2 Tablet(s) PO BID No Start Date Active glimepiride 4 mg tablet RxNorm: 241349 2 Tablet(s) PO daily No Start Date 11/08/2017 Inactive Lantus 100 unit/mL subcutaneous solution RxNorm: 069601 12 Unit(s) SQ QHS No Start Date 01/21/2017 Inactive atenolol oral RxNorm: 1202 oral No Start Date 12/14/2015 Inactive Bydureon 2 mg/0.65 mL subcutaneous pen injector RxNorm: 9689973 Milliliter(s) SQ weekly No Start Date 12/13/2015 Inactive losartan 50 mg-hydrochlorothiazide 12.5 mg tablet RxNorm: 147441 1 Tablet(s) PO daily No Start Date 05/04/2015 Inactive Trulicity 0.75 mg/0.5 mL subcutaneous pen injector RxNorm: 8378411 Milliliter(s) SQ QW No Start Date 07/02/2017 Inactive Medication Administered Medication Codes Instructions Start Date Status ceftriaxone 500 mg solution for injection RxNorm: 9798090 1Milliliter 01/09/2017 No longer Active Kenalog 40 mg/mL suspension for injection RxNorm: 7884400 Milliliter 06/13/2016 No longer Active Immunizations No Immunization data Assessments Condition Codes Effective Dates Pain in right knee ICD-10: M25.561 ICD-9: 719.46 11/09/2017 Ocular pain, left eye ICD-10: H57.12 ICD-9: 379.91 11/09/2017 Acute laryngopharyngitis ICD-10: J06.0 ICD-9: 465.0 07/03/2017 Other malaise ICD-10: R53.81 ICD-9: 780.79 07/03/2017 Other allergic rhinitis ICD-10: J30.89 ICD-9: 477.8 07/03/2017 Type 2 diabetes mellitus without complications ICD-10: E11.9 ICD-9: 250.00 03/30/2017 Essential (primary) hypertension ICD-10: I10 ICD-9: 401.9 03/30/2017 Acute upper respiratory infection, unspecified ICD-10: J06.9 ICD-9: 465.9 01/09/2017 Cough ICD-10: R05 ICD-9: 786.2 01/09/2017 Other [...] Visit Reason For Visit Effective Dates Notes eyelid edema 11/09/2017 cough 07/03/2017 hypertension 03/30/2017 earache 01/09/2017 knee pain 12/20/2016 knee pain 12/08/2016 hypertension 11/30/2016 medication follow up 11/01/2016 hypertension 10/18/2016 anxiety 09/29/2016 sinus congestion 06/13/2016 skin lesion 12/14/2015 anxiety 07/12/2015 anxiety 01/11/2015 Results Observation Observation Code Item Item Code Result Date C A/B FLU 2402855 Influenza A Scr Negative 07/03/2017 C A/B FLU 4564843 Influenza B Scr Negative 07/03/2017 C A/B FLU 3387124 Influenza Intrp B AG: PRID:PT:NOSE:NOM:IF See Footnote 07/03/2017 Review of Systems System Result Effective Dates Constitutional recent illness 11/09/2017 Constitutional No anorexia [...] Result Effective Dates Notes Full Exam - General 1995 Constitutional general appearance Overall: well developed 11/09/2017 [...] CPT-4: J3301 06/13/2016 DESTRUCT PREMALG LESION CPT-4: 06700 12/14/2015 Vital Signs Date Vital 11/09/2017 Blood Pressure 1: 118/70 Code : 8480-6 BMI: 37.6 Code : 90961-1 Heart Rate 1 : 78 bpm Height: 5'7" SpO2: 99% Weight: 240 lbs 07/03/2017 Blood Pressure 1: 130/72 Code : 8480-6 BMI: 38.1 Code : 81711-6 Heart Rate 1 : 78 bpm Height: 5'7" SpO2: 97% Temperature: 36.3 (C) / 97.4 (F) Weight: 243 lbs 03/30/2017 Blood Pressure 1: 124/74 Code : 8480-6 BMI: 38.5 Code : 82374-5 Heart Rate 1 : 80 bpm Height: 5'7" SpO2: 97% Weight: 246 lbs 01/09/2017 Blood Pressure 1: 148/80 Code : 8480-6 BMI: 38.7 Code : 29074-0 Heart Rate 1 : 80 bpm Height: 5'7" SpO2: 97% Weight: 247 lbs 12/20/2016 Blood Pressure 1: 136/74 Code : 8480-6 Heart Rate 1: 78 bpm Height: SpO2: 98% Weight: 12/08/2016 Blood Pressure 1: 136/82 Code : 8480-6 BMI: 39.0 Code : 50098-5 Heart Rate 1 : 75 bpm Height: 5'7" SpO2: 97% Weight: 249 lbs 11/30/2016 Blood Pressure 1: 150/82 Code : 8480-6 BMI: 39.0 Code : 57483-6 Heart Rate 1 : 75 bpm Height: 5'7" SpO2: 98% Weight: 249 lbs 11/01/2016 Blood Pressure 1: 136/80 Code : 8480-6 BMI: 39.8 Code : 37213-6 Heart Rate 1 : 79 bpm Height: 5'7" SpO2: 98% Weight: 254 lbs 10/18/2016 Blood Pressure 1: 142/80 Code : 8480-6 BMI: 39.0 Code : 14630-3 Heart Rate 1 : 74 bpm Height: 5'7" SpO2: 97% Weight: 249 lbs 09/29/2016 Blood Pressure 1: 136/76 Code : 8480-6 BMI: 39.2 Code : 41562-7 Heart Rate 1 : 70 bpm Height: 5'7" SpO2: 96% Weight: 250 lbs 06/13/2016 Blood Pressure 1: 178/82 Code : 8480-6 Blood Pressure 1: 152/72 Code: 8480-6 BMI: 37.7 Code: 03536-7 Heart Rate 1: 108 bpm Height: 5'7" SpO2: 97% Weight: 241 lbs 12/14/2015 Blood Pressure 1: 136/80 Code : 8480-6 BMI: 38.4 Code : 45324-5 Heart Rate 1 : 97 bpm Height: 5'7" SpO2: 98% Weight: 245 lbs 07/12/2015 Blood Pressure 1: 160/68 Code : 8480-6 Blood Pressure 1: 138/78 Code: 8480-6 BMI: 38.4 Code: 46547-2 Heart Rate 1: 96 bpm Height: 5'7" SpO2: 98% Weight: 245 lbs 01/11/2015 Blood Pressure 1: 132/84 Code : 8480-6 BMI: 39.2 Code : 49701-1 Heart Rate 1 : 86 bpm Height: 5'7" SpO2: 98% Weight: 250 lbs Functional Status No Functional Status data History of Present Illness Symptom Name Status Result Effective Date Notes eyelid edema Location on the left eyelid [...] anxiety Triggers stress 09/29/2016 stressful job at [employer] anxiety Alleviating Factors medication 09/29/2016 decreased [...] anxiety Triggers stress 12/14/2015 stressful job at [employer] anxiety Alleviating Factors medication 12/14/2015 decreased [...] anxiety Triggers stress 07/12/2015 stressful job at [employer] anxiety Alleviating Factors medication 07/12/2015 decreased [...] data Encounters Encounter Performer Location Codes Date ([id number]) 11617 EST. PATIENT, LEVEL III Diagnosis: Pain in right knee[ICD10: M25.561] Diagnosis: Ocular pain, left eye[ICD10: H57.12] Desiree Aguirre MD, [facility] CPT-4: 92961 11/09/2017 62398 EST. PATIENT, LEVEL III Diagnosis: Other malaise[ICD10: R53.81] Diagnosis: Acute laryngopharyngitis[ICD10: J06.0] Diagnosis: Other allergic rhinitis[ICD10: J30.89] [facility] CPT-4: 19953 07/03/2017 ([id number]) 60394 EST. PATIENT, LEVEL III Diagnosis: Essential (primary) hypertension[ICD10: I10] Diagnosis: Type 2 diabetes mellitus without complications[ICD10: E11.9] [facility]e [facility] CPT-4: 30720 03/30/2017 ([id number]) 32289 EST. PATIENT, LEVEL III Diagnosis: Cough[ICD10: R05] Diagnosis: Acute upper respiratory infection, unspecified[ICD10: J06.9] Desiree Aguirre MD, [facility] CPT-4: 63683 01/09/2017 38760 EST. PATIENT, LEVEL III Diagnosis: Pain in right knee[ICD10: M25.561] Diagnosis: Other instability, right knee[ICD10: M25.361] Camille Aguirre MD, [facility] CPT-4: 22535 12/20/2016 29205 EST. PATIENT, LEVEL III Diagnosis: Pain in right knee[ICD10: M25.561] Camille Aguirre MD, [facility] CPT-4: 31992 12/08/2016 37414 EST. PATIENT, LEVEL III Diagnosis: Essential (primary) hypertension[ICD10: I10] Camille Aguirre MD, [facility] CPT-4: 04211 11/30/2016 95341 EST. PATIENT, LEVEL IV Diagnosis: Essential (primary) hypertension[ICD10: I10] Camille Aguirre MD, [facility] CPT-4: 07608 11/01/2016 37728 EST. PATIENT, LEVEL III Diagnosis: Essential (primary) hypertension[ICD10: I10] Camille Aguirre MD, [facility] CPT-4: 77830 10/18/2016 ([id number]) 01798 EST. PATIENT, LEVEL IV Diagnosis: Essential (primary) hypertension[ICD10: I10] Diagnosis: Type 2 diabetes mellitus without complications[ICD10: E11.9] Diagnosis: Mixed hyperlipidemia[ICD10: E78.2] Desiree Aguirre MD, [facility] CPT-4: 32000 09/29/2016 ([id number]) 68964 EST. PATIENT, LEVEL III Diagnosis: Essential (primary) hypertension[ICD10: I10] Diagnosis: Cough[ICD10: R05] Diagnosis: Acute recurrent maxillary sinusitis[ICD10: J01.01] Desiree Aguirre MD, [facility] CPT-4: 16968 06/13/2016 ([id number]) 13337 EST. PATIENT, LEVEL III Diagnosis: Type 2 diabetes mellitus without complications[ICD10: E11.9] Diagnosis: Essential (primary) hypertension[ICD10: I10] Diagnosis: Actinic keratosis[ICD10: L57.0] Desiree Aguirre [facility] CPT-4: 73440 12/14/2015 ([id number]) 19776 EST. PATIENT, LEVEL IV Diagnosis: Essential (primary) hypertension[ICD10: I10] Diagnosis: Type 2 diabetes mellitus without complications[ICD10: E11.9] Diagnosis: Mixed hyperlipidemia[ICD10: E78.2] [facility] CPT-4: 22502 07/12/2015 ([id number]) OFFICE VISIT, NEW - LEVEL 4 Diagnosis: ESSENTIAL HYPERTENSION[ICD9: 401.9] Diagnosis: DIABETES TYPE II[ICD9: 250.00] Diagnosis: HYPERLIPIDEMIA[ICD9: 272.4] Diagnosis: ANXIETY STATE[ICD9: 300.00] Des[facility]e [facility] CPT-4: 51339 01/11/2015 Plan of Care Planned Activity Notes Codes Status Date Visit Plan: Right knee pain-swelling -DJD-patient to get knee brace Left lower eyelid swelling/drainage-rx for eye drops sent electronically and instructed patient on use -instructed patient to call if symptoms do not resolve or if any worse 11/09/2017 Appointment: Desiree Hernandez WPtel: [phone] (15 min) Moderate 11/09/2017 Patient Education: Patient [...] allergy spray. 07/03/2017 Appointment: [facility]el[facility] ([facility] min) Moderate 07/03/2017 Patient Education: Patient [...] Hsu in 03/30/2017 Appointment: Desiree Hernandez WPtel: [phone] [phone] [place] (30 min) Complex 03/30/2017 Patient Education: Patient Medication Summary Completed 03/30/2017 Patient Education: Hypertension Completed 03/30/2017 Visit Plan: URI - Pt advised to increase fluids, vitamin C. Discussed natural and expected course of this diagnosis and need to alert me if symptoms do not follow expected course, or if any worse. RX sent to patient' s pharmacy. 01/09/2017 Appointment: Desiree Hernandez WPtel: [phone] [phone] [place] (15 min) Moderate 01/09/2017 Patient Education: [...] not improve. 12/20/2016 Appointment[phone] [facility] [place] (15 min) Moderate 12/20/2016 Patient Education: Patient Medication Summary Completed 12/20/2016 Care Plan: Referral Order SNOMED-CT : [id number] Pending 12/20/2016 Visit Plan: Right knee pain - pt is to use RICE - Rest, Ice , Compression, Elevation - The pt is to use prn antiinflammatories to manage acute pain. The patient is to call the office if the pain is worsening or does not improve. 12/08/2016 Appointment: Camille Hanna WPtel: [phone] [phone] (30 min) Complex 12/08/2016 Patient Education: Patient [...] at home. 11/30/2016 Appointment: Camille Hanna WPtel: [phone] [phone] (15 min) Moderate 11/30/2016 Patient Education: Patient [...] concerns. 11/01/2016 Appointment: Camille Hanna WPtel: [phone] [phone] (15 min) Moderate 11/01/2016 Patient Education: Patient [...] to medications. 09/29/2016 Appointment: Desiree Hernandez WPtel: [facility] (15 min) Moderate 09/29/2016 Patient Education: Patient Medication Summary Completed 09/29/2016 Visit Plan: HTN-elevated today but she didn't take her blood pressure medications today-get new blood pressure machine-monitor blood pressure and pulse at home and call if readings consistently 140/90. Patient verbalized understanding of plan. Fyaxo-ksbmiywyn-pjhtdbbzlk - Pt has acute infection - Pt informed to use decongestant, RX given to patient, kenalog injection today in the office-start daily anti histamine such as jacki. Call if symptoms do not show improvement. 06/13/2016 Appointment: Desiree Hernandez WPtel: [facility] [phone] (15 min) Moderate 06/13/2016 Patient Education: Patient Medication Summary Completed 06/13/2016 Appointment: Desiree Hernandez WPtel: [phone] (30 min) Complex 03/14/2016 Visit Plan: Hypertension [...] acute concerns. 12/14/2015 Appointment: [facility]ire[facility] Hernandez [facility]Ptel[phone] (30 min) Complex 12/14/2015 Patient Education: Patient [...] Care Plan: COMPLETE CBC AUTOMATED LOINC : 80969-8 Ordered 07/12/2015 Visit Plan: Hypertension - well [...] Care Plan: COMPLETE CBC AUTOMATED LOINC : 94347-5 Ordered 01/11/2015 Referral: Sekou Hollingsworth Referral Initiated [...] pt is to call for acute concerns. [place] - if voltaren gel is too expensive. [...] consistently 140/90. Patient verbalized understanding of plan. Qkmdb-wkttsuibe-izzepqwfqm - Pt has acute infection - Pt [...] in blood pressure readings at home. . Hypertension - uncontrolled - the patient's [...] pt is to call for acute concerns. [place] to left shoulder-call if pain does [...]
--- OUTSIDE RECORDS SUMMARY | 2018-05-31 09:21 | XMS REPORT | CCD ---
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 01/11/[address]: 6979827 Quit over 10 years ago 01/11/2015 Number of years using tobacco Unknown 10 - 20 01/11/2015 Number of cigarettes/day Unknown 20 (One Pack) 01/11/2015 Alcohol history Unknown occasionally drinks alcohol 01/11/2015 Allergies, Adverse Reactions, Alerts Allergies, Adverse Reactions, Alerts data not found Past Medical History Illness Codes Condition Status [...] ICD-9: 718.86 ICD-10: M25.361 Active 12/20/2016 Unknown Pain in right knee ICD -9: 719.46 ICD-10: M25.561 Active 12/08/2016 Unknown Mixed hyperlipidemia ICD-9: 272.4 ICD-10: E78.2 [...] knee ICD-9: 718.86 ICD-10: M25.361 12/20/2016 Active Pain in right knee ICD -9: 719.46 ICD-10: M25.561 12/08/2016 Active Mixed hyperlipidemia ICD-9: 272.4 ICD-10: E78.2 [...] Start Date Stop Date Status Fill Instructions Zithromax Z-Vignesh 250 mg tablet RxNorm: 551506 1 Tablet(s) PO UD 07/03/2017 No Stop Date Active Trulicity 1.5 mg/0.5 mL subcutaneous pen injector RxNorm: 5003565 1 injection SQ QW -Managed by Dr. Hsu 07/03/2017 No Stop Date Active Cymbalta 30 mg capsule,delayed release RxNorm: 380333 TAKE ONE CAPSULE BY MOUTH DAILY 03/12/2017 07/09/2017 Active losartan 100 mg-hydrochlorothiazide 12.5 mg tablet RxNorm: 071247 TAKE ONE TABLET BY MOUTH DAILY 03/07/2017 07/04/2017 Active Diflucan 150 mg tablet RxNorm: 607276 1 Tablet(s) PO daily 12/201601/21/2017 Inactive Diflucan 150 mg tablet RxNorm: 342363 1 Tablet(s) PO daily 12/201601/14/2017 Inactive ceftriaxone 500 mg solution for injection RxNorm: 2811642 1 Milliliter(s) Inj 01/09/2017 01/09/2017 Inactive Augmentin 875 mg-125 mg tablet RxNorm: 959061 1 Tablet(s) PO BID 01/09/2017 01/15/2017 Inactive Voltaren 1 % topical gel RxNorm: 568855 1 Application TOP TID as needed 12/08/2016 No Stop Date Active losartan 100 mg-hydrochlorothiazide 12.5 mg tablet RxNorm: 178810 TAKE ONE TABLET BY MOUTH DAILY 12/01/2016 02/28/2017 Inactive atenolol 100 mg tablet RxNorm: 561509 TAKE ONE TABLET BY MOUTH DAILY 12/01/2016 02/28/2017 Inactive atenolol 100 mg tablet RxNorm: 010042 1 Tablet(s) PO daily 11/30/2016 Inactive losartan 100 mg-hydrochlorothiazide 12.5 mg tablet RxNorm: 634611 1 Tablet(s) PO daily 11/01/2016 11/30/2016 Inactive atenolol 50 mg tablet RxNorm: 132585 TAKE ONE TABLET BY MOUTH DAILY 08/04/2016 10/23/2016 Inactive Cymbalta 30 mg capsule,delayed release RxNorm: 245217 TAKE ONE CAPSULE BY MOUTH DAILY 08/04/2016 12/31/2016 Inactive losartan 50 mg-hydrochlorothiazide 12.5 mg tablet RxNorm: 888885 TAKE ONE TABLET BY MOUTH DAILY 06/19/2016 10/23/2016 Inactive doxycycline hyclate 100 mg tablet RxNorm: 284178 1 Tablet(s) PO BID 06/13/2016 06/19/2016 Inactive Kenalog 40 mg/mL suspension for injection RxNorm: 9849245 Milliliter(s) Inj 06/13/2016 06/13/2016 Inactive atenolol 50 mg tablet RxNorm: 952612 1 Tablet(s) PO daily 201511/09/2015 Inactive atenolol 50 mg tablet RxNorm: 390441 1 Tablet(s) PO daily 201505/07/2016 Inactive Cymbalta 30 mg capsule,delayed release RxNorm: 517996 TAKE ONE CAPSULE BY MOUTH DAILY 09/16/2015 03/13/2016 Inactive losartan 50 mg-hydrochlorothiazide 12.5 mg tablet RxNorm: 439856 TAKE ONE TABLET BY MOUTH DAILY 08/06/2015 02/01/2016 Inactive Cymbalta 30 mg capsule,delayed release RxNorm: 592781 TAKE ONE CAPSULE BY MOUTH DAILY 06/28/2015 08/26/2015 Inactive losartan 50 mg-hydrochlorothiazide 12.5 mg tablet RxNorm: 743038 1 Tablet(s) PO daily 05/05/2015 07/03/2015 Inactive Cymbalta 60 mg capsule,delayed release RxNorm: 448897 1 Capsule(s) PO Q 03/15/2015 07/11/2015 Inactive Cymbalta 30 mg capsule,delayed release RxNorm: 356984 1 Capsule(s) PO daily 01/11/2015 04/10/2015 Inactive Cymbalta 60 mg capsule,delayed release RxNorm: 938751 1 Capsule(s) PO QHS please call office for appointment 11/23/2014 Inactive Cymbalta 60 mg capsule,delayed release RxNorm: 272796 1 Capsule(s) PO QHS please call office for appointment 11/23/2014 Inactive glimepiride 4 mg tablet RxNorm: 497633 2 Tablet(s) PO daily No Start Date Active simvastatin 20 mg tablet RxNorm: 176984 1 Tablet(s) PO daily No Start Date Active metformin 500 mg tablet RxNorm: 532752 2 Tablet(s) PO BID No Start Date Active Lantus 100 unit/mL subcutaneous solution RxNorm: 065121 12 Unit(s) SQ QHS No Start Date 01/21/2017 Inactive atenolol oral RxNorm: 1202 oral No Start Date 12/14/2015 Inactive Bydureon 2 mg/0.65 mL subcutaneous pen injector RxNorm: 2886245 Milliliter(s) SQ weekly No Start Date 12/13/2015 Inactive losartan 50 mg-hydrochlorothiazide 12.5 mg tablet RxNorm: 657007 1 Tablet(s) PO daily No Start Date 05/04/2015 Inactive Trulicity 0.75 mg/0.5 mL subcutaneous pen injector RxNorm: 4245748 Milliliter(s) SQ QW No Start Date 07/02/2017 Inactive Medication Administered Medication Codes Instructions Start Date Status ceftriaxone 500 mg solution for injection RxNorm: 4278719 1Milliliter 01/09/2017 No longer Active Kenalog 40 mg/mL suspension for injection RxNorm: 2116800 Milliliter 06/13/2016 No longer Active Immunizations No Immunization data Assessments Condition Codes Effective Dates Acute laryngopharyngitis ICD-10: J06.0 ICD-9: 465.0 07/03/2017 [...] right knee ICD-10: M25.361 ICD-9: 718.86 12/20/2016 Pain in right knee ICD-10: M25.561 ICD-9: 719.46 12/20/2016 Mixed hyperlipidemia ICD-10: E78.2 ICD-9: 272.4 09/29/2016 Acute recurrent maxillary sinusitis ICD-10: J01.01 ICD-9: 461.0 06/13/2016 Actinic keratosis ICD-10: L57.0 ICD-9: 702.0 12/14/2015 ESSENTIAL HYPERTENSION ICD-9: 401.9 01/11 ANXIETY STATE ICD-9: 300.00 01/11/2015 HYPERLIPIDEMIA ICD-9: 272.4 01/11/2015 DIABETES TYPE II ICD-9: 250.00 2014 Reason For Visit Reason For Visit Effective Dates Notes cough 07/03/2017 hypertension 03/30/2017 earache 01/09/2017 knee pain 12/20/2016 knee pain 12/08/2016 hypertension 11/30/2016 medication follow up 11/01/2016 hypertension 10/18/2016 anxiety 09/29/2016 sinus congestion 06/13/2016 skin lesion 12/14/2015 anxiety 07/12/2015 anxiety 01/11/2015 Results No Results data Review of Systems System Result Effective Dates Constitutional recent illness 07/03/2017 Constitutional chills 07/03/2017 [...] CPT-4: J3301 06/13/2016 DESTRUCT PREMALG LESION CPT-4: 89784 12/14/2015 Vital Signs Date Vital 07/03/2017 Blood Pressure 1: 130/72 Code : 8480-6 BMI: 38.1 Code : 50889-8 Heart Rate 1 : 78 bpm Height: 5'7" SpO2: 97% Temperature: 36.3 (C) / 97.4 (F) Weight: 243 lbs 03/30/2017 Blood Pressure 1: 124/74 Code : 8480-6 BMI: 38.5 Code : 20844-3 Heart Rate 1 : 80 bpm Height: 5'7" SpO2: 97% Weight: 246 lbs 01/09/2017 Blood Pressure 1: 148/80 Code : 8480-6 BMI: 38.7 Code : 30133-8 Heart Rate 1 : 80 bpm Height: 5'7" SpO2: 97% Weight: 247 lbs 12/20/2016 Blood Pressure 1: 136/74 Code : 8480-6 Heart Rate 1: 78 bpm Height: SpO2: 98% Weight: 12/08/2016 Blood Pressure 1: 136/82 Code : 8480-6 BMI: 39.0 Code : 78213-7 Heart Rate 1 : 75 bpm Height: 5'7" SpO2: 97% Weight: 249 lbs 11/30/2016 Blood Pressure 1: 150/82 Code : 8480-6 BMI: 39.0 Code : 39073-4 Heart Rate 1 : 75 bpm Height: 5'7" SpO2: 98% Weight: 249 lbs 11/01/2016 Blood Pressure 1: 136/80 Code : 8480-6 BMI: 39.8 Code : 33158-8 Heart Rate 1 : 79 bpm Height: 5'7" SpO2: 98% Weight: 254 lbs 10/18/2016 Blood Pressure 1: 142/80 Code : 8480-6 BMI: 39.0 Code : 21245-6 Heart Rate 1 : 74 bpm Height: 5'7" SpO2: 97% Weight: 249 lbs 09/29/2016 Blood Pressure 1: 136/76 Code : 8480-6 BMI: 39.2 Code : 38420-4 Heart Rate 1 : 70 bpm Height: 5'7" SpO2: 96% Weight: 250 lbs 06/13/2016 Blood Pressure 1: 178/82 Code : 8480-6 Blood Pressure 1: 152/72 Code: 8480-6 BMI: 37.7 Code: 03026-9 Heart Rate 1: 108 bpm Height: 5'7" SpO2: 97% Weight: 241 lbs 12/14/2015 Blood Pressure 1: 136/80 Code : 8480-6 BMI: 38.4 Code : 91094-9 Heart Rate 1 : 97 bpm Height: 5'7" SpO2: 98% Weight: 245 lbs 07/12/2015 Blood Pressure 1: 160/68 Code : 8480-6 Blood Pressure 1: 138/78 Code: 8480-6 BMI: 38.4 Code: 43222-8 Heart Rate 1: 96 bpm Height: 5'7" SpO2: 98% Weight: 245 lbs 01/11/2015 Blood Pressure 1: 132/84 Code : 8480-6 BMI: 39.2 Code : 94328-5 Heart Rate 1 : 86 bpm Height: 5'7" SpO2: 98% Weight: 250 lbs Functional Status No Functional Status data History of Present Illness Symptom Name Status Result Effective Date Notes cough Quality acute None cough Quality intermittent [...] anxiety Triggers stress 09/29/2016 stressful job at [employer] anxiety Alleviating Factors medication 09/29/2016 decreased cymbalta [...] anxiety Triggers stress 12/14/2015 stressful job at [employer] anxiety Alleviating Factors medication 12/14/2015 decreased cymbalta [...] anxiety Triggers stress 07/12/2015 stressful job at [employer] anxiety Alleviating Factors medication 07/12/2015 decreased [...] Date EST. PATIENT, LEVEL III Diagnosis: Other malaise[ICD10: R53.81] Diagnosis: Acute laryngopharyngitis[ICD10: J06.0] Diagnosis: Other allergic rhinitis[ICD10: J30.89] Camille Aguirre MD, [facility] CPT-4: 62954 07/03/2017 ([id number]) 85949 EST. PATIENT, LEVEL III Diagnosis: Essential (primary) hypertension[ICD10: I10] Diagnosis: Type 2 diabetes mellitus without complications[ICD10: E11.9] Desiree Aguirre MD, [facility] CPT-4: 61696 03/30/2017 ([id number]) 50255 EST. PATIENT, LEVEL III Diagnosis: Cough[ICD10: R05] Diagnosis: Acute upper respiratory infection, unspecified[ICD10: J06.9] Desiree Aguirre MD, [facility] CPT-4: 18859 01/09/2017 02408 EST. PATIENT, LEVEL III Diagnosis: Pain in right knee[ICD10: M25.561] Diagnosis: Other instability, right knee[ICD10: M25.361] Camille Aguirre MD, [facility] CPT-4: 68670 12/20/2016 38328 EST. PATIENT, LEVEL III Diagnosis: Pain in right knee[ICD10: M25.561] Camille Aguirre MD, [facility] CPT-4: 34827 12/08/2016 57071 EST. PATIENT, LEVEL III Diagnosis: Essential (primary) hypertension[ICD10: I10] Camille Aguirre MD, [facility] CPT-4: 89189 11/30/2016 08159 EST. PATIENT, LEVEL IV Diagnosis: Essential (primary) hypertension[ICD10: I10] Camille Aguirre MD, [facility] CPT-4: 04529 11/01/2016 45285 EST. PATIENT, LEVEL III Diagnosis: Essential (primary) hypertension[ICD10: I10] Camille Aguirre MD, [facility] CPT-4: 01414 10/18/2016 ([id number]) 67850 EST. PATIENT, LEVEL IV Diagnosis: Essential (primary) hypertension[ICD10: I10] Diagnosis: Type 2 diabetes mellitus without complications[ICD10: E11.9] Diagnosis: Mixed hyperlipidemia[ICD10: E78.2] Desiree Aguirre MD, [facility] CPT-4: 69229 09/29/2016 ([id number]) 54085 EST. PATIENT, LEVEL III Diagnosis: Essential (primary) hypertension[ICD10: I10] Diagnosis: Cough[ICD10: R05] Diagnosis: Acute recurrent maxillary sinusitis[ICD10: J01.01] Desiree Aguirre MD, [facility] CPT-4: 37754 06/13/2016 ([id number]) 45782 EST. PATIENT, LEVEL III Diagnosis: Type 2 diabetes mellitus without complications[ICD10: E11.9] Diagnosis: Essential (primary) hypertension[ICD10: I10] Diagnosis: Actinic keratosis[ICD10: L57.0] Desiree Aguirre MD, [facility] CPT-4: 21680 12/14/2015 ([id number]) 00087 EST. PATIENT, LEVEL IV Diagnosis: Essential (primary) hypertension[ICD10: I10] Diagnosis: Type 2 diabetes mellitus without complications[ICD10: E11.9] Diagnosis: Mixed hyperlipidemia[ICD10: E78.2] Desiree Aguirre MD, [facility] CPT-4: 49234 07/12/2015 ([id number]) OFFICE VISIT, NEW - LEVEL 4 Diagnosis: ESSENTIAL HYPERTENSION[ICD9: 401.9] Diagnosis: DIABETES TYPE II[ICD9: 250.00] Diagnosis: HYPERLIPIDEMIA[ICD9: 272.4] Diagnosis: ANXIETY STATE[ICD9: 300.00] Desiree Aguirre MD, [facility] CPT-4: 45371 01/11/2015 Plan of Care Planned Activity Notes [...] in the nasal steroid allergy spray. 07/03/2017 Patient Education: Patient Medication Summary Completed 07/03/2017 Care Plan: C A/B FLU Pending 07/03/2017 Visit Plan: Hypertension - well controlled [...] Hsu in 03/30/2017 Appointment: Desiree Hernandez WPtel: [phone] (30 min) Complex 03/30/2017 Patient Education: Patient Medication Summary Completed 03/30/2017 Patient Education: Hypertension Completed 03/30/2017 Visit Plan: URI - Pt advised to increase fluids, vitamin C. Discussed natural and expected course of this diagnosis and need to alert me if symptoms do not follow expected course, or if any worse. RX sent to patient' s pharmacy. 01/09/2017 Appointment: Desiree Hernandez WPtel: [facility]5 [phone] (15 min) Moderate 01/09/2017 Patient Education: Patient [...] not improve. 12/20/2016 Appointment: Camille Hanna WPtel: [facility] [place] (15 min) Moderate 12/20/2016 Patient Education: Patient Medication Summary Completed 12/20/2016 Care Plan: Referral Order SNOMED-CT : [id number] Pending 12/20/2016 Visit Plan: Right knee pain - pt is to use RICE - Rest, Ice , Compression, Elevation - The pt is to use prn antiinflammatories to manage acute pain. The patient is to call the office if the pain is worsening or does not improve. 12/08/2016 Appointment: Camille Hanna WPtel: [facility]5 [facility] (30 min) Complex 12/08/2016 Patient Education: Patient [...] at home. 11/30/2016 Appointment: Camille Hanna WPtel: [facility]5 [facility] (15 min) Moderate 11/30/2016 Patient Education: Patient [...] acute concerns. 11/01/2016 Appointment: [facility] [phone] [facility] (15 min) Moderate 11/01/2016 Patient Education: Patient [...] to medications. 09/29/2016 Appointment: Desiree Hernandez WPtel: [address] [place], [place] [phone] (15 min) Moderate 09/29/2016 Patient Education: Patient Medication Summary Completed 09/29/2016 Visit Plan: HTN-elevated today but she didn't take her blood pressure medications today-get new blood pressure machine-monitor blood pressure and pulse at home and call if readings consistently 140/90. Patient verbalized understanding of plan. [id number] - Pt has acute infection - Pt informed to use decongestant, RX given to patient, kenalog injection today in the office-start daily anti histamine such as jacki. Call if symptoms do not show improvement. 06/13/2016 Appointment: Desiree Hernandez WPtel: [facility]3 [phone] (15 min) Moderate 06/13/2016 Patient Education: Patient Medication Summary Completed 06/13/2016 Appointment: Desiree Hernandez WPtel: [phone] [phone] (30 min) Complex 03/14/2016 Visit Plan: Hypertension [...] acute concerns. 12/14/2015 Appointment: Desiree Hernandez WPtel: [facility]5 [phone] (30 min) Complex 12/14/2015 Patient Education: Patient [...] normal liver response to medications. Left shoulder pain-lesli chaudhari-avoid sleeping on left shoulder-call if pain does not resolve or if any worse 07/12/2015 Patient Education: Patient Medication Summary Completed 07/12/2015 Patient Education: Hypertension Completed 07/12/2015 Care Plan: COMPLETE CBC AUTOMATED LOINC : 40642-8 Ordered 07/12/2015 Visit Plan: Hypertension - well [...] Care Plan: COMPLETE CBC AUTOMATED LOINC : 92147-6 Ordered 01/11/2015 Referral: Sekou Hollingsworth Referral Initiated [...] pt is to call for acute concerns. [place] [facility] - if voltaren gel is too expensive. [...] consistently 140/90. Patient verbalized understanding of plan. Dtjcy-mvrztnnag-ypzogmsfah - Pt has acute infection - Pt [...] pt is to call for acute concerns. [place] balm to left shoulder-call if pain does [...]
--- OUTSIDE RECORDS SUMMARY | 2018-05-31 09:23 | XMS REPORT | Continuity of Care Document ---
Author Author [facility] Organization [facility] Address Unknown Phone Unavailable Allergies Active Description Code Type Severity Reaction Onset Reported/Identified Relationship to Patient Clinical Status Yes No Known Drug Allergies [id number] Drug Allergy Unknown N/A 05/30/2018 Medications There is no data. Problems Date Dx Coded Attending Type Code Diagnosis Diagnosed By 06/06/2011 Ot 354.0 CARPAL TUNNEL SYNDROME 06/06/2011 Ot V58.69 OTH MED,LT, CURRENT USE 07/09/2012 Ot 569.3 RECTAL ANAL HEMORRHAGE 07/09/2012 Ot V12.72 PERSONAL HISTORY OF COLONIC POLYPS 07/09/2012 Ot V16.0 FAMILY HX-GI MALIGNANCY 04/01/2013 LIBORIO العلي MD Ot 531.90 STOMACH ULCER NOS 04/01/2013 LIBORIO العلي MD Ot 535.50 UNSP GASTRITIS GASTRODUODENITIS W/O ME 04/01/2013 LIBORIO العلي MD Ot 536.8 STOMACH FUNCTION DIS NEC 04/01/2013 LIBORIO العلي MD Ot 562.00 DIVERTICULOSIS SML INTESTINE (W/O MENT O 04/01/2013 LIBORIO العلي MD Ot 578.9 GASTROINTEST HEMORR NOS 12/14/2013 PAPA LAMAS DO Ot 250.02 DIAB STEWART WO COMPL, TYPE II OR UNSPEC TY 12/14/2013 PAPA LAMAS DO Ot 278.00 OBESITY, NOS 12/14/2013 PAPA LAMAS DO Ot 401.9 HYPERTENSION NOS 10/30/2014 IVONNE BOSS, MARGARITO Gordon Ot V76.12 11/11/2015 Ot V76.12 OTH SCREEN MAMMO-MALIGN NEOPLASM OF JAZLYN 11/11/2015 Ot 354.0 CARPAL TUNNEL SYNDROME 11/11/2015 Ot V72.83 EXAM PRE- OPERATIVE NEC 11/11/2015 Ot V74.8 SCREEN- BACTERIAL DIS NEC 11/11/2015 Ot 826.0 FX PHALANX, FOOT-CLOSED 11/11/2015 Ot E000.8 OTHER EXTERNAL CAUSE STATUS 11/11/2015 Ot E849.0 ACCIDENT IN HOME 11/11/2015 Ot E928.8 ACCIDENT NEC 11/11/2015 Ot V76.12 OTH SCREEN MAMMO-MALIGN NEOPLASM OF JAZLYN 11/11/2015 Ot V72.84 EXAM PRE- OPERATIVE NOS 11/11/2015 LIBORIO العلي MD Ot V72.84 EXAM PRE-OPERATIVE NOS 11/11/2015 MARGARITO CORONADO MD Ot V76.12 OTH SCREEN MAMMO-MALIGN NEOPLASM OF JAZLYN 11/11/2015 Ot 250.02 DIAB STEWART WO COMPL, TYPE II OR UNSPEC TY 11/11/2015 Ot 278.00 OBESITY, NOS 11/11/2015 Ot 401.9 HYPERTENSION NOS 11/11/2015 MARGARITO CORONADO MD Ot V76.12 OTH SCREEN MAMMO-MALIGN NEOPLASM OF JAZLYN 12/02/2015 MARGARITO CORONADO MD, Ot Z12.31 ENCNTR SCREEN MAMMOGRAM FOR MALIGNANT NE 11/23/2016 Ot 826.0 FX PHALANX, FOOT-CLOSED 11/23/2016 Ot E000.8 OTHER EXTERNAL CAUSE STATUS 11/23/2016 Ot E849.0 ACCIDENT IN HOME 11/23/2016 Ot E928.8 ACCIDENT NEC 11/23/2016 Ot V76.12 OTH SCREEN MAMMO-MALIGN NEOPLASM OF JAZLYN 11/23/2016 Ot V72.84 EXAM PRE- OPERATIVE NOS 11/23/2016 LIBORIO العلي MD Ot V72.84 EXAM PRE-OPERATIVE NOS 11/23/2016 MARGARITO CORONADO MD, Ot V76.12 OTH SCREEN MAMMO-MALIGN NEOPLASM OF JAZLYN 11/23/2016 Ot 250.02 DIAB STEWART WO COMPL, TYPE II OR UNSPEC TY 11/23/2016 Ot 278.00 OBESITY, NOS 11/23/2016 Ot 401.9 HYPERTENSION NOS 11/23/2016 MARGARITO CORONADO MD, Ot V76.12 OTH SCREEN MAMMO-MALIGN NEOPLASM OF JAZLYN 11/23/2016 MARGARITO CORONADO MD, Ot Z12.31 ENCNTR SCREEN MAMMOGRAM FOR MALIGNANT NE 11/28/2016 MARGARITO CORONADO MD, Ot Z12.31 ENCNTR SCREEN MAMMOGRAM FOR MALIGNANT NE 12/08/2016 Ot 826.0 FX PHALANX, FOOT-CLOSED 12/08/2016 Ot E000.8 OTHER EXTERNAL CAUSE STATUS 12/08/2016 Ot E849.0 ACCIDENT IN HOME 12/08/2016 Ot E928.8 ACCIDENT NEC 12/08/2016 Ot V76.12 OTH SCREEN MAMMO-MALIGN NEOPLASM OF JAZLYN 12/08/2016 Ot V72.84 EXAM PRE- OPERATIVE NOS 12/08/2016 LIBORIO العلي MD Ot V72.84 EXAM PRE-OPERATIVE NOS 12/08/2016 MARGARITO CORONADO MD, Ot V76.12 OTH SCREEN MAMMO-MALIGN NEOPLASM OF JAZLYN 12/08/2016 Ot 250.02 DIAB STEWART WO COMPL, TYPE II OR UNSPEC TY 12/08/2016 Ot 278.00 OBESITY, NOS 12/08/2016 Ot 401.9 HYPERTENSION NOS 12/08/2016 MARGARITO CORONADO MD Ot V76.12 OTH SCREEN MAMMO-MALIGN NEOPLASM OF JAZLYN 12/08/2016 MARGARITO CORONADO MD Ot Z12.31 ENCNTR SCREEN MAMMOGRAM FOR MALIGNANT NE 12/08/2016 MARGARITO CORONADO MD Ot Z12.31 ENCNTR SCREEN MAMMOGRAM FOR MALIGNANT NE 12/22/2016 SCOTT BURCH APRN Ot M17.11 UNILATERAL PRIMARY OSTEOARTHRITIS, RIGHT 12/27/2016 Ot 826.0 FX PHALANX, FOOT-CLOSED 12/27/2016 Ot E000.8 OTHER EXTERNAL CAUSE STATUS 12/27/2016 Ot E849.0 ACCIDENT IN HOME 12/27/2016 Ot E928.8 ACCIDENT NEC 12/27/2016 Ot V76.12 OTH SCREEN MAMMO-MALIGN NEOPLASM OF JAZLYN 12/27/2016 Ot V72.84 EXAM PRE- OPERATIVE NOS 12/27/2016 LIBORIO العلي MD Ot V72.84 EXAM PRE-OPERATIVE NOS 12/27/2016 MARGARITO CORONADO MD Ot V76.12 OTH SCREEN MAMMO-MALIGN NEOPLASM OF JAZLYN 12/27/2016 Ot 250.02 DIAB STEWART WO COMPL, TYPE II OR UNSPEC TY 12/27/2016 Ot 278.00 OBESITY, NOS 12/27/2016 Ot 401.9 HYPERTENSION NOS 12/27/2016 MARGARITO CORONADO MD, Ot V76.12 OTH SCREEN MAMMO-MALIGN NEOPLASM OF JAZLYN 12/27/2016 MARGARITO CORONADO MD, Ot Z12.31 ENCNTR SCREEN MAMMOGRAM FOR MALIGNANT NE 12/27/2016 MARGARITO CORONADO MD, Ot Z12.31 ENCNTR SCREEN MAMMOGRAM FOR MALIGNANT NE 12/27/2016 SCOTT BURCH APRN Ot M17.11 UNILATERAL PRIMARY OSTEOARTHRITIS, RIGHT 01/02/2017 SCOTT BURCH HEATER TENDER Ot M22.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, RIGHT KNEE 01/02/2017 SCOTT BURCH APRN Ot M25.461 EFFUSION, RIGHT KNEE 01/02/2017 SCOTT BURCH APRN Ot M71.21 SYNOVIAL CYST OF POPLITEAL SPACE [FIGUEROA] 01/02/2017 SCOTT BURCH APRN Ot S83.241A OTH TEAR OF MEDIAL MENISCUS, CURRENT INJ 01/02/2017 SCOTT BURCH APRN Ot X58.XXXA EXPOSURE TO OTHER SPECIFIED FACTORS, INI 01/02/2017 SCOTT BURCH HEATER TENDER Ot Y99.8 OTHER EXTERNAL CAUSE STATUS 01/05/2017 MARGARITO CORONADO MD Ot Z12.31 ENCNTR SCREEN MAMMOGRAM FOR MALIGNANT NE 01/31/2017 SCOTT BURCH APRN Ot M22.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, RIGHT KNEE 01/31/2017 SCOTT BURCH APRN Ot M25.461 EFFUSION, RIGHT KNEE 01/31/2017 SCOTT BURCH APRN Ot M71.21 SYNOVIAL CYST OF POPLITEAL SPACE [FIGUEROA] 01/31/2017 SCOTT BURCH APRN Ot S83.241A OTH TEAR OF MEDIAL MENISCUS, CURRENT INJ 01/31/2017 SCOTT BURCH APRN Ot X58.XXXA EXPOSURE TO OTHER SPECIFIED FACTORS, INI 01/31/2017 SCOTT BURCH APRN Ot Y99.8 OTHER EXTERNAL CAUSE STATUS 05/01/2018 MARGARITO CORONADO MD Ot Z12.31 ENCNTR SCREEN MAMMOGRAM FOR MALIGNANT NE 05/16/2018 MARGARITO CORONADO MD, Ot Z12.31 ENCNTR SCREEN MAMMOGRAM FOR MALIGNANT NE 05/27/2018 SEVERIANO BOSS, LIBORIO Raphael Ot Z01.818 ENCOUNTER FOR OTHER PREPROCEDURAL EXAMIN 05/29/2018 LIBORIO العلي MD Ot Z01.818 ENCOUNTER FOR OTHER PREPROCEDURAL EXAMIN 05/30/2018 LIBORIO العلي MD Ot Z01.818 ENCOUNTER FOR OTHER PREPROCEDURAL EXAMIN 05/30/2018 Ot 250.02 DIAB STEWART WO COMPL, TYPE II OR UNSPEC TY 05/30/2018 Ot 278.00 OBESITY, NOS 05/30/2018 Ot 401.9 HYPERTENSION NOS 05/30/2018 LIBORIO العلي MD Ot Z01.818 ENCOUNTER FOR OTHER PREPROCEDURAL EXAMIN 05/30/2018 LIBORIO العلي MD Ot Z01.818 ENCOUNTER FOR OTHER PREPROCEDURAL EXAMIN Procedures There is no data. Results Test Result Range Capillary blood glucose measurement by glucometer (mass/volume) - 05/31/18 07: 42 Capillary blood glucose measurement by glucometer (mass/volume) 168 mg/dL 70-110 Encounters ACCT No. Visit Date/Time Discharge Status Pt. Type Provider Facility Loc./Unit Complaint [id number] 05/30/2018 12:28:00 05/30/2018 12:30:00 DIS Outpatient LIBORIO العلي MD [facility] PREOP COLONOSCOPY [id number] 04/29/2018 07:53:00 04/29/2018 23:59:59 CLS Outpatient MARGARITO CORONADO MD [facility] RAD SCREENING [id number] 10/15/2017 16:00:00 10/15/2017 23:59:59 CLS Preadmit OTHER, UNLISTED [facility] RT VERIFY DX [id number] 12/27/2016 10:08:00 12/27/2016 23:59:59 CLS Outpatient SCOTT BURCH APRN [facility] RAD RT KNEE PAIN [id number] 12/08/2016 13:23:00 12/08/2016 23:59:59 CLS Outpatient SCOTT BURCH APRN [facility] RAD RIGHT KNEE PAIN [id number] 11/24/2016 12:47:00 11/24/2016 23:59:59 CLS Outpatient MARGARITO CORONADO MD [facility] RAD SCREENING [id number] 11/11/2015 13:50:00 11/11/2015 23:59:59 CLS Outpatient MARGARITO CORONADO MD [facility] RAD SCREENING [id number] 09/24/2014 15:35:00 09/24/2014 23:59:59 CLS Outpatient MARGARITO CORONADO MD [facility] RAD SCREENING [id number] 09/29/2013 18:00:00 12/14/2013 00:01:00 DIS Outpatient LAMASPAPA Pratt DO [facility] DSME DIABETES TYPE II [id number] 07/09/2013 15:11:00 07/09/2013 23:59:59 CLS Outpatient MARGARITO CORONADO MD [facility] RAD SCREENING [id number] 04/01/2013 09:06:00 04/01/2013 12:30:00 DIS Outpatient LIBORIO العلي MD [facility] SDC UPPER GASTRIC BLEED [id number] 03/27/2013 07:30:00 03/27/2013 23:59:59 CLS Outpatient LIBORIO العلي MD [facility] PREOP UPPER GASTRIC BLEED [id number] 05/31/2018 07:25:00 ACT Outpatient LIBORIO العلي MD [facility] ENDO SCREENING [id number] 12/15/2013 13:00:00 Document Registration [id number] 07/09/2012 07:02:00 Document Registration [id number] 07/03/2012 07:12:00 Document Registration [id number] 05/27/2012 08:46:00 Document Registration [id number] 08/22/2011 13:47:00 Document Registration [id number] 06/06/2011 05:32:00 Document Registration [id number] 05/29/2011 10:32:00 Document Registration [id number] 05/25/2011 07:57:00 Document Registration [id number] 03/27/2017 23:45:55 03/27/2017 23:59:59 CLS Outpatient [id number] 09/25/2014 06:29:59 ACT Document Registration
--- OUTSIDE RECORDS SUMMARY | 2018-05-31 09:23 | XMS REPORT | CCD ---
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 Hsu 07/03/2017 No Stop Date Active Cymbalta 30 mg capsule,delayed release RxNorm: 220488 TAKE ONE CAPSULE BY MOUTH DAILY 03/12/2017 07/09/2017 Active losartan 100 mg-hydrochlorothiazide 12.5 mg tablet RxNorm: 229996 TAKE ONE TABLET BY MOUTH DAILY 03/07/2017 07/04/2017 Active Diflucan 150 mg tablet RxNorm: 595142 1 Tablet(s) PO daily 12/201601/21/2017 Inactive Diflucan 150 mg tablet RxNorm: 133870 1 Tablet(s) PO daily 12/201601/14/2017 Inactive ceftriaxone 500 mg solution for injection RxNorm: 3444532 1 Milliliter(s) Inj 01/09/2017 01/09/2017 Inactive Augmentin 875 mg-125 mg tablet RxNorm: 129571 1 Tablet(s) PO BID 01/09/2017 01/15/2017 Inactive Voltaren 1 % topical gel RxNorm: 441445 1 Application TOP TID as needed 12/08/2016 No Stop Date Active losartan 100 mg-hydrochlorothiazide 12.5 mg tablet RxNorm: 612033 TAKE ONE TABLET BY MOUTH DAILY 12/01/2016 02/28/2017 Inactive atenolol 100 mg tablet RxNorm: 162169 TAKE ONE TABLET BY MOUTH DAILY 12/01/2016 02/28/2017 Inactive atenolol 100 mg tablet RxNorm: 072031 1 Tablet(s) PO daily 11/30/2016 Inactive losartan 100 mg-hydrochlorothiazide 12.5 mg tablet RxNorm: 697608 1 Tablet(s) PO daily 11/01/2016 11/30/2016 Inactive atenolol 50 mg tablet RxNorm: 557665 TAKE ONE TABLET BY MOUTH DAILY 08/04/2016 10/23/2016 Inactive Cymbalta 30 mg capsule,delayed release RxNorm: 185430 TAKE ONE CAPSULE BY MOUTH DAILY 08/04/2016 12/31/2016 Inactive losartan 50 mg-hydrochlorothiazide 12.5 mg tablet RxNorm: 866693 TAKE ONE TABLET BY MOUTH DAILY 06/19/2016 10/23/2016 Inactive doxycycline hyclate 100 mg tablet RxNorm: 654254 1 Tablet(s) PO BID 06/13/2016 06/19/2016 Inactive Kenalog 40 mg/mL suspension for injection RxNorm: 1272619 Milliliter(s) Inj 06/13/2016 06/13/2016 Inactive atenolol 50 mg tablet RxNorm: 347229 1 Tablet(s) PO daily 201511/09/2015 Inactive atenolol 50 mg tablet RxNorm: 582430 1 Tablet(s) PO daily 201505/07/2016 Inactive Cymbalta 30 mg capsule,delayed release RxNorm: 657132 TAKE ONE CAPSULE BY MOUTH DAILY 09/16/2015 03/13/2016 Inactive losartan 50 mg-hydrochlorothiazide 12.5 mg tablet RxNorm: 887108 TAKE ONE TABLET BY MOUTH DAILY 08/06/2015 02/01/2016 Inactive Cymbalta 30 mg capsule,delayed release RxNorm: 204570 TAKE ONE CAPSULE BY MOUTH DAILY 06/28/2015 08/26/2015 Inactive losartan 50 mg-hydrochlorothiazide 12.5 mg tablet RxNorm: 019621 1 Tablet(s) PO daily 05/05/2015 07/03/2015 Inactive Cymbalta 60 mg capsule,delayed release RxNorm: 332036 1 Capsule(s) PO Q 03/15/2015 07/11/2015 Inactive Cymbalta 30 mg capsule,delayed release RxNorm: 328902 1 Capsule(s) PO daily 01/11/2015 04/10/2015 Inactive Cymbalta 60 mg capsule,delayed release RxNorm: 599473 1 Capsule(s) PO QHS please call office for appointment 11/23/2014 Inactive Cymbalta 60 mg capsule,delayed release RxNorm: 264875 1 Capsule(s) PO QHS please call office for appointment 11/23/2014 Inactive glimepiride 4 mg tablet RxNorm: 448613 2 Tablet(s) PO daily No Start Date Active simvastatin 20 mg tablet RxNorm: 427068 1 Tablet(s) PO daily No Start Date Active metformin 500 mg tablet RxNorm: 710403 2 Tablet(s) PO BID No Start Date Active Lantus 100 unit/mL subcutaneous solution RxNorm: 175976 12 Unit(s) SQ QHS No Start Date 01/21/2017 Inactive atenolol oral RxNorm: 1202 oral No Start Date 12/14/2015 Inactive Bydureon 2 mg/0.65 mL subcutaneous pen injector RxNorm: 0698162 Milliliter(s) SQ weekly No Start Date 12/13/2015 Inactive losartan 50 mg-hydrochlorothiazide 12.5 mg tablet RxNorm: 153286 1 Tablet(s) PO daily No Start Date 05/04/2015 Inactive Trulicity 0.75 mg/0.5 mL subcutaneous pen injector RxNorm: 0479850 Milliliter(s) SQ QW No Start Date 07/02/2017 Inactive Medication Administered Medication Codes Instructions Start Date Status ceftriaxone 500 mg solution for injection RxNorm: 8072427 1Milliliter 01/09/2017 No longer Active Kenalog 40 mg/mL suspension for injection RxNorm: 7288959 Milliliter 06/13/2016 No longer Active Immunizations No [...] Item Code Result Date C A/B FLU 8068332 Influenza A Scr Negative 07/03/2017 C A/B FLU 6808402 Influenza B Scr Negative 07/03/2017 C A/B FLU 8287543 Influenza Intrp B AG: PRID:PT:NOSE:NOM:IF See Footnote [...] CPT-4: J3301 06/13/2016 DESTRUCT PREMALG LESION CPT-4: 65316 12/14/2015 Vital Signs Date Vital 07/03/2017 Blood Pressure 1: 130/72 Code : 8480-6 BMI: 38.1 Code : 69361-1 Heart Rate 1 : 78 bpm Height: 5'7" SpO2: 97% Temperature: 36.3 (C) / 97.4 (F) Weight: 243 lbs 03/30/2017 Blood Pressure 1: 124/74 Code : 8480-6 BMI: 38.5 Code : 96439-8 Heart Rate 1 : 80 bpm Height: 5'7" SpO2: 97% Weight: 246 lbs 01/09/2017 Blood Pressure 1: 148/80 Code : 8480-6 BMI: 38.7 Code : 98307-8 Heart Rate 1 : 80 bpm Height: 5'7" SpO2: 97% Weight: 247 lbs 12/20/2016 Blood Pressure 1: 13674 Code : 8480-6 Heart Rate 1: 78 bpm Height: SpO2: 98% Weight: 12/08/2016 Blood Pressure 1: 13682 Code : 8480-6 BMI: 39.0 Code : 40420-3 Heart Rate 1 : 75 bpm Height: 5'7" SpO2: 97% Weight: 249 lbs 11/30/2016 Blood Pressure 1: 150/82 Code : 8480-6 BMI: 39.0 Code : 11484-4 Heart Rate 1 : 75 bpm Height: 5'7" SpO2: 98% Weight: 249 lbs 11/01/2016 Blood Pressure 1: 136/80 Code : 8480-6 BMI: 39.8 Code : 91767-1 Heart Rate 1 : 79 bpm Height: 5'7" SpO2: 98% Weight: 254 lbs 10/18/2016 Blood Pressure 1: 142/80 Code : 8480-6 BMI: 39.0 Code : 59393-2 Heart Rate 1 : 74 bpm Height: 5'7" SpO2: 97% Weight: 249 lbs 09/29/2016 Blood Pressure 1: 136/76 Code : 8480-6 BMI: 39.2 Code : 85422-5 Heart Rate 1 : 70 bpm Height: 5'7" SpO2: 96% Weight: 250 lbs 06/13/2016 Blood Pressure 1: 178/82 Code : 8480-6 Blood Pressure 1: 152/72 Code: 8480-6 BMI: 37.7 Code: 75560-1 Heart Rate 1: 108 bpm Height: 5'7" SpO2: 97% Weight: 241 lbs 12/14/2015 Blood Pressure 1: 136/80 Code : 8480-6 BMI: 38.4 Code : 11792-9 Heart Rate 1 : 97 bpm Height: 5'7" SpO2: 98% Weight: 245 lbs 07/12/2015 Blood Pressure 1: 160/68 Code : 8480-6 Blood Pressure 1: 138/78 Code: 8480-6 BMI: 38.4 Code: 85112-6 Heart Rate 1: 96 bpm Height: 5'7" SpO2: 98% Weight: 245 lbs 01/11/2015 Blood Pressure 1: 132/84 Code : 8480-6 BMI: 39.2 Code : 88990-9 Heart Rate 1 : 86 bpm Height: [...] anxiety Triggers stress 09/29/2016 stressful job at [employer] anxiety Alleviating Factors medication 09/29/2016 decreased [...] anxiety Triggers stress 12/14/2015 stressful job at [employer] anxiety Alleviating Factors medication 12/14/2015 [...] anxiety Triggers stress 07/12/2015 stressful job at [employer] anxiety Alleviating Factors medication 07/12/2015 [...] data Encounters Encounter Performer Location Codes Date 76539 EST. PATIENT, LEVEL III Diagnosis: Other malaise[ICD10: R53.81] Diagnosis: Acute laryngopharyngitis[ICD10: J06.0] Diagnosis: Other allergic rhinitis[ICD10: J30.89] Camille Aguirre MD, [facility] CPT-4: 89122 07/03/2017 ([id number]) 21798 EST. PATIENT, LEVEL III Diagnosis: Essential (primary) hypertension[ICD10: I10] Diagnosis: Type 2 diabetes mellitus without complications[ICD10: E11.9] Desiree Aguirre MD, [facility] CPT-4: 53344 03/30/2017 ([id number]) 19611 EST. PATIENT, LEVEL III Diagnosis: Cough[ICD10: R05] Diagnosis: Acute upper respiratory infection, unspecified[ICD10: J06.9] Desiree Aguirre MD, [facility] CPT-4: 95306 01/09/2017 [id number] EST. PATIENT, LEVEL III Diagnosis: Pain in right knee[ICD10: M25.561] Diagnosis: Other instability, right knee[ICD10: M25.361] Camille Aguirre MD, [facility] CPT-4: 80506 12/20/2016 70006 EST. PATIENT, LEVEL III Diagnosis: Pain in right knee[ICD10: M25.561] Camille Aguirre MD, [facility] CPT-4: 22685 12/08/2016 02971 EST. PATIENT, LEVEL III Diagnosis: Essential (primary) hypertension[ICD10: I10] Camille Aguirre MD, [facility] CPT-4: 18599 11/30/2016 55947 EST. PATIENT, LEVEL IV Diagnosis: Essential (primary) hypertension[ICD10: I10] Camille Aguirre MD, [facility] CPT-4: 33269 11/01/2016 57694 EST. PATIENT, LEVEL III Diagnosis: Essential (primary) hypertension[ICD10: I10] Camille Aguirre MD, [facility] CPT-4: 56178 10/18/2016 ([id number]) 51996 EST. PATIENT, LEVEL IV Diagnosis: Essential (primary) hypertension[ICD10: I10] Diagnosis: Type 2 diabetes mellitus without complications[ICD10: E11.9] Diagnosis: Mixed hyperlipidemia[ICD10: E78.2] Desiree Aguirre MD, [facility] CPT-4: 35069 09/29/2016 ([id number]) 26715 EST. PATIENT, LEVEL III Diagnosis: Essential (primary) hypertension[ICD10: I10] Diagnosis: Cough[ICD10: R05] Diagnosis: Acute recurrent maxillary sinusitis[ICD10: J01.01] Desiree Aguirre MD, [facility] CPT-4: 46006 06/13/2016 ([id number]) 17550 EST. PATIENT, LEVEL III Diagnosis: Type 2 diabetes mellitus without complications[ICD10: E11.9] Diagnosis: Essential (primary) hypertension[ICD10: I10] Diagnosis: Actinic keratosis[ICD10: L57.0] Desiree Aguirre MD, [facility] CPT-4: 82206 12/14/2015 ([id number]) 78971 EST. PATIENT, LEVEL IV Diagnosis: Essential (primary) hypertension[ICD10: I10] Diagnosis: Type 2 diabetes mellitus without complications[ICD10: E11.9] Diagnosis: Mixed hyperlipidemia[ICD10: E78.2] Desiree Aguirre MD, [facility] CPT-4: 76632 07/12/2015 ([id number]) OFFICE VISIT, NEW - LEVEL 4 Diagnosis: ESSENTIAL HYPERTENSION[ICD9: 401.9] Diagnosis: DIABETES TYPE II[ICD9: 250.00] Diagnosis: HYPERLIPIDEMIA[ICD9: 272.4] Diagnosis: ANXIETY STATE[ICD9: 300.00] [facility] CPT-4: 28112 01/11/2015 Plan of Care Planned Activity Notes [...] Hsu in 03/30/2017 Appointment: [phone] [facility] Complex 03/30/2017 Patient Education: Patient Medication Summary Completed 03/30/2017 Patient Education: Hypertension Completed 03/30/2017 Visit Plan: URI - Pt advised to increase fluids, vitamin C. Discussed natural and expected course of this diagnosis and need to alert me if symptoms do not follow expected course, or if any worse. RX sent to patient' s pharmacy. 01/09/2017 Appointment: Desire[facility] Hernandez [facility]el[phone] (15 min) Moderate 01/09/2017 Patient Education: Patient [...] not improve. 12/20/2016 Appointment: Cam[facility] Hanna [facility]el[facility] ([facility] min) Moderate 12/20/2016 Patient Education: Patient Medication Summary Completed 12/20/2016 Care Plan: Referral Order SNOMED-CT : [id number] Pending 12/20/2016 Visit Plan: Right knee pain - pt is to use RICE - Rest, Ice , Compression, Elevation - The pt is to use prn antiinflammatories to manage acute pain. The patient is to call the office if the pain is worsening or does not improve. 12/08/2016 Appointment: Camille Hanna [facility]Ptel[facility] ([facility] min) Complex 12/08/2016 Patient Education: Patient [...] at home. 11/30/2016 Appointment: Camille Hanna WPtel: [facility] (15 min) Moderate 11/30/2016 Patient Education: Patient [...] acute concerns. 11/01/2016 Appointment: Camille Hanna WPtel: [facility] (15 min) Moderate 11/01/2016 Patient Education: Patient [...] to medications. 09/29/2016 Appointment: Desiree Hernandez WPtel: [address] [place], [place] [phone] (15 min) Moderate 09/29/2016 Patient Education: Patient Medication Summary Completed 09/29/2016 Visit Plan: HTN-elevated today but she didn't take her blood pressure medications today-get new blood pressure machine-monitor blood pressure and pulse at home and call if readings consistently 140/90. Patient verbalized understanding of plan. Iheye-bsdluhabg-ukiqvtdrdy - Pt has acute infection - Pt informed to use decongestant, RX given to patient, kenalog injection today in the office-start daily anti histamine such as jacki. Call if symptoms do not show improvement. 06/13/2016 Appointment: Desiree Hernandez WPtel: [address] [place] [address] (15 min) Moderate 06/13/2016 Patient Education: Patient Medication Summary Completed 06/13/2016 Appointment: Desiree Hernandez WPtel: [facility] [address] (30 min) Complex 03/14/2016 Visit Plan: Hypertension [...] acute concerns. 12/14/2015 Appointment: Desiree Hernandez WPtel: [facility] [address] (30 min) Complex 12/14/2015 Patient Education: Patient [...] Care Plan: COMPLETE CBC AUTOMATED LOINC : 73998-9 Ordered 07/12/2015 Visit Plan: Hypertension - well [...] Care Plan: COMPLETE CBC AUTOMATED LOINC : 88565-3 Ordered 01/11/2015 Referral: Sekou Hollingsworth Referral Initiated [...] pt is to call for acute concerns. [place] - if voltaren gel is too expensive. [...] consistently 140/90. Patient verbalized understanding of plan. Qygpd-jtkkkbodg-taqjeqhjhp - Pt has acute infection - Pt [...] in May recommend anti histamine such as jcaki or zyrtec . URI - Pt advised [...] pt is to call for acute concerns. [place] balm to left shoulder-call if pain does [...]
[2018-05-31 09:45] VITALS: BP 136/66
--- NOTE | 2018-05-31 23:19 | OPERATIVE REPORT ---
DATE OF SERVICE: COLONOSCOPY SUMMARY INDICATION FOR PROCEDURE: Screening colonoscopy. The patient was placed in left lateral decubitus position. Digital rectal evaluation was performed prior to colonoscopy. Anal sphincter tone was normal and the perianal reflexes intact. No abnormalities on additional inspection of anal canal or distal rectal vault. The colonoscope was then inserted into the rectum under direct visualization and advanced to the cecum. The cecum was identified by identification of the ileocecal valve and cecal strap. Photographic documentation was obtained. Careful inspection was made as the colonoscope was withdrawn. FINDINGS: There was no evidence for internal or external hemorrhoids and the rectum was unremarkable. The sigmoid colon, descending colon and splenic flexure were unremarkable. Diminutive polyps noted, one in the distal transverse colon, one in the hepatic flexure. It was biopsied and ablated, and submitted for histopathology with no subsequent blood loss. The ascending colon and cecum were unremarkable. No evidence for diverticular disease was noted. ASSESSMENT/PLAN: Two diminutive polyps were removed, one from the distal transverse colon, one from the hepatic flexure via hot forceps with no subsequent blood loss. As long as there are no surprises on histopathology report, we will advocate consideration for repeat surveillance colonoscopy in 5 years as the patient does have a family history for colon cancer. I thank you for the referral of this pleasant lady. Job ID: [id number] DocumentID: [id number] Dictated Date: 05/31/2018 12:25:04 Rn Heart Date: 05/31/2018 23:19:08 Dictated By: LIBORIO العلي MD
== END 2018-05-31 10:20 | disposition home or self-care (01) ==
LOC: ENDO 07:25
PROVIDERS: ATTEND Internal Medicine
DX: Z12.11 Encounter for screening for malignant neoplasm of colon (principal); D12.3 Benign neoplasm of transverse colon; E11.9 Type 2 diabetes mellitus without complications; I10 Essential (primary) hypertension; E78.5 Hyperlipidemia, unspecified; Z80.0 Family history of malignant neoplasm of digestive organs; Z79.4 Long term (current) use of insulin; Z79.899 Other long term (current) drug therapy; Z87.891 Personal history of nicotine dependence
CPT/HCPCS: 82962; 88305

== ENCOUNTER → 2019-05-21 | Outpatient (CLI) | payer BC ==
[~2019-05-21] MED LIST changes: -DULO20CA18 PO; +DULO20CA19 PO
--- NOTE | 2019-05-21 09:51 | Diagnostic Imaging Report ---
INDICATION: Screening. TECHNIQUE: The current study was also evaluated with a Computer Aided Detection (CAD) system. 3D Tomographic imaging was also performed. COMPARISON: 04/29/2018, 11/24/2016, and 11/11/2015. FINDINGS: There are scattered fibroglandular densities bilaterally. There are a few benign type calcifications. There is no dominant mass, spiculated lesion, or suspicious calcification identified. The skin, nipples, and axillae are unremarkable. IMPRESSION: Benign findings. ACR BI-RADS Category 2: Benign findings. Result letter will be mailed to the patient. Note: At least 10% of breast cancer is not imaged by mammography. Dictated by: Dictated on workstation # [id number]
== END ==
LOC: RAD 07:16
PROVIDERS: ATTEND Obstetrics & Gynecology
DX: Z12.31 Encounter for screening mammogram for malignant neoplasm of breast (principal)
CPT/HCPCS: 77067

== ENCOUNTER → 2020-03-09 | Outpatient (CLI) | payer BC ==
[~2020-03-09] MED LIST changes: +GADOBUTROL 10 MMOL/10 ML (GADAVIST) VIAL IV ONE; +GLIM4TAB5 PO
[2020-03-09 08:18] LABS: BUN/CREATININE RATIO 17; CREATININE SERUM 0.72 MG/DL (0.60-1.30); GFR ESTIMATED > 60
--- NOTE | 2020-03-09 09:39 | Diagnostic Imaging Report ---
PROCEDURE: MR imaging of the brain with and without contrast. TECHNIQUE: Multiplanar, multisequence MR imaging of the brain was performed with and without contrast. INDICATION: Loss of memory. FINDINGS: The previous MRI brain exam of 09/02/2007 failed to show any sign of an acute intracranial abnormality. On this study, there is no abnormal signal arising from the brain on the diffusion series to suggest an area of acute ischemia. There is no mass, shift of the midline, or hemorrhage. There is no abnormal enhancement on the post contrast sequence to suggest a neoplastic or infectious process either. There are a few small areas of increased signal in the periventricular white matter bilaterally on the FLAIR series. These are more numerous and more conspicuous than noted on the prior study. These findings are nonspecific but may be secondary to encephalomalacia from microvascular ischemia. The area of encephalomalacia along the medial aspect of the left occipital lobe seen previously is again evident and unchanged. The ventricles are similar in size to the prior study. The cortical atrophy noted previously has not progressed significantly. The sella is not enlarged and the expected carotid flow voids are evident bilaterally. The orbits are symmetrical and within normal limits. The sinuses are generally clear. The 7th and 8th nerve complexes are unremarkable. IMPRESSION: 1. There is no evidence for an acute intracranial abnormality. 2. There is no abnormal enhancement on the post contrast series to suggest a neoplastic or infectious process. 3. There are mild senescent changes. Dictated by: Dictated on workstation # [id number]
== END ==
LOC: RAD 08:00
PROVIDERS: ATTEND Family Medicine
DX: G31.89 Other specified degenerative diseases of nervous system (principal); Z86.73 Personal history of transient ischemic attack (TIA), and cerebral infarction without residual deficits
CPT/HCPCS: 36415; 70553; 82565; 84520

== ENCOUNTER 2020-06-10 12:23 | Emergency (ER) | payer BC ==
[~2020-06-10] VITALS: Ht 170.2 cm; Wt 99.8 kg
[~2020-06-10 12:23] MED LIST changes: -GADOBUTROL 10 MMOL/10 ML (GADAVIST) VIAL IV ONE
--- NOTE | 2020-06-10 12:50 | NUR ---
Called pt and let them know we are cleaning the room and going to get her adriana.
[2020-06-10 13:10] VITALS: BP 150/75
[2020-06-10] MEDS ORDERED: LACTATED RINGERS 1,000 ML IV ONE (13:30)
--- NOTE | 2020-06-10 13:40 | ED Respiratory ---
General Chief Complaint: Respiratory Problems Stated Complaint: COUGH,SOB,DIARRHEA,FATIGUE Source: patient Exam Limitations: no limitations History of Present Illness Date Seen by Provider: Jun 10, 2020 Time Seen by Provider: 13:18 Initial Comments Patient presents to the ER by private conveyance with chief complaint that 8 days ago she started having symptoms of COVID-19 confirmed on a positive test on Sunday, 5 days ago. She has no history of lung disease. She quit smoking over 20 years ago. She has had some nausea and vomited once today. She is also had intractable diarrhea. She has not taken anything for either nausea or the diarrhea. She says she has been trying to increase her fluid intake albeit un successfully. She feels little short of breath. She denies any pain or history of heart disease. She has not had a fever or temperature above 99.5. She is not taking antipyretics. She has not had an influenza swab. She does have diabetes but does not take insulin. Allergies and Home Medications Allergies Coded Allergies: No Known Drug Allergies (Unverified , 05/30/18) Home Medications Atenolol 50 Mg Tablet, 50 MG PO DAILY, (Reported) Dulaglutide 0.75 Mg/0.5 Ml Pen.injctr, 0.75 MG SQ WEEK, (Reported) Duloxetine HCl 20 Mg Capsule.dr, 20 MG PO DAILY, (Reported) Glimepiride 4 Mg Tablet, 2 MG PO DAILY, (Reported) Losartan/Hydrochlorothiazide 1 Each Tablet, 1 EACH PO DAILY, (Reported) Lovastatin 20 Mg Tablet, 20 MG PO DAILY, (Reported) Metformin HCl 500 Mg Tablet, PO DAILY, (Reported) Patient Home Medication List Home Medication List Reviewed: Yes Review of Systems Review of Systems Constitutional: No chills, No diaphoresis EENTM: No ear discharge, No ear pain Respiratory: cough, short of breath Cardiovascular: No chest pain, No edema, No palpitations Gastrointestinal: No abdominal pain, No constipation; diarrhea, nausea, vomiting Genitourinary: No discharge, No dysuria Musculoskeletal: No back pain, No joint pain Skin: No pruritus, No rash Psychiatric/Neurological: Denies Headache, Denies Numbness All Other Systems Reviewed Negative Unless Noted: Yes Past Kfcumpe-Wkdizk-Rhjejp Hx Patient Social History Alcohol Use: Rarely Uses Alcohol Beverage of Choice: Wine Recreational Drug Use: No Smoking Status: Former Smoker Type Used: Cigarettes Former Smoker, Quit: May 30, 2000 Recent Hopitalizations: No Immunizations Up To Date Tetanus Booster (TDap): Unknown Date of Influenza Vaccine: Mar 18, 2018 Seasonal Allergies Seasonal Allergies: No Past Medical History Hysterectomy Currently Using CPAP: No Currently Using BIPAP: No High Cholesterol, Hypertension TIA Reproductive Disorders: No Sexually Transmitted Disease: No HIV/AIDS: No Gastroesophageal Reflux Loss of Vision: Bilateral Depression Adverse Reaction/Blood Tranf: No (N/A) Physical Exam Vital Signs - First Documented 06/10/20 13:10 Temp 36.1 Pulse 80 Resp 23 B/P (MAP) 150/75 (100) Pulse Ox 92 O2 Delivery Nasal Cannula Capillary Refill : Height: 5'7.00" Weight: 239lbs. 0.0oz. [id number]; 37.4 BMI Method: General Appearance: WD/WN, mild distress Eyes: Bilateral Eye Normal Inspection, Bilateral Eye PERRL, Bilateral Eye EOMI HEENT: PERRL/EOMI, normal ENT inspection; No pharynx normal (Dry oral mucosa) Neck: full range of motion, supple, normal inspection Respiratory: normal breath sounds, respiratory distress (Mild with oxygen sats 90 to 91% on room air while seated), crackles (Faint basilar atelectasis) Cardiovascular: normal peripheral pulses, regular rate, rhythm Gastrointestinal: normal bowel sounds, non tender, soft Extremities: normal inspection, normal capillary refill Neurologic/Psychiatric: alert, normal mood/affect, oriented x 3 Skin: normal color, warm/dry Progress/Results/Core Measures Suspected Sepsis SIRS Temperature: Pulse: Respiratory Rate: Laboratory Tests 06/10/20 13:30: White Blood Count 4.2L Blood Pressure / Mean: Laboratory Tests 06/10/20 13:30: Creatinine 0.90, INR Comment 0.9, Platelet Count 138, Total Bilirubin 0.6 Results/Orders Lab Results Laboratory Tests Test 06/10/20 13:30 06/10/20 15:10 Range/Units White Blood Count 4.2 L 4.3-11.0 10^3/uL Red Blood Count 4.94 3.80-5.11 10^6/uL Hemoglobin 14.4 11.5-16.0 g/dL Hematocrit 43 35-52 % Mean Corpuscular Volume 86 80-99 fL Mean Corpuscular Hemoglobin 29 25-34 pg Mean Corpuscular Hemoglobin Concent 34 32-36 g/dL Red Cell Distribution Width 12.9 10.0-14.5 % Platelet Count 138 130-400 10^3/uL Mean Platelet Volume 11.6 9.0-12.2 fL Immature Granulocyte % (Auto) 1 % Neutrophils (%) (Auto) 85 H 42-75 % Lymphocytes (%) (Auto) 9 L 12-44 % Monocytes (%) (Auto) 5 0-12 % Eosinophils (%) (Auto) 0 0-10 % Basophils (%) (Auto) 0 0-10 % Neutrophils # (Auto) 3.6 1.8-7.8 10^3/uL Lymphocytes # (Auto) 0.4 L 1.0-4.0 10^3/uL Monocytes # (Auto) 0.2 0.0-1.0 10^3/uL Eosinophils # (Auto) 0.0 0.0-0.3 10^3/uL Basophils # (Auto) 0.0 0.0-0.1 10^3/uL Immature Granulocyte # (Auto) 0.0 0.0-0.1 10^3/uL Prothrombin Time 12.4 12.2-14.7 SEC INR Comment 0.9 0.8-1.4 Activated Partial Thromboplast Time 28 24-35 SEC D-Dimer 0.69 H 0.00-0.49 UG/ML Sodium Level 135 135-145 MMOL/L Potassium Level 3.3 L 3.6-5.0 MMOL/L Chloride Level 98 98-107 MMOL/L Carbon Dioxide Level 22 21-32 MMOL/L Anion Gap 15 H 5-14 MMOL/L Blood Urea Nitrogen 14 7-18 MG/DL Creatinine 0.90 0.60-1.30 MG/DL Estimat Glomerular Filtration Rate > 60 BUN/Creatinine Ratio 16 Glucose Level 182 H 70-105 MG/DL Calcium Level 9.5 8.5-10.1 MG/DL Corrected Calcium 9.2 8.5-10.1 MG/DL Total Bilirubin 0.6 0.1-1.0 MG/DL Aspartate Amino Transf (AST/SGOT) 34 5-34 U/L Alanine Aminotransferase (ALT/SGPT) 23 0-55 U/L Alkaline Phosphatase 49 40-136 U/L C-Reactive Protein High Sensitivity 1.50 H 0.00-0.50 MG/DL Total Protein 8.9 H 6.4-8.2 GM/DL Albumin 4.4 3.2-4.5 GM/DL Procalcitonin 0.05 <0.10 NG/ML Blood Gas Puncture Site L RAD Blood Gas Patient Temperature 97.0 Arterial Blood pH 7.45 H 7.37-7.43 Arterial Blood Partial Pressure CO2 35 35-45 MMHG Arterial Blood Partial Pressure O2 65 L 79-93 MMHG Arterial Blood HCO3 24 23-27 MMOL/L Arterial Blood Total CO2 25.3 21.0-31.0 MMOL/L Arterial Blood Oxygen Saturation 94 94-100 % Arterial Blood Base Excess 0.5 -2.5-2.5 MMOL/L Beltran Test YES-POS Blood Gas Ventilator Setting NO Blood Gas Inspired Oxygen ROOM AIR Micro Results Microbiology 06/10/20 Influenza Types A,B Antigen (LORELEI) - Final, Complete My Orders Orders - ELVA CHRISTENSEN Ed Iv/Invasive Line Start (06/10/20 13:30) Lactated Ringers (Lr 1000 Ml Iv Solution (06/10/20 13:30) Cbc With Automated Diff (06/10/20 13:30) Comprehensive Metabolic Panel (06/10/20 13:30) Hs C Reactive Protein (06/10/20 13:30) Chest 1 View, Ap/Pa Only (06/10/20 13:30) Influenza A And B Antigens (06/10/20 13:30) Communication For Respiratory (06/10/20 13:30) Dexamethasone Injection (Decadron Injec (06/10/20 13:45) Protime With Inr (06/10/20 13:42) Partial Thromboplastin Time (06/10/20 13:42) Fibrin Degradation Products (06/10/20 13:42) Hs C Reactive Protein (06/10/20 13:42) Procalcitonin (Pct) (06/10/20 13:42) Dexamethasone Injection (Decadron Inje (06/10/20 13:39) Arterial Blood Gas (06/10/20 14:48) Blood Culture (06/10/20 14:50) Ceftriaxone For Iv Use (Rocephin For I (06/10/20 15:00) Azithromycin Tablet (Zithromax Tablet) (06/10/20 15:00) Medications Given in ED Current Medications Medications Dose Ordered Sig/Elyssa Route Start Time Stop Time Status Last Admin Dose Admin Azithromycin 500 mg ONCE ONCE PO 06/10/20 15:00 06/10/20 15:01 DC 06/10/20 15:04 500 MG Ceftriaxone Sodium 1000 mg/ Sterile Water 10 ml @ 200 mls/hr ONCE ONCE IV 06/10/20 15:00 06/10/20 15:02 DC 06/10/20 15:04 200 MLS/HR Dexamethasone Sodium Phosphate 10 mg STK-MED ONCE .ROUTE 06/10/20 13:39 06/10/20 13:44 DC 06/10/20 13:47 6 MG Lactated Ringer's 1,000 ml @ 0 mls/hr Q0M ONCE IV 06/10/20 13:30 06/10/20 13:33 DC 06/10/20 13:46 1,000 MLS/HR Vital Signs/I&O 06/10/20 13:10 Temp 36.1 Pulse 80 Resp 23 B/P (MAP) 150/75 (100) Pulse Ox 92 O2 Delivery Nasal Cannula Capillary Refill : Progress Note #1: Time: 13:42 Progress Note Patient does have some resting hypoxia. Plan to have RT get her up and walk around and see if we get her qualified for home oxygen. She otherwise does not appear septic. We will get a chest x-ray but I suspect this is all related to her COVID-19 day 8 of symptoms. Progress Note #2: Time: 15:49 Progress Note After a bag of fluids patient is feeling much better. We ambulated her around the room and got her oxygen sats down to 87% and will provide a copy of this along with her ABG and chest x-ray to DME to get her set up on home oxygen. They said they will bring oxygen concentrator to the ER in about 15 minutes. We did offer her a stay in the hospital which she declined stating if she could go home on oxygen and antibiotics she would prefer to trial outpatient therapy. I think at this time it would be reasonable. Were going to start her on some steroids since she is oxygen dependent with a diagnosis of COVID-19. Diagnostic Imaging Diagonstic Imaging: Xray Plain Films/CT/US/NM/MRI: chest Reviewed: Reviewed by Me Departure Impression Primary Impression: COVID-19 Additional Impressions: Pneumonia Qualified Codes: J18.9 - Pneumonia, unspecified organism Hypoxemia Disposition: 01 HOME, SELF-CARE Condition: Improved Departure-Patient Inst. Decision time for Depature: 15:45 Referrals: MELYSSA GOODSON MD (PCP/Family) Primary Care Physician Patient Instructions: Pneumonia, Adult (DC), Coronavirus Disease 2019 (COVID- 19) ED Add. Discharge Instructions: I suspect you have a bacterial pneumonia in addition to your COVID-19. I would like you to start taking Decadron 6 mg daily for the next 10 days. To treat the pneumonia I would like you to take cefdinir 1 capsule twice a day for the next 10 days. Azithromycin 1 tablet starting tomorrow every day until it is gone. Use the oxygen as needed to keep your oxygen sats above 94%. Obtain a pulse oximeter if you do not already have one. Return to the ER if you are unable to keep your oxygen sats above 94% or you develop chest pain or other worrisome symptoms. Ondansetron 1 tablet every 6 hours under the tongue as necessary for nausea and/or vomiting. Tylenol and ibuprofen as necessary for body aches and fatigue. Drink plenty of fluids. Loperamide 2 tablets followed by 1 tablet every 4 hours afterwards if you are having watery, loose diarrhea. Plan to follow-up in the next week or 2 with your primary care doctor. All discharge instructions reviewed with patient and/or family. Voiced understanding. Scripts Dexamethasone (Decadron) 6 Mg Tablet 6 MG PO DAILY for 10 Days, #10 TAB 0 Refills Prov: ELVA CHRISTENSEN 06/10/20 Azithromycin (Azithromycin) 250 Mg Tablet 250 MG PO DAILY, #4 TAB 0 Refills Prov: ELVA CHRISTENSEN 06/10/20 Cefdinir (Cefdinir) 300 Mg Capsule 300 MG PO BID for 10 Days, #20 CAP 0 Refills Prov: ELVA CHRISTENSEN 06/10/20 Ondansetron (Ondansetron Odt) 4 Mg Tab.rapdis 4 MG PO Q6H PRN for NAUSEA/VOMITING, #15 TAB 0 Refills Prov: ELVA CHRISTENSEN 06/10/20 [oxygen] No Conflict Check L NS continuous for covid 19 hypoxemia, #2 0 Refills Prov: ELVA CHRISTENSEN 06/10/20 Copy Copies To 1: MELYSSA GOODSON MD, TITUS J Jun 10, 2020 13:40
[2020-06-10 13:43] LABS: BASOPHILS % (AUTO) 0 % (0-10); EOSINOPHILS % (AUTO) 0 % (0-10); HEMOGLOBIN 14.4 g/dL (11.5-16.0); LYMPHOCYTES # (AUTO) 0.4 10^3/uL (1.0-4.0)
[2020-06-10 13:45] LABS: HEMATOCRIT 43 % (35-52); LYMPHOCYTES % (AUTO) 9 % (12-44); MEAN CORPUSCULAR HEMOGLOBIN 29 pg (25-34); MEAN CORPUSCULAR HGB CONC 34 g/dL (32-36); MEAN CORPUSCULAR VOLUME 86 fL (80-99); MEAN PLATELET VOLUME 11.6 fL (9.0-12.2); MONOCYTES # (AUTO) 0.2 10^3/uL (0.0-1.0); MONOCYTES % (AUTO) 5 % (0-12); NEUTROPHILS # (AUTO) 3.6 10^3/uL (1.8-7.8); NEUTROPHILS % (AUTO) 85 % (42-75); PLATELET COUNT 138 10^3/uL (130-400); WHITE BLOOD COUNT 4.2 10^3/uL (4.3-11.0)
[2020-06-10 13:46] LABS: ALBUMIN 4.4 GM/DL (3.2-4.5); CHLORIDE 98 MMOL/L (98-107); POTASSIUM 3.3 MMOL/L (3.6-5.0); SODIUM 135 MMOL/L (135-145)
[2020-06-10 13:47] LABS: CALCIUM 9.5 MG/DL (8.5-10.1)
[2020-06-10 13:48] LABS: GLUCOSE 182 MG/DL (70-105); TOTAL PROTEIN 8.9 GM/DL (6.4-8.2)
[2020-06-10 13:49] LABS: CARBON DIOXIDE 22 MMOL/L (21-32)
[2020-06-10 13:50] LABS: BILIRUBIN,TOTAL 0.6 MG/DL (0.1-1.0)
[2020-06-10 13:52] LABS: ALKALINE PHOSPHATASE 49 U/L (40-136); GFR ESTIMATED > 60
[2020-06-10 13:53] LABS: BUN/CREATININE RATIO 16
[2020-06-10 13:55] LABS: ALANINE AMINOTRANSFERASE 23 U/L (0-55)
[2020-06-10 14:03] LABS: INR 0.9 (0.8-1.4); PROTHROMBIN TIME PATIENT 12.4 SEC (12.2-14.7)
[2020-06-10 14:07] LABS: FIBRIN DEGRADATION PRODUCTS 0.69 UG/ML (0.00-0.49)
--- NOTE | 2020-06-10 14:10 | Diagnostic Imaging Report ---
INDICATION: soa COMPARISON: 08/26/2017 FINDINGS: Single frontal view of the chest demonstrates normal heart size and pulmonary vascularity. Lungs show low inspiratory volumes with slight diffuse prominence of the interstitium. There is no focal area of alveolar opacification within the lateral left lung base partially obscuring the left heart border. There is no large effusion or pneumothorax. Osseous structures show no acute abnormalities. IMPRESSION: 1. Subtle diffuse interstitial prominence concerning for interstitial pneumonia. 2. More focal opacity within the lateral left base. This may be on the basis of prominent pericardial fat, although more focal confluent pneumonia or atelectasis may have a similar appearance. Dictated by: Dictated on workstation # [id number]
[2020-06-10] MEDS ORDERED: cefTRIAXone FOR IV USE 1,000 MG in WATER (STERILE) FOR INJECTION 10 ML IV ONE (15:00)
[2020-06-10] MEDS ORDERED: AZITHROMYCIN 250 MG TAB (ZITHROMAX) PO ONE (15:00)
[2020-06-10 15:17] LABS: ABG BASE EXCESS 0.5 MMOL/L (-2.5-2.5); ABG OXYGEN SATURATION 94 % (94-100); ABG PCO2 35 MMHG (35-45); ABG PH 7.45 (7.37-7.43); ABG PO2 65 MMHG (79-93); ABG TCO2 25.3 MMOL/L (21.0-31.0)
[2020-06-10 15:18] LABS: ALLENS TEST YES-POS; INSPIRED O2 ROOM AIR; VENTILATOR NO
[2020-06-10] MEDS ORDERED: oxygen NS (15:43)
[2020-06-10] MEDS ORDERED: ONDA4TAB11 PO (15:45)
[2020-06-10] MEDS ORDERED: CEFD300C3 PO (15:45)
[2020-06-10] MEDS ORDERED: AZIT250T12 PO (15:45)
[2020-06-10] MEDS ORDERED: DEXA6TAB6 PO (15:48)
== END 2020-06-10 16:10 ==
LOC: EDUNIT# 12:23 → ER 12:25
DX: U07.1 COVID-19 (principal); J18.9 Pneumonia, unspecified organism; R09.02 Hypoxemia; I10 Essential (primary) hypertension; E78.00 Pure hypercholesterolemia, unspecified; F32.9 Major depressive disorder, single episode, unspecified; Z87.891 Personal history of nicotine dependence; Z86.73 Personal history of transient ischemic attack (TIA), and cerebral infarction without residual deficits
CPT/HCPCS: 36415; 71045; 80053; 82805; 84145; 85025; 85379; 85610; 85730; 86141; 87040; 87804; 94761

== ENCOUNTER → 2020-06-17 | Outpatient (CLI) | payer BC ==
[~2020-06-17] MED LIST changes: +AZIT250T12 PO; +CEFD300C3 PO; +DEXA6TAB6 PO; +ONDA4TAB11 PO; +oxygen NS
--- NOTE | 2020-06-17 11:39 | Diagnostic Imaging Report ---
INDICATION: Persistent cough. History of COVID. COMPARISON: 06/10/2020 FINDINGS: Frontal and lateral radiographic views of the chest were obtained and show interval improved depth of inspiration, but also with interval progression of scattered bilateral diffuse infiltrates. There is no large effusion or pneumothorax. Cardiac silhouette and pulmonary vasculature are within normal limits. Osseous structures show no gross acute abnormalities. IMPRESSION: 1. Interval progression of bilateral diffuse infiltrates. Dictated by: Dictated on workstation # [id number]
== END ==
LOC: RAD 10:36
PROVIDERS: ATTEND Nurse Practitioner Family
DX: J12.82 Pneumonia due to coronavirus disease 2019 (principal)
CPT/HCPCS: 71046

== ENCOUNTER → 2020-09-03 | Outpatient (CLI) | payer BC ==
--- NOTE | 2020-09-03 14:55 | Diagnostic Imaging Report ---
PROCEDURE: US carotid duplex, bilateral. TECHNIQUE: Multiple real-time grayscale images were obtained over the carotid arteries in various projections, bilaterally. Additional spectral analysis and color Doppler duplex images were also obtained. NASCET criteria were utilized. INDICATION: Cerebral infarct. FINDINGS: Real-time imaging shows atherosclerotic plaque, both hard and soft, at the carotid bulb extending into the internal carotid arteries bilaterally. Color Doppler imaging shows antegrade flow throughout both the internal and external carotid arteries as well as the vertebral arteries. Doppler sampling shows normal waveforms and peak velocities within the carotid and vertebral arteries. Carotid ratios are normal at 1.2 on the right and 1.9 on the left. IMPRESSION: Atherosclerotic disease with no hemodynamic changes noted within the carotid arteries. Stenosis is estimated to be 30 to 50% within the internal carotid arteries bilaterally. Parameters based on the consensus panel Bustamante-Scale and Doppler ultrasound criteria published April 2003, Radiology, Volume 229. DOPPLER (peak systolic velocity M/S Right Left CCA .64 .68 ICA Proximal .41 1.01 ICA Mid .74 1.11 ICA Distal .46 1.3 RATIO 1.2 1.9 ECA .91 .90 VERT .41 .54 Dictated by: Dictated on workstation # [id number]
== END ==
LOC: RAD 12:30
PROVIDERS: ATTEND Nurse Practitioner Family
DX: I10 Essential (primary) hypertension (principal); I65.23 Occlusion and stenosis of bilateral carotid arteries; I63.89 Other cerebral infarction
CPT/HCPCS: 93880

== ENCOUNTER → 2020-11-23 | Outpatient (CLI) | payer BC ==
--- NOTE | 2020-11-23 13:17 | Diagnostic Imaging Report ---
Indication: Routine screening. Comparison is made with prior mammogram from 05/21/2019 and 04/29/2018. 2-D and 3-D bilateral screening mammography was performed with CAD. Scattered fibroglandular densities are identified bilaterally. Nodular density in the upper and posterior right breast appears stable. No spiculated mass or malignant appearing microcalcifications are seen. There are benign calcifications bilaterally. Axillae are unremarkable. IMPRESSION: BI-RADS Category 2 No mammographic features suspicious for malignancy are identified. ACR BI-RADS Category 2: Benign findings. Result letter will be mailed to the patient. Note: At least 10% of breast cancer is not imaged by mammography. Dictated by: Dictated on workstation # [id number]
== END ==
LOC: RAD 11:30
PROVIDERS: ATTEND Obstetrics & Gynecology
DX: Z12.31 Encounter for screening mammogram for malignant neoplasm of breast (principal)
CPT/HCPCS: 77063; 77067

== ENCOUNTER → 2021-08-24 | Outpatient (CLI) | payer BC ==
--- NOTE | 2021-08-24 13:36 | Diagnostic Imaging Report ---
PROCEDURE: US carotid duplex bilateral. TECHNIQUE: Multiple Real-time grayscale images were obtained over the carotid arteries in various projections bilaterally. Additional spectral analysis and color Doppler duplex images were also obtained. INDICATION: Followup carotid stenosis. COMPARISON: Correlation is made with the prior exam from 09/03/2020. FINDINGS: There is some plaquing at the carotid bifurcations and proximal ICAs bilaterally. The velocities are normal in both carotid systems on today's study. No significant velocity elevation is identified. There is no stenosis. Both vertebral arteries show antegrade flow. IMPRESSION: There is mild bilateral carotid plaque. There is no evidence of a hemodynamically significant stenosis. Parameters based on the consensus panel Bustamante-Scale and Doppler ultrasound criteria published April 2003, Radiology, Volume 229. DOPPLER (peak systolic velocity M/S Right Left CCA .48 .58 ICA Proximal .63 .62 ICA Mid .60 .92 ICA Distal .51 .76 RATIO 1.3 1.6 ECA .85 .83 VERT .49 .36 Dictated by: Dictated on workstation # [id number]
== END ==
LOC: RAD 08-22 11:15
PROVIDERS: ATTEND Nurse Practitioner Family
DX: I65.23 Occlusion and stenosis of bilateral carotid arteries (principal); I63.89 Other cerebral infarction
CPT/HCPCS: 93880

== ENCOUNTER → 2021-12-02 | Outpatient (CLI) | payer BC ==
--- NOTE | 2021-12-02 09:47 | Diagnostic Imaging Report ---
Indication: Routine screening. Comparison is made with prior mammograms 11/23/2020 and 05/21/2019. 2-D and 3-D bilateral screening mammography was performed with CAD. Scattered fibroglandular densities are identified bilaterally. A density upper outer right breast posterior depth appears stable. No new mass or malignant-appearing microcalcifications are seen. There are scattered benign calcifications. Axillae are unremarkable. IMPRESSION: BI-RADS Category 2 No mammographic features suspicious for malignancy are identified. ACR BI-RADS Category 2: Benign findings. Result letter will be mailed to the patient. Note: At least 10% of breast cancer is not imaged by mammography. Dictated by: Dictated on workstation # [id number]
== END ==
LOC: RAD 08:00
PROVIDERS: ATTEND Obstetrics & Gynecology
DX: Z12.31 Encounter for screening mammogram for malignant neoplasm of breast (principal)
CPT/HCPCS: 77063; 77067

== ENCOUNTER → 2022-02-21 | Outpatient (CLI) | payer BC ==
--- NOTE | 2022-02-21 16:20 | Diagnostic Imaging Report ---
INDICATION: Foot pain x4 weeks. EXAMINATION: Right foot 02/21/2022. FINDINGS: 3 views of the foot demonstrate an oblique fracture of the mid and distal 5th metatarsal. No intra-articular involvement is appreciated. There is diastasis of approximately 3 mm. There is no surrounding callus formation. The remaining osseous structures intact. There is a marked hallux valgus deformity with narrowing and spurring at the 1st metatarsophalangeal joint. Deformity of the proximal 2nd phalanx consistent with an old fracture. IMPRESSION: 1. Acute appearing fracture of the mid to distal 5th metatarsal. 2. Degenerative findings at the great toe. Report faxed to Dr. Aguirre at 4:19 PM 02/21/2022/cb Dictated by: Dictated on workstation # [id number]
== END ==
LOC: RAD 10:21
PROVIDERS: ATTEND Family Medicine
DX: S92.351A Displaced fracture of fifth metatarsal bone, right foot, initial encounter for closed fracture (principal); M19.071 Primary osteoarthritis, right ankle and foot; X58.XXXA Exposure to other specified factors, initial encounter
CPT/HCPCS: 73630

== ENCOUNTER 2022-05-19 05:42 | Outpatient (CLI) | payer BC ==
[~2022-05-19] VITALS: Ht 167.7 cm; Wt 94.5 kg
[2022-05-19] MEDS ORDERED: CARV3.122 PO (15:10)
[2022-05-19] MEDS ORDERED: ATEN100T PO (15:10)
[2022-05-19] MEDS ORDERED: HYDR12.56 PO (15:11)
[2022-05-19] MEDS ORDERED: POTA-177 PO (15:11)
== END 2022-05-19 15:16 | disposition home or self-care (01) ==
LOC: PREOP 05:42
PROVIDERS: ATTEND Internal Medicine
DX: Z01.818 Encounter for other preprocedural examination (principal); Z86.010 Personal history of colon polyps

== ENCOUNTER 2022-05-26 09:05 | Day surgery (SDC) | payer BC ==
--- NOTE | 2022-05-18 05:47 | HISTORY AND PHYSICAL ---
COLONOSCOPY HISTORY AND PHYSICAL DATE OF ADMISSION: 05/26/2022 HISTORY OF PRESENT ILLNESS: The patient is a 61-year-old white female referred by Dr. Aguirre for colonoscopy. She last underwent colonoscopy 4 years ago, at which time she had two tubular adenomas removed, one from the hepatic flexure and the other one from the distal transverse colon. Several family members have had colon polyps and she has one grandmother diagnosed with colon cancer in her 60s. She reports that she has been feeling well. There have been no changes in her health history since her last colonoscopy per her report. She denies bright red blood per rectum, melena or change in bowel habit. PAST MEDICAL HISTORY: Significant for type 2 diabetes, hypertension and hyperlipidemia with no known history of vascular disease. FAMILY HISTORY: As noted in the HPI. 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 No history of illicit drug use and no significant alcohol consumption. REVIEW OF SYSTEMS: CONSTITUTIONAL: Denies night sweats, chills, fever, change in weight. PULMONARY: Denies cough, wheezing or shortness of breath. CARDIOVASCULAR: Denies orthopnea, PND, pedal edema, chest discomfort, or syncope. GASTROINTESTINAL: As noted in the HPI. PHYSICAL EXAMINATION: GENERAL: Reveals a white female, appeared to be in no acute distress. VITAL SIGNS: Blood pressure 130/70, weight 208 pounds, which is down 35 pounds from her last office weight 4 years ago. HEENT: Unremarkable. Sclerae nonicteric. CHEST: Clear to auscultation. CARDIOVASCULAR: Reveals a regular rate and rhythm without murmur, S3, or S4. ABDOMEN: Soft, supple without mass, organomegaly, or tenderness. EXTREMITIES: Reveal no cyanosis, clubbing or edema. ASSESSMENT: The patient is being set up for surveillance colonoscopy due to past history of colon polyps. See HPI and a family history for colon cancer, index case being her grandmother diagnosed around the age of 60. Prep instructions with Suprep kit were given. Questions answered. An electronic medical record was reviewed. Thank you for the referral of this pleasant lady. Job ID: [id number] DocumentID: [id number] Dictated Date: 05/15/2022 17:44:53 Cold Storage Supervisor Date: 05/15/2022 18:03:00 Dictated By: LIBORIO العلي MD
[~2022-05-26] VITALS: Ht 167.7 cm; Wt 94.5 kg
[~2022-05-26 09:05] MED LIST changes: +ATEN100T PO; +CARV3.122 PO; +HYDR12.56 PO; +POTA-177 PO
[2022-05-26] MEDS ORDERED: LACTATED RINGERS 1,000 ML IV STA (09:08)
[2022-05-26 09:25] VITALS: BP 144/73
--- NOTE | 2022-05-26 09:50 | Pre-Op Note & Conscious Sedat ---
Pre-Operative Progress Note Date H&P Reviewed: May 26, 2022 Time H&P Reviewed: 09:50 History & Physical: H&P Reviewed, Patient Examed, No changes noted Pre-Op Diagnosis: hx of colon polyps with family history of colon cancer Conscious Sedation Pre-Proced ASA Score 2 For ASA 3 and 4: Consider anesthesia and medical clearance. Also, for patients with a history of failed moderate sedation consider anesthesia. Airway Lungs Heart ASA score ASA 1: a normal healthy patient ASA 2: a patient with a mild systemic disease (mid diabetes, controlled hypertension, obesity ASA 3: a patient with a severe systemic disease that limits activity (angina, COPD, prior Myocardial infarction) ASA 4: a patient with an incapacitating disease that is a constant threat to life (CHF, renal failure) ASA 5: a moribund patient not expected to survive 24 hrs. (ruptured aneurysm) ASA 6: a declared brain- patient whose organs are being harvested. For emergent operations, add the letter E after the classification Mallampati Classification Grade 2 Sedation Plan Analgesia, Amnesia, Plan communicated to team members, Discussed options with patient/fam, Discussed risks with patient/fam The patient is an appropriate candidate to undergo the planned procedure, sedation, and anesthesia. The patient immediately re-assessed prior to indication. LIBORIO العلي MD May 26, 2022 09:50
[2022-05-26] MEDS ORDERED: PROPOFOL INJECTION 50 ML IV ONE (10:42)
[2022-05-26 11:15] VITALS: BP 124/60
[2022-05-26 11:20] VITALS: BP 112/55
--- NOTE | 2022-05-26 11:22 | Progress Note-Post Operative ---
Post-Procedure Note Physician (s)/Sewing Demonstrator (s) Physician LIBORIO العلي MD Pre-Procedure Diagnosis Pre-Procedure Diagnosis: hx of colon polyps with family history of colon cancer Post-Procedure Diagnosis Post-operative diagnosis: Prior to undergoing colonoscopy digital rectal evaluation was performed. Anal sphincter tone was normal and the perianal reflexes intact. No abnormalities noted on digital inspection of the anal canal or distal rectal vault. The colonoscope was then inserted into the rectum and under direct visualization advanced to the cecum. The cecum was identified by identification of the appendiceal orifice and the ileocecal valve. Careful inspection was made as the colonoscope was withdrawn. Quality of the prep was good. Findings colon There were no evidence for internal or external hemorrhoids. Hyperplastic appearing 3 mm sessile polyps were noted in the mid rectum the rectosigmoid junction as well as mid transverse colon. All were biopsied and ablated submitted fresh to pathology. There was no evidence of diverticular disease and no other abnormalities noted on today's procedure to the cecum under good prep conditions. A/P 1. 3 diminutive sessile hyperplastic appearing polyps were biopsied and ablated today noted in the mid rectum and rectosigmoid junction and mid transverse colon. This long as there are no surprises on histopathology report would advocate consideration for repeat surveillance colonoscopy in 5 years. CC: LIBORIO Kevin MD, MD May 26, 2022 11:22
[2022-05-26 11:55] VITALS: BP 112/55
== END 2022-05-26 11:43 | disposition home or self-care (01) ==
LOC: ENDO 09:05
PROVIDERS: ATTEND Internal Medicine
DX: Z12.11 Encounter for screening for malignant neoplasm of colon (principal); K63.5 Polyp of colon; Z86.010 Personal history of colon polyps; Z80.0 Family history of malignant neoplasm of digestive organs; E66.9 Obesity, unspecified; Z68.33 Body mass index [BMI] 33.0-33.9, adult; Z87.891 Personal history of nicotine dependence; E11.9 Type 2 diabetes mellitus without complications
CPT/HCPCS: 82947; 88305

== ENCOUNTER → 2022-08-31 | Outpatient (CLI) | payer BC ==
--- NOTE | 2022-08-31 15:31 | Diagnostic Imaging Report ---
PROCEDURE: US carotid duplex, bilateral. TECHNIQUE: Multiple real-time grayscale images were obtained over the carotid arteries in various projections, bilaterally. Additional spectral analysis and color Doppler duplex images were also obtained. INDICATION: Hypertension. FINDINGS: There is some owxh-kh-ycpqwwyj plaque about the left carotid bifurcation. There are no focally elevated velocities in the right common carotid artery or internal carotid artery. There are some mildly elevated velocities in the left common carotid artery up to 173 cm/s. ICA/CCA ratio is 2.0. There is antegrade flow in both vertebral arteries. IMPRESSION: Syrn-kz-emynorto left carotid plaque, however spectral analysis shows no evidence of a hemodynamically significant stenosis. Parameters based on the consensus panel Bustamante-Scale and Doppler ultrasound criteria published April 2003, Radiology, Volume 229. DOPPLER (peak systolic velocity M/S Right Left CCA 0.79 0.87 ICA Proximal 0.58 0.59 ICA Mid 0.80 1.73 ICA Distal 0.76 1.06 RATIO 1.01 2.00 ECA 1.22 1.05 VERT 0.40 0.63 Dictated by: Dictated on workstation # [id number]
== END ==
LOC: RAD 11:39
PROVIDERS: ATTEND Nurse Practitioner Family
DX: I65.22 Occlusion and stenosis of left carotid artery (principal); I10 Essential (primary) hypertension; I25.10 Atherosclerotic heart disease of native coronary artery without angina pectoris
CPT/HCPCS: 93880

== ENCOUNTER → 2023-02-05 | Outpatient (CLI) | payer BC ==
--- NOTE | 2023-02-05 09:33 | Diagnostic Imaging Report ---
INDICATION: Routine screening. Comparison is made with prior mammogram from 12/02/2021 and 11/23/2020. 2-D and 3-D bilateral screening mammography was performed with CAD. The current study was also evaluated with a Computer Aided Detection (CAD) system. Both breasts are heterogeneously dense, limiting the sensitivity of mammography. The parenchymal pattern is stable. Density in the upper outer right breast is stable. There are scattered benign calcifications. No new mass or malignant-appearing microcalcifications are seen. Axillae are unremarkable. IMPRESSION: BI-RADS Category 2 No mammographic features suspicious for malignancy are identified. ACR BI-RADS Category 2: Benign findings. Result letter will be mailed to the patient. Note: At least 10% of breast cancer is not imaged by mammography. Dictated by: Dictated on workstation # [id number]
== END ==
LOC: RAD 07:40
PROVIDERS: ATTEND Family Medicine
DX: Z12.31 Encounter for screening mammogram for malignant neoplasm of breast (principal)
CPT/HCPCS: 77063; 77067

== ENCOUNTER → 2023-04-19 | Outpatient (CLI) | payer BC ==
--- NOTE | 2023-04-19 14:00 | Diagnostic Imaging Report ---
PROCEDURE: MR imaging of the brain without contrast. TECHNIQUE: Multiplanar, multisequence MR imaging of the brain was performed without contrast. INDICATION: Memory loss. COMPARISON: Brain MRI 02/29/2020. Findings: No acute infarct. No acute or chronic hemorrhage. The ventricles are normal in size and configuration without hydrocephalus. Mild to moderate scattered FLAIR hyperintensities in the subcortical and periventricular deep white matter, a nonspecific finding, most commonly seen with chronic small vessel ischemic disease. Encephalomalacia within the left occipital lobe The scalp and calvarium are normal. The pituitary and sella are normal. No Chiari malformation. The visualized upper cervical spine is normal. The visualized orbits and globes are normal. The visualized paranasal sinuses are clear. The mastoid air cells are clear. Normal flow voids within the vertebral, basilar, and internal carotid arteries indicating patency. IMPRESSION: No acute infarct, hemorrhage, mass, or hydrocephalus. Similar mild to moderate chronic small vessel ischemic disease. Encephalomalacia within left occipital lobe. Dictated by: Dictated on workstation # [id number]
== END ==
LOC: RAD 12:32
PROVIDERS: ATTEND Nurse Practitioner Family
DX: G93.89 Other specified disorders of brain (principal); I67.89 Other cerebrovascular disease
CPT/HCPCS: 70551